=== PATIENT | female | born 1950 | race Hispanic/Latino ===

== ENCOUNTER 2016-11-06 12:02 | Inpatient (IN) | payer MEDICARE, MEDICAID ==
[2016-11-06 13:09] LABS: #Eosinphils 0.2 thou/uL (0.0-0.7); #Lymphocytes 0.9 thou/uL (1.20-3.40); #Monocytes 0.5 thou/uL (0.11-0.59); #Neutrophils 6.3 thou/uL (1.40-6.50); %Basophils 0.4 % (0.0-1.0); %Eosinophils 2.8 % (0.0-10.0); %Lymphocytes 11.5 % (21.0-51.0); %Monocytes 6.1 % (0.0-10.0); Hematocrit 21.3 % (36.0-47.0); Mean Platelet Volume 6.3 fL (7.4-10.4); Red Blood Cell (RBC) Count 2.36 mill/uL (4.20-5.40)
[2016-11-06 13:24] LABS: PTT 23.7 SEC (22.9-36.1); Prothrombin Time 13.3 SEC (12.0-14.7)
[2016-11-06 13:33] LABS: Troponin I Less than 0.010 ng/mL (< 0.028)
[2016-11-06 13:34] LABS: Lactic Acid - Sepsis 1.9 mmol/L (0.5-2.2)
[2016-11-06 13:37] LABS: ALT (SGPT) 9 U/L (8-55); AST (SGOT) 9 U/L (5-34); Alkaline Phosphatase 65 U/L (40-150); Anion Gap 14 mmol/L (10-20); BUN (Urea Nitrogen) 33 mg/dL (9.8-20.1); Bilirubin, Total Less than 0.2 mg/dL (0.2-1.2); CK (CPK) 58 U/L (29-168); Calc. Creatinine Clearance 0 mL/min (70-130); Calcium 8.7 mg/dL (7.8-10.44); Carbon Dioxide 22 mmol/L (23-31); Chloride 102 mmol/L (98-107); Estimated GFR-MDRD 45; Globulin 2.4 g/dL (2.4-3.5); Lipase 14 U/L (8-78); Protein, Total 5.1 g/dL (6.0-8.3)
[2016-11-06] MEDS ORDERED: Ondansetron HCl/PF 4 MG/2 ML Vial ONE (13:43)
--- NOTE | 2016-11-06 13:56 | RAD ---
PORTABLE CHEST 1 VIEW: DATE: 11/06/16. TIME: 1:31 p.m. HISTORY: Abdominal pain, nausea, vomiting, bilateral lower extremity swelling. FINDINGS: Comparison is made with the exam of 04/13/16. The heart size is mildly enlarged. The aorta is tortuous. The lungs are expanded without focal are as of consolidation, pneumothorax, laura pulmonary edema, or pleural effusions. There are degenerat artem changes in the acromioclavicular joints. IMPRESSION: No radiographic evidence of acute cardiopulmonary process. POS: [facility]
--- NOTE | 2016-11-06 14:01 | CT ---
ABDOMEN CT WITHOUT CONTRAST PELVIC CT WITHOUT CONTRAST: Date: 11/06/16 HISTORY: Abdominal pain, nausea and vomiting x3 weeks. Back surgery. Screw placement. TECHNIQUE: Abdomen and pelvic CT are performed without IV or oral contrast, utilizing renal stone protocol. Cor onal reformatted images are submitted for interpretation. COMPARISON: 10/18/16. FINDINGS: ABDOMEN CT: Dependent atelectatic changes in the lung bases. Heart size is within normal limits. No significant pericardial fluid. Visualized aorta has an overall normal caliber. There is some atherosclerosis. No periaortic fat stranding. Symmetric attenuation of the psoas muscles. No gastrohepatic, retrocrural, or periportal lymphadenopathy. Limited evaluation of the solid organs due to lack of IV contrast. No solid organ abnormality. Contracted gallbladder, likely due to nonfasting state. Surgically absent right kidney. With regard to the left kidney, there is compensatory hypertrophy. N o hydronephrosis, nephrolithiasis, or perinephric fat stranding. Left ureter has a normal caliber. N o hydroureter, periureteral fat stranding, or ureterolithiasis. Limited evaluation of the alimentary canal due to lack of oral contrast. Multiple normal caliber sm all bowel loops. Ileocecal junction is normal. There is some debris and fecal material in the append ix. No evidence of periappendiceal inflammation. The appendix appears to be unchanged when compared to the prior exam. There is scattered fecal material in the colon. Diverticulosis in the left hemico braxton. No diverticulitis. PELVIC CT: Surgically absent uterus. No mass, lymphadenopathy, free air, or free fluid. There are severe degenerative changes in the left and right hip. There is lumbar fusion hardware. IMPRESSION: 1. Status post right nephrectomy. 2. No evidence of nephrolithiasis or obstructive uropathy. POS: [facility]
[2016-11-06 14:02] LABS: Bilirubin Negative (Negative); Blood, Urine Negative (Negative); Glucose, Urine (Dipstick) Negative (Negative); Ketone, Urine Negative (Negative); Nitrite Negative (Negative); Protein, Urine (Dipstick) Negative (Neg-Trace); Urobilinogen 0.2 mg/dL (0.2-1.0)
[2016-11-06] MEDS ORDERED: Pantoprazole 40 MG VIAL ONE (14:16)
[2016-11-06] MEDS ORDERED: Sodium Chloride 0.9% 1,000 ML IV SCH (16:30)
[2016-11-06] MEDS ORDERED: Ondansetron ODT 4 MG TAB SL PRN (16:31)
[2016-11-06] MEDS ORDERED: Ondansetron HCl/PF 4 MG/2 ML Vial IVP PRN ×2 (16:31→16:53)
[2016-11-06 16:33] VITALS: BMI 37.2
[2016-11-06] MEDS ORDERED: Mag-Al 1200 mg/1200 mg/30 ML UDCUP PO PRN (16:53)
[2016-11-06] MEDS ORDERED: Loperamide HCl 2 MG CAP PO PRN (16:53)
[2016-11-06] MEDS ORDERED: Diabetic Tussin 200 MG/10 ML UDCUP PO PRN (16:53)
[2016-11-06] MEDS ORDERED: Loratadine 10 MG TAB PO PRN (16:53)
[2016-11-06] MEDS ORDERED: Artificial Tears 18 DROP/0.9 ML EA EYE PRN (16:53)
[2016-11-06] MEDS ORDERED: Dextrose 50% Abboject 50 ML SYRINGE SLOW IVP PRN (16:53)
[2016-11-06] MEDS ORDERED: Acetaminophen 325 MG TAB PO PRN (16:53)
[2016-11-06] MEDS ORDERED: Dextrose 5% in Water 1,000 ML IV PRN (16:53)
[2016-11-06] MEDS ORDERED: Milk Of Magnesia 30 ML UDCUP PO PRN (16:53)
[2016-11-06] MEDS ORDERED: Eucerin (Mineral Oil/Petrolatum,White) 30 gm Jar TOP PRN (16:53)
[2016-11-06] MEDS ORDERED: Ondansetron ODT 4 MG TAB PO PRN (16:53)
[2016-11-06] MEDS ORDERED: Sodium Chloride 0.65% Nasal 44 ML BOT EA NARE PRN (16:53)
[2016-11-06] MEDS ORDERED: Senokot 8.6 MG TAB PO PRN (16:53)
[2016-11-06] MEDS ORDERED: Zolpidem Tartrate 5 MG TAB PO PRN (16:53)
[2016-11-06] MEDS ORDERED: HumaLOG 300 UNITS/3 ML VIAL SC PRN ×2 (16:53)
[2016-11-06 17:29] LABS: Iron 80 ug/dL (50-170)
[2016-11-06] MEDS: HYDROcodone/Acetaminophen 5/325 mg Tablet PO PRN ×2 (17:42→23:13)
--- NOTE | 2016-11-06 18:09 | HP ---
PRIMARY CARE PHYSICIAN: Jenny Gongora, Family Nurse Practitioner. REASON FOR ADMISSION: Symptomatic anemia, abdominal pain. HISTORY OF PRESENT ILLNESS: A 66-year-old female with a history of hypertension, diabetes type 2, morbid obesity who came to the emergency room with complaint of abdominal pain. Her abdomin al pain is generalized, dull in nature, about 8/10 in intensity, associated with nausea and vomiting . She also gives a history of melanotic stool. She denies any hematemesis. She denies any hematoc hezia. She denies taking NSAID. The patient was feeling very weak, dizzy, and lightheaded at home and she was feeling shortness of breath on exertion for last couple of days. Today, she came to emergency room and her hemoglobin was found with 6.7. On 10/18/2016, her hemoglo bin was 8.5. This patient had severe anemia in 01/2015. At that time, patient had EGD and colonosc opy which was unremarkable and capsular endoscopy was advised at that time. Since then, she never h ad any further workup. She denies any ongoing hematochezia, melena. She denies any fever, chills, and UTI symptoms. She denies any syncope. She does report bilateral lower extremity pitting edema. She does report dyspnea on exertion. In the emergency room, 2 units of PRBC was typed and crossed and at this point the patient is being admitted to medical floor for further evaluation and treatment. REVIEW OF SYSTEMS: The following complete review of systems was negative, unless otherwise mentione d in the HPI or below: Constitutional: Weight loss or gain, ability to conduct usual activities. Skin: Rash, itching. Eyes: Double vision, pain. ENT/Mouth: Nose bleeding, neck stiffness, pain, tenderness. Cardiovascular: Palpitations, dyspnea on exertion, orthopnea. Respiratory: Shortness of breath, wheezing, cough, hemoptysis, fever or night sweats. Gastrointestinal: Poor appetite, abdominal pain, heartburn, nausea, vomiting, constipation, or diar thomas. Genitourinary: Urgency, frequency, dysuria, nocturia. Musculoskeletal: Pain, swelling. Neurologic/Psychiatric: Anxiety, depression. Allergy/Immunologic: Skin rash, bleeding tendency. Please see my HPI for pertinent positive and negative. All other review of systems reviewed and neg ative except as mentioned in the HPI. PAST MEDICAL HISTORY: Diabetes type 2, hypertension, dyslipidemia, morbid obesity, renal agenesis, history of iron deficiency anemia in past, chronic constipation, and chronic low back pain. PAST PSYCHIATRIC HISTORY: Anxiety, depression, and bipolar disorder/schizophrenia. Patient require d inpatient psychiatric hospitalization in 2004 in [place]. PAST SURGICAL HISTORY: Hysterectomy, back surgery on three disk with screw placement, colonoscopy, upper endoscopy, and kidney removal. SOCIAL HISTORY: Patient lives at home. She is . No history of tobacco, alcohol or illicit drug abuse. FAMILY HISTORY: No strong family history of premature coronary artery disease, stroke or cancer. ALLERGIES: No known drug allergies. CURRENT HOME MEDICATIONS: The patient does not have any medication with her at this point, but base d on our hospital record, the patient was on following medications. We need to verify her current h ome medications. Zanaflex 8 mg t.i.d. p.r.n., risperidone 1 mg p.o. at bedtime, metformin 500 mg p. o. b.i.d., glipizide 10 mg p.o. daily, MiraLax 17 grams p.o. daily, lovastatin 10 mg p.o. at bedtime , Prinzide one tablet p.o. daily, Lasix 20 mg p.o. daily, ferrous sulfate 325 mg p.o. t.i.d., Colace 100 mg p.o. b.i.d., and vitamin D3 1000 units p.o. daily. EMERGENCY ROOM COURSE: Patient is receiving Protonix drip, morphine 4 mg for abdominal pain and giv en 2 units of type and crossed, Zofran 8 mg given, and IV fluid given. PHYSICAL EXAMINATION: VITAL SIGNS: On arrival, blood pressure 91/56, pulse 70, respiratory rate 15, temperature 99.1, sat uration 97% on room air, weight 75.3 kilograms. GENERAL: Patient is currently chronically ill, pale, no obvious acute distress. HEAD: Normocephalic, atraumatic. EYES: Pupils round, reactive to light. Conjunctivae pale. ENT: Somewhat dry appearing mucous membranes. No oral lesions. No pharyngeal erythema, no exudate s. NECK: Supple. Range of motion is normal. No meningeal signs of irritation, short neck. LUNGS: Clear to auscultation without any rhonchi or rales. CARDIAC: S1 and S2 regular. Hemic murmur noted. No gallop, no rub. ABDOMEN: Obesity present. Diffuse tenderness. No peritoneal signs, no guarding, no rigidity, no r ebound, no Tobar's sign, no suprapubic discomfort. BACK: Examination unremarkable, no CVA tenderness. EXTREMITIES: Upper extremity passive movements of all joints are normal. Lower extremity bilateral pitting edema noted. Good peripheral pulsation. SKIN: No skin rash. HEMATOLOGICAL SYSTEM: No lymphadenopathy. PSYCHIATRIC: Normal affect. NEUROLOGIC: Nonfocal examination. IMAGING AND LABORATORY DATA: 1. EKG based on my review, premature atrial complexes, normal sinus rhythm. CT of the abdomen and pelvis, no acute abdominal process, status post right nephrectomy. 2. CBC: WBC 8.0, hemoglobin 6.7, platelet 526. INR 1.0. 3. BMP: Sodium 133, potassium 4.7, chloride 102, carbon dioxide 22, BUN 33, creatinine 1.20, gluco se 232, calcium 8.7, and lactic acid 1.9. 3. LFT: AST 9, ALT 9, alkaline phosphatase 65, albumin 2.7, CK 58, CK-MB 1.2, troponin I less than 0.010. BNP 121.9. Urinalysis normal. 4. Chest x-ray based on my review, no acute cardiopulmonary process. ASSESSMENT AND PLAN/IMPRESSION: 1. Symptomatic anemia. This patient's current hemoglobin is 6.7. A couple of weeks ago, her hemog lobin was 8.5. This patient does report melanotic stools. The patient does have diffuse abdominal pain. At this point, the patient will be admitted to medical floor. We will give her 1 unit of blo od transfusion for her symptomatic anemia and we will repeat CBC tomorrow. If needed, we will consi della transfusing more to keep hemoglobin around 7-8. We will also consult inside polisher for ane chago workup. 2. Melena, it is unclear whether this is related to gastrointestinal bleeding versus iron supplemen tation. We will check stool for guaiac. We will check anemia workup and we will consult gastroente rologist for endoscopic evaluation. At this point, the patient's blood pressure runs low and that i s why we will hold on blood pressure medication and we will closely monitor her hemoglobin and her h emodynamics. 3. Chronic kidney disease stage 3. We will monitor renal function. This patient has only one kidn ey and chronic kidney disease may be due to compensatory other kidney hypertrophy. 4. Diabetes type 2. We will continue with glipizide 10 mg p.o. daily, metformin 500 mg p.o. b.i.d. and insulin as per sliding scale protocol. If patient is n.p.o., then we will hold on oral hypogly cemic agents. 5. Hypertension, but currently low blood pressure and that is why we will hold on antihypertensive medication. 6. Schizophrenia. We will continue patient's psychiatric medication risperidone as per home dosage and Zoloft as per home dosage. 7. Dyslipidemia. We will continue patient's home medication lovastatin 10 mg p.o. daily. 8. Deep venous thrombosis prophylaxis. We will hold on Lovenox therapy because of melena history. 9. Gastrointestinal prophylaxis. Patient is already on Protonix therapy. At this point, the patie nt is on Protonix drip and subsequently we will change to p.o. Protonix. 10. Code status: The patient is FULL CODE. Patient's is the surrogate decision maker. DISPOSITION AND PLAN: Based on clinical course.
[2016-11-06] MEDS ORDERED: risperiDONE 1 MG TAB PO SCH (23:00)
[2016-11-07] MEDS: PANTOPRAZOLE IVP SCH ×3 (00:47→20:02)
[2016-11-07] MEDS: ADMIXTURE FEE IVP SCH ×3 (00:47→20:02)
[2016-11-07] MEDS: tiZANidine HCl 4 MG TAB PO PRN ×3 (00:47→16:00)
[2016-11-07] MEDS: SODIUM CHLORIDE IVP SCH ×3 (00:47→20:02)
[2016-11-07] MEDS: HYDROcodone/Acetaminophen 5/325 mg Tablet PO PRN ×5 (03:36→19:59)
[2016-11-07 05:59] LABS: #Basophils 0.1 thou/uL (0.0-0.2); #Eosinphils 0.2 thou/uL (0.0-0.7); #Lymphocytes 1.7 thou/uL (1.20-3.40); #Monocytes 0.8 thou/uL (0.11-0.59); %Basophils 0.8 % (0.0-1.0); %Eosinophils 3.6 % (0.0-10.0); %Monocytes 11.6 % (0.0-10.0); Hematocrit 30.4 % (36.0-47.0); Mean Platelet Volume 6.8 fL (7.4-10.4); Red Blood Cell (RBC) Count 3.32 mill/uL (4.20-5.40); White Blood Cell (WBC) Count 6.8 thou/uL (4.8-10.8)
[2016-11-07 07:02] LABS: Anion Gap 14 mmol/L (10-20); BUN (Urea Nitrogen) 24 mg/dL (9.8-20.1); Calc. Creatinine Clearance 69 mL/min (70-130); Calcium 7.9 mg/dL (7.8-10.44); Carbon Dioxide 19 mmol/L (23-31); Chloride 110 mmol/L (98-107); Estimated GFR-MDRD 58
[2016-11-07] MEDS ORDERED: tiZANidine HCl 4 MG TAB PO PRN (07:43)
[2016-11-07] MEDS: Lisinopril/Hydrochlorothiazide 20 mg/12.5 mg Tablet PO SCH (09:07)
[2016-11-07] MEDS: Pioglitazone HCl 15 MG TAB PO SCH (09:08)
[2016-11-07] MEDS: Ferrous Sulfate 325 MG TAB PO SCH ×2 (09:10→16:01)
[2016-11-07] MEDS: Lorazepam 1 MG TAB PO PRN (11:45)
--- NOTE | 2016-11-07 12:08 | PDOC.PN ---
- Subjective Encounter Start Date: 11/07/16 Encounter Start Time: 09:10 -: old records requested/rev spoke with spanish moss picker, pt has epigastric pain, she reports melena, no hematochezia Patient seen and examined. No overnight events - Objective Resuscitation Status: Resuscitation Status FULL:Full Resuscitation MAR Reviewed: Yes Vital Signs & Weight: Vital Signs (12 hours) Temp Pulse Pulse Resp BP BP BP 11/07/16 09:07 63 143/64 H 11/07/16 08:00 98.1 F 63 18 143/64 H 11/07/16 04:00 97.9 F 67 16 136/70 11/07/16 03:20 98.2 F 70 18 114/59 L Pulse Ox 11/07/16 09:07 11/07/16 08:00 100 11/07/16 04:00 99 11/07/16 03:20 Weight Weight 166 lb I&O: 11/06/16 11/07/16 11/08/16 06:59 06:59 06:59 Intake Total 940 Balance 940 Result Diagrams: 11/07/16 05:07 11/07/16 05:07 Additional Labs: Accuchecks 11/07/16 11/06/16 11/06/16 04:50 19:32 16:25 POC Glucose 165 H 154 H 149 H Phys Exam - Physical Examination Constitutional: NAD HEENT: PERRLA, moist MMs, sclera anicteric Neck: no JVD, supple Respiratory: no wheezing, no rales, no rhonchi Cardiovascular: RRR, no significant murmur, no rub Gastrointestinal: soft, no distention, positive bowel sounds obesity, epigasstric discomfort Musculoskeletal: pulses present, edema present Neurological: non-focal, normal sensation Psychiatric: normal affect, A&O x 3 Skin: no rash, normal turgor Dx/Plan (1) Epigastric abdominal pain Code(s): R10.13 - EPIGASTRIC PAIN Status: Acute (2) Melena Code(s): K92.1 - MELENA Status: Acute (3) Symptomatic anemia Code(s): D64.9 - ANEMIA, UNSPECIFIED Status: Acute (4) Chronic back pain Code(s): M54.9 - DORSALGIA, UNSPECIFIED; G89.29 - OTHER CHRONIC PAIN Status: Chronic (5) Diabetes type 2, controlled Code(s): E11.9 - TYPE 2 DIABETES MELLITUS WITHOUT COMPLICATIONS Status: Chronic (6) Dyslipidemia Code(s): E78.5 - HYPERLIPIDEMIA, UNSPECIFIED Status: Chronic (7) Hypertension Code(s): I10 - ESSENTIAL (PRIMARY) HYPERTENSION Status: Chronic (8) Iron deficiency anemia Code(s): D50.9 - IRON DEFICIENCY ANEMIA, UNSPECIFIED Status: Chronic (9) Obesity (BMI 30-39.9) Code(s): E66.9 - OBESITY, UNSPECIFIED Status: Chronic (10) Schizophrenia Code(s): F20.9 - SCHIZOPHRENIA, UNSPECIFIED Status: Chronic - Plan cont current plan of care, plan discussed w/ family * H & H improved after 2 unit * will repeat labs tomorrow * GI consulted * medication reviewed as below * symptomatic treatment. * discussed with pt and family with wool cleaner. Review of Systems - Review of Systems Eyes: negative: Pain, Vision Change, Conjunctivae Inflammation, Eyelid Inflammation, Redness, Other Respiratory: negative: Cough, Dry, Shortness of Breath, Hemoptysis, SOB with Excertion, Pleuritic Pain, Sputum, Wheezing Cardiovascular: negative: Chest Pain, Palpitations, Orthopnea, Paroxysmal Noc. Dyspnea, Edema, Light Headedness, Other Gastrointestinal: Abdominal Pain. negative: Nausea, Vomiting, Diarrhea, Constipation, Melena, Hematochezia, Other Genitourinary: negative: Dysuria, Frequency, Incontinence, Hematuria, Retention , Other Musculoskeletal: negative: Neck Pain, Shoulder Pain, Arm Pain, Back Pain, Hand Pain, Leg Pain, Foot Pain, Other - Medications/Allergies Allergies/Adverse Reactions: Allergies Allergy/AdvReac Type Severity Reaction Status Date / Time No Known Allergies Allergy Verified 10/27/13 23:58 Medications: Current Medications Acetaminophen (Tylenol) 650 mg PO Q4H PRN PRN Reason: Headache/Fever or Pain Last Admin: 11/06/16 21:14 Dose: 650 mg Hydrocodone Bitart/Acetaminophen ([place] 5/325) 1 tab PO Q4H PRN PRN Reason: Moderate Pain (4-6) Last Admin: 11/07/16 11:48 Dose: 1 tab Al Hydroxide/Mg Hydroxide (Maalox) 30 ml PO Q6H PRN PRN Reason: Heartburn or Indigestion Artificial Tears (Tears Naturale) 0 drop EA EYE PRN PRN PRN Reason: Dry Eyes Dextrose/Water (Dextrose 50%) 25 gm SLOW IVP PRN PRN PRN Reason: Hypoglycemia Ferrous Sulfate (Feosol) 325 mg PO BID-[facility] Last Admin: 11/07/16 09:10 Dose: 325 mg Glipizide (Glucotrol) 10 mg PO DAILY-[facility] Glucagon (Glucagon) 1 mg IM PRN PRN PRN Reason: Hypoglycemia Guaifenesin (Robitussin Sf) 200 mg PO Q4H PRN PRN Reason: Cough Lisinopril/HCTZ (Prinizide 20-12.5) 2 tab PO DAILY [facility] Last Admin: 11/07/16 09:07 Dose: 2 tab Hydralazine HCl (Apresoline) 10 mg SLOW IVP Q4H PRN PRN Reason: Systolic BP > 180 Pantoprazole Sodium 80 mg/Miscellaneous Medication 1 each/ Sodium Chloride 100 mls @ 10 mls/hr IVP INF [facility] Last Admin: 11/07/16 10:26 Dose: 100 mls Dextrose/Water (D5w) 1,000 mls @ 0 mls/hr IV .Q0M PRN; As Directed PRN Reason: Hypoglycemia Insulin Human Lispro (Humalog) 0 units SC .MODERATE SLIDING SC PRN PRN Reason: Moderate Correctional Scale Insulin Human Lispro (Humalog) 0 units SC .BEDTIME SLIDING SC PRN PRN Reason: Bedtime Correctional Scale Loperamide HCl (Imodium) 2 mg PO PRN PRN PRN Reason: Diarrhea/Loose Stools Loratadine (Claritin) 10 mg PO DAILYPRN PRN PRN Reason: Sinus Symptoms Lorazepam (Ativan) 1 mg PO Q4H PRN PRN Reason: Anxiety/Agitation Last Admin: 11/07/16 11:45 Dose: 1 mg Magnesium Hydroxide (Milk Of Magnesium) 30 ml PO DAILYPRN PRN PRN Reason: Constipation Metformin HCl (Glucophage) 500 mg PO BID-[facility] Last Admin: 11/07/16 09:10 Dose: 500 mg Mineral Oil/White Petrolatum (Eucerin Cream) 0 gm TOP BIDPRN PRN PRN Reason: Dry Skin Ondansetron HCl (Zofran Odt) 4 mg PO Q6H PRN PRN Reason: Nausea/Vomiting Ondansetron HCl (Zofran) 4 mg IVP Q6H PRN PRN Reason: Nausea/Vomiting Pioglitazone HCl (Actos) 15 mg PO DAILY [facility] Last Admin: 11/07/16 09:08 Dose: 15 mg Risperidone (Risperidone) 1 mg PO HS [facility] Risperidone (Risperidone) 1 mg PO HS DIMA Senna (Senokot) 2 tab PO HSPRN PRN PRN Reason: Constipation Simvastatin (Zocor) 10 mg PO HS [facility]IMA Sodium Chloride (Lorain Nasal [place] 0.65%) 0 ml EA NARE QIDPRN PRN PRN Reason: Nasal Congestion Tizanidine HCl (Zanaflex) 8 mg PO Q8H PRN PRN Reason: ARTHRITIS PAIN Last Admin: 11/07/16 09:06 Dose: 8 mg Tizanidine HCl (Zanaflex) 8 mg PO TID PRN PRN Reason: Muscle Spasm Zolpidem Tartrate (Ambien) 5 mg PO HSPRN PRN PRN Reason: Insomnia
[2016-11-07] MEDS ORDERED: Non-Formulary Item 1 EACH (Lovastatin [Lovastatin] 10 MG) PO SCH (17:00)
[2016-11-07] MEDS: Simvastatin 5 MG TAB PO SCH (19:59)
--- NOTE | 2016-11-07 20:00 | CON ---
DATE OF CONSULTATION: 11/07/2016 CHIEF COMPLAINT: Weakness and abdominal pain. HISTORY OF PRESENT ILLNESS: Ms. Bagley is a 66-year-old woman who has had progressive weakness ov er the last 3 weeks. She has had black stools once a day over the last couple of weeks. She report s aching abdominal pain at the upper epigastric region to the periumbilical region. This has been c ontinuous over the last few weeks as well. She had one episode of nausea with vomiting before she c judi in. She has tolerated a solid diet today. She has had no diarrhea or constipation. No red blo od in the stool. She presented with severe weakness to the point she has had trouble walking. She was found to have severe anemia with hemoglobin of 6.7 on presentation, she received 2 units of khan sfusion. She has had recurrent anemia over the last few years and has had transfusion in 2014 as we ll. She underwent previous endoscopies and colonoscopy to evaluate the anemia. No source has been found previously. Her last colonoscopy was in 2012 and was normal. She had EGDs in 2013 and 2014 w hich were negative. In 2012, she had an EGD that showed a 4 mm ulcer which is unlikely a significan t bleeding source. On review of the record, she has had multiple CT scans without contrast of her a bdomen and pelvis over the year. Since March of this year, she has had 5 CT scans of the abdomen and pelvis without contrast, all of which have been negative. Capsule endoscopy was previously adv ised; however, should not return to clinic to schedule this. PAST MEDICAL HISTORY: Recurrent iron deficiency anemia, chronic kidney disease, diabetes mellitus t ype 2 and hypertension. PAST SURGICAL HISTORY: Colonoscopy and upper endoscopy right nephrectomy, back surgery, hysterectom y. FAMILY HISTORY: Negative for GI malignancies. SOCIAL HISTORY: No alcohol, tobacco or drugs. ALLERGIES: No known drug allergies. MEDICATIONS: Currently include iron sulfate, glipizide, lisinopril with hydrochlorothiazide, metfor min, pantoprazole, pioglitazone, risperidone, and simvastatin. REVIEW OF SYSTEMS: Negative x10 systems reviewed except as stated in the history of present illness , please note that the history was obtained with the assistance of an cell biologist phone. OBJECTIVE: VITAL SIGNS: Temperature 98.1, pulse 62, blood pressure 125/59. GENERAL: She is in no acute distress. She is alert and oriented x3. HEENT: Eyes have no scleral icterus. Oropharynx is clear without lesions. NECK: No cervical or supraclavicular lymphadenopathy. LUNGS: Clear to auscultation bilaterally. HEART: Regular rate and rhythm without murmur. ABDOMEN: Soft. She reports tenderness in the epigastric region in the periumbilical region; howeve r, there is no guarding. Her bowel sounds are present. EXTREMITIES: No lower extremity edema. NEUROLOGIC: Cranial nerves are grossly intact. LABORATORY DATA: White blood cell count 6.8, hemoglobin 9.7, platelets 431,000. INR 1.0. Creatini ne 0.97, ferritin 5.38. Hemoglobin on presentation was 6.7 after 2 units transfusion is improved to 9.7. IMPRESSION: 1. Chronic iron deficiency anemia. She has had EGD in 2014 and 2013 that were normal. Biopsies fr om the duodenum were negative for celiac disease. EGD in 2012 showed a 4 mm ulcer. Colonoscopy in 2012 was normal. She does report now black stools and abdominal pain and early satiety. We will pl an on repeat endoscopy tomorrow to further evaluate the anemia and the abdominal pain. 2. Epigastric and periumbilical abdominal pain. She has had 5 CT scans of the abdomen and pelvis w ithout contrast since March. These have been all negative. RECOMMENDATIONS: EGD and colonoscopy tomorrow. I do have my concerns about her ability to prep wel l given her iron use and diabetes, poor mobility and having had some solid diets today. If these ex ams are negative for bleeding source, than she is advised to follow up as an outpatient for capsule endoscopy.
[2016-11-07] MEDS: risperiDONE 1 MG TAB PO SCH (20:01)
[2016-11-07] MEDS ORDERED: risperiDONE 1 MG TAB PO SCH (21:00)
[2016-11-08] MEDS: HYDROcodone/Acetaminophen 5/325 mg Tablet PO PRN ×5 (00:35→22:39)
[2016-11-08] MEDS: Lorazepam 1 MG TAB PO PRN (00:35)
[2016-11-08] MEDS: Ferrous Sulfate 325 MG TAB PO SCH ×2 (07:53→15:46)
[2016-11-08] MEDS: glipiZIDE 10 MG TAB PO SCH (07:53)
[2016-11-08] MEDS: Pioglitazone HCl 15 MG TAB PO SCH (07:54)
[2016-11-08] MEDS: tiZANidine HCl 4 MG TAB PO PRN ×2 (07:54→15:43)
[2016-11-08] MEDS: SODIUM CHLORIDE IVP SCH (08:15)
[2016-11-08] MEDS: ADMIXTURE FEE IVP SCH (08:15)
[2016-11-08] MEDS: PANTOPRAZOLE IVP SCH (08:15)
--- NOTE | 2016-11-08 10:41 | PDOC.PN ---
- Subjective Encounter Start Date: 11/08/16 Encounter Start Time: 09:30 Patient seen and examined. No new complaints. No overnight events - Objective Resuscitation Status: Resuscitation Status FULL:Full Resuscitation MAR Reviewed: Yes Vital Signs & Weight: Vital Signs (12 hours) Temp Pulse Resp BP BP Pulse Ox 11/08/16 08:45 98.7 F 77 20 152/71 H 99 11/08/16 08:00 99.8 F H 72 20 999 H 11/08/16 03:57 99.8 F H 72 20 149/74 H 99 11/08/16 00:15 98.1 F 68 20 151/76 H 99 Weight Admit Weight 166 lb Weight 166 lb I&O: 11/07/16 11/08/16 11/09/16 06:59 06:59 06:59 Intake Total 940 500 Balance 940 500 Result Diagrams: 11/07/16 05:07 11/07/16 05:07 Additional Labs: Accuchecks 11/08/16 11/07/16 11/07/16 03:56 19:21 15:29 POC Glucose 125 H 101 110 11/07/16 11:58 POC Glucose 267 H Phys Exam - Physical Examination Constitutional: NAD HEENT: PERRLA, moist MMs, sclera anicteric Neck: no JVD, supple Respiratory: no wheezing, no rales, no rhonchi Cardiovascular: RRR, no significant murmur, no rub Gastrointestinal: soft, non-tender, no distention, positive bowel sounds Musculoskeletal: no edema, pulses present Neurological: non-focal, normal sensation, moves all 4 limbs Psychiatric: normal affect, A&O x 3 Skin: no rash, normal turgor Dx/Plan (1) Epigastric abdominal pain Code(s): R10.13 - EPIGASTRIC PAIN Status: Acute (2) Melena Code(s): K92.1 - MELENA Status: Acute (3) Symptomatic anemia Code(s): D64.9 - ANEMIA, UNSPECIFIED Status: Acute (4) Chronic back pain Code(s): M54.9 - DORSALGIA, UNSPECIFIED; G89.29 - OTHER CHRONIC PAIN Status: Chronic (5) Diabetes type 2, controlled Code(s): E11.9 - TYPE 2 DIABETES MELLITUS WITHOUT COMPLICATIONS Status: Chronic (6) Dyslipidemia Code(s): E78.5 - HYPERLIPIDEMIA, UNSPECIFIED Status: Chronic (7) Hypertension Code(s): I10 - ESSENTIAL (PRIMARY) HYPERTENSION Status: Chronic (8) Iron deficiency anemia Code(s): D50.9 - IRON DEFICIENCY ANEMIA, UNSPECIFIED Status: Chronic (9) Obesity (BMI 30-39.9) Code(s): E66.9 - OBESITY, UNSPECIFIED Status: Chronic (10) Schizophrenia Code(s): F20.9 - SCHIZOPHRENIA, UNSPECIFIED Status: Chronic - Plan cont current plan of care, plan discussed w/ family * today clear liquid * later today start preparation for colonoscopy * tomorrow EGD and colonoscopy * if negative, will plan for discharge tomorrow * medication reviewed as below * symptomatic treatment.. Review of Systems - Review of Systems ENT: negative: Ear Pain, Ear Discharge, Nose Pain, Nose Discharge, Nose Congestion, Mouth Pain, Mouth Swelling, Throat Pain, Throat Swelling, Other Respiratory: negative: Cough, Dry, Shortness of Breath, Hemoptysis, SOB with Excertion, Pleuritic Pain, Sputum, Wheezing Cardiovascular: negative: Chest Pain, Palpitations, Orthopnea, Paroxysmal Noc. Dyspnea, Edema, Light Headedness, Other Gastrointestinal: negative: Nausea, Vomiting, Abdominal Pain, Diarrhea, Constipation, Melena, Hematochezia, Other Genitourinary: negative: Dysuria, Frequency, Incontinence, Hematuria, Retention , Other Musculoskeletal: negative: Neck Pain, Shoulder Pain, Arm Pain, Back Pain, Hand Pain, Leg Pain, Foot Pain, Other - Medications/Allergies Allergies/Adverse Reactions: Allergies Allergy/AdvReac Type Severity Reaction Status Date / Time No Known Allergies Allergy Verified 10/27/13 23:58 Medications: Current Medications Acetaminophen (Tylenol) 650 mg PO Q4H PRN PRN Reason: Headache/Fever or Pain Last Admin: 11/06/16 21:14 Dose: 650 mg Hydrocodone Bitart/Acetaminophen ([place] 5/325) 1 tab PO Q4H PRN PRN Reason: Moderate Pain (4-6) Last Admin: 11/08/16 09:24 Dose: 1 tab Al Hydroxide/Mg Hydroxide (Maalox) 30 ml PO Q6H PRN PRN Reason: Heartburn or Indigestion Artificial Tears (Tears Naturale) 0 drop EA EYE PRN PRN PRN Reason: Dry Eyes Dextrose/Water (Dextrose 50%) 25 gm SLOW IVP PRN PRN PRN Reason: Hypoglycemia Ferrous Sulfate (Feosol) 325 mg PO BID-[facility] Last Admin: 11/08/16 07:53 Dose: 325 mg Glipizide (Glucotrol) 10 mg PO DAILY-[facility] Last Admin: 11/08/16 07:53 Dose: 10 mg Glucagon (Glucagon) 1 mg IM PRN PRN PRN Reason: Hypoglycemia Guaifenesin (Robitussin Sf) 200 mg PO Q4H PRN PRN Reason: Cough Lisinopril/HCTZ (Prinizide 20-12.5) 2 tab PO DAILY [facility] Last Admin: 11/07/16 09:07 Dose: 2 tab Hydralazine HCl (Apresoline) 10 mg SLOW IVP Q4H PRN PRN Reason: Systolic BP > 180 Pantoprazole Sodium 80 mg/Miscellaneous Medication 1 each/ Sodium Chloride 100 mls @ 10 mls/hr IVP INF [facility] Last Admin: 11/08/16 08:15 Dose: 100 mls Dextrose/Water (D5w) 1,000 mls @ 0 mls/hr IV .Q0M PRN; As Directed PRN Reason: Hypoglycemia Insulin Human Lispro (Humalog) 0 units SC .MODERATE SLIDING SC PRN PRN Reason: Moderate Correctional Scale Last Admin: 11/07/16 12:44 Dose: 4 unit Insulin Human Lispro (Humalog) 0 units SC .BEDTIME SLIDING SC PRN PRN Reason: Bedtime Correctional Scale Loperamide HCl (Imodium) 2 mg PO PRN PRN PRN Reason: Diarrhea/Loose Stools Loratadine (Claritin) 10 mg PO DAILYPRN PRN PRN Reason: Sinus Symptoms Lorazepam (Ativan) 1 mg PO Q4H PRN PRN Reason: Anxiety/Agitation Last Admin: 11/08/16 00:35 Dose: 1 mg Magnesium Hydroxide (Milk Of Magnesium) 30 ml PO DAILYPRN PRN PRN Reason: Constipation Metformin HCl (Glucophage) 500 mg PO BID-[facility] Last Admin: 11/08/16 07:53 Dose: 500 mg Mineral Oil/White Petrolatum (Eucerin Cream) 0 gm TOP BIDPRN PRN PRN Reason: Dry Skin Ondansetron HCl (Zofran Odt) 4 mg PO Q6H PRN PRN Reason: Nausea/Vomiting Ondansetron HCl (Zofran) 4 mg IVP Q6H PRN PRN Reason: Nausea/Vomiting Pioglitazone HCl (Actos) 15 mg PO DAILY [facility] Last Admin: 11/08/16 07:54 Dose: 15 mg Polyethylene Glycol/Electrolytes (Golytely) 2,000 ml PO 1600,2200 [facility] Stop: 11/08/16 23:59 Risperidone (Risperidone) 1 mg PO HS [facility] Last Admin: 11/07/16 20:01 Dose: 1 mg Risperidone (Risperidone) 1 mg PO HS [facility] Last Admin: 11/07/16 20:01 Dose: 1 mg Senna (Senokot) 2 tab PO HSPRN PRN PRN Reason: Constipation Simvastatin (Zocor) 10 mg PO HS [facility] Last Admin: 11/07/16 19:59 Dose: 10 mg Sodium Chloride ([place] Nas[place] 0.65%) 0 ml EA NARE QIDPRN PRN PRN Reason: Nasal Congestion Tizanidine HCl (Zanaflex) 8 mg PO Q8H PRN PRN Reason: ARTHRITIS PAIN Last Admin: 11/08/16 07:54 Dose: 8 mg Tizanidine HCl (Zanaflex) 8 mg PO TID PRN PRN Reason: Muscle Spasm Zolpidem Tartrate (Ambien) 5 mg PO HSPRN PRN PRN Reason: Insomnia
[2016-11-08] MEDS: Lisinopril/Hydrochlorothiazide 20 mg/12.5 mg Tablet PO SCH (11:02)
--- NOTE | 2016-11-08 16:20 | PRG ---
DATE OF SERVICE: 11/08/2016 SUBJECTIVE: Ms. Bagley has been tolerating a solid diet, but she still complains of epigastric an d periumbilical abdominal pain. She had a formed stool last night. OBJECTIVE: VITAL SIGNS: Temperature 98.7, pulse 77, blood pressure 152/71. GENERAL: She is in no acute distress. She is awake and alert. LUNGS: Clear to auscultation bilaterally. HEART: Regular rate and rhythm without murmur. ABDOMEN: Soft. Mild tenderness in the abdomen without guarding. Bowel sounds are present. EXTREMITIES: Trace lower extremity edema. IMPRESSION: Chronic iron deficiency anemia. Negative endoscopy in the past, however, it has been s 2012 that she had a colonoscopy. She reported black stools prior to admission along with abdom inal pain and early satiety. RECOMMENDATIONS: EGD and colonoscopy tomorrow. She is receiving bowel prep today. If this is nega tive, then she will need to follow up as an outpatient for capsule endoscopy.
[2016-11-08] MEDS: GoLYTELY 4,000 ml Bottle PO SCH ×2 (16:32→20:27)
[2016-11-08] MEDS: risperiDONE 1 MG TAB PO SCH (20:27)
[2016-11-08] MEDS: Simvastatin 5 MG TAB PO SCH (20:27)
[2016-11-09] MEDS: tiZANidine HCl 4 MG TAB PO PRN (02:43)
[2016-11-09] MEDS: HYDROcodone/Acetaminophen 5/325 mg Tablet PO PRN ×2 (02:44→11:00)
[2016-11-09] MEDS ORDERED: Propofol 200 MG/20 ML VIAL ONE (09:44)
--- NOTE | 2016-11-09 10:42 | OP ---
DATE OF PROCEDURE: 11/09/2016 PROCEDURES: Esophagogastroduodenoscopy and colonoscopy. PREOPERATIVE DIAGNOSIS: Iron deficiency anemia. PROCEDURE IN DETAIL: Informed consent was obtained from the patient. She was sedated with total in travenous anesthesia. The bite block was placed and the endoscope was advanced easily to the second portion of the duodenum and retroflexion was performed in the stomach. The esophagus was normal. The GE junction was normal. The stomach was normal including retroflexed views. The pylorus and fi rst and second portions of the duodenum were normal. The patient was turned around. Rectal exam wa s performed and was normal. The colonoscope was advanced to the terminal ileum without difficulty. The mucosa of the terminal ileum was normal. The ileocecal valve and appendiceal orifice were gui rly identified. The colonic mucosa was normal throughout. Preparation quality was good. Retroflex views in the rectum were normal. IMPRESSION: 1. Normal esophagogastroduodenoscopy. 2. Normal colonoscopy to the terminal ileum. 3. Iron deficiency anemia with multiple negative upper and lower endoscopies. RECOMMENDATIONS: 1. Follow up in the office with Dr. Hicks to schedule capsule endoscopy of the small bowel. 2. Advanced diet. 3. I will sign off for now. Please call if GI can be of assistance.
[2016-11-09] MEDS: Ferrous Sulfate 325 MG TAB PO SCH (11:01)
[2016-11-09] MEDS: glipiZIDE 10 MG TAB PO SCH (11:01)
[2016-11-09] MEDS: Lisinopril/Hydrochlorothiazide 20 mg/12.5 mg Tablet PO SCH (11:02)
[2016-11-09] MEDS: Pioglitazone HCl 15 MG TAB PO SCH (11:02)
--- NOTE | 2016-11-09 11:13 | PDOC.PN ---
- Subjective Encounter Start Date: 11/09/16 Encounter Start Time: 08:45 Patient seen and examined. No new complaints. No overnight events - Objective Resuscitation Status: Resuscitation Status FULL:Full Resuscitation MAR Reviewed: Yes Vital Signs & Weight: Vital Signs (12 hours) Temp Pulse Resp BP Pulse Ox 11/09/16 11:02 65 11/09/16 10:50 97.6 F 68 16 139/80 99 11/09/16 07:42 97.9 F 65 16 11/09/16 07:41 97.9 F 65 16 141/83 H 99 11/09/16 04:00 97.8 F 60 20 136/62 100 11/09/16 00:04 97.9 F 63 20 142/63 H 97 Weight Admit Weight 166 lb Weight 166 lb I&O: 11/08/16 11/09/16 11/10/16 06:59 06:59 06:59 Intake Total 500 Balance 500 Result Diagrams: 11/07/16 05:07 11/07/16 05:07 Additional Labs: Accuchecks 11/09/16 11/09/16 11/08/16 10:59 04:07 19:17 POC Glucose 110 123 H 203 H 11/08/16 11/08/16 15:54 12:06 POC Glucose 183 H 194 H Phys Exam - Physical Examination Constitutional: NAD HEENT: PERRLA, moist MMs, sclera anicteric Neck: no JVD, supple Respiratory: no wheezing, no rales, no rhonchi Cardiovascular: RRR, no significant murmur, no rub Gastrointestinal: soft, non-tender, no distention, positive bowel sounds Musculoskeletal: no edema, pulses present Neurological: non-focal, normal sensation Psychiatric: normal affect, A&O x 3 Skin: normal turgor Dx/Plan (1) Epigastric abdominal pain Code(s): R10.13 - EPIGASTRIC PAIN Status: Acute (2) Melena Code(s): K92.1 - MELENA Status: Acute (3) Symptomatic anemia Code(s): D64.9 - ANEMIA, UNSPECIFIED Status: Acute (4) Chronic back pain Code(s): M54.9 - DORSALGIA, UNSPECIFIED; G89.29 - OTHER CHRONIC PAIN Status: Chronic (5) Diabetes type 2, controlled Code(s): E11.9 - TYPE 2 DIABETES MELLITUS WITHOUT COMPLICATIONS Status: Chronic (6) Dyslipidemia Code(s): E78.5 - HYPERLIPIDEMIA, UNSPECIFIED Status: Chronic (7) Hypertension Code(s): I10 - ESSENTIAL (PRIMARY) HYPERTENSION Status: Chronic (8) Iron deficiency anemia Code(s): D50.9 - IRON DEFICIENCY ANEMIA, UNSPECIFIED Status: Chronic (9) Obesity (BMI 30-39.9) Code(s): E66.9 - OBESITY, UNSPECIFIED Status: Chronic (10) Schizophrenia Code(s): F20.9 - SCHIZOPHRENIA, UNSPECIFIED Status: Chronic - Plan cont current plan of care * medication reviewed as below * symptomatic treatment. * see discharge summery * medically stable. * capsule endoscopy after discharge. Review of Systems - Review of Systems ENT: negative: Ear Pain, Ear Discharge, Nose Pain, Nose Discharge, Nose Congestion, Mouth Pain, Mouth Swelling, Throat Pain, Throat Swelling, Other Respiratory: negative: Cough, Dry, Shortness of Breath, Hemoptysis, SOB with Excertion, Pleuritic Pain, Sputum, Wheezing Cardiovascular: negative: Chest Pain, Palpitations, Orthopnea, Paroxysmal Noc. Dyspnea, Edema, Light Headedness, Other Gastrointestinal: negative: Nausea, Vomiting, Abdominal Pain, Diarrhea, Constipation, Melena, Hematochezia, Other Genitourinary: negative: Dysuria, Frequency, Incontinence, Hematuria, Retention , Other - Medications/Allergies Allergies/Adverse Reactions: Allergies Allergy/AdvReac Type Severity Reaction Status Date / Time No Known Allergies Allergy Verified 10/27/13 23:58 Medications: Current Medications Acetaminophen (Tylenol) 650 mg PO Q4H PRN PRN Reason: Headache/Fever or Pain Last Admin: 11/06/16 21:14 Dose: 650 mg Hydrocodone Bitart/Acetaminophen ([place] 5/325) 1 tab PO Q4H PRN PRN Reason: Moderate Pain (4-6) Last Admin: 11/09/16 11:00 Dose: 1 tab Al Hydroxide/Mg Hydroxide (Maalox) 30 ml PO Q6H PRN PRN Reason: Heartburn or Indigestion Artificial Tears (Tears Naturale) 0 drop EA EYE PRN PRN PRN Reason: Dry Eyes Dextrose/Water (Dextrose 50%) 25 gm SLOW IVP PRN PRN PRN Reason: Hypoglycemia Ferrous Sulfate (Feosol) 325 mg PO BID-[facility] Last Admin: 11/09/16 11:01 Dose: Not Given Glipizide (Glucotrol) 10 mg PO DAILY-[facility] Last Admin: 11/09/16 11:01 Dose: Not Given Glucagon (Glucagon) 1 mg IM PRN PRN PRN Reason: Hypoglycemia Guaifenesin (Robitussin Sf) 200 mg PO Q4H PRN PRN Reason: Cough Lisinopril/HCTZ (Prinizide 20-12.5) 2 tab PO DAILY [facility] Last Admin: 11/09/16 11:02 Dose: Not Given Hydralazine HCl (Apresoline) 10 mg SLOW IVP Q4H PRN PRN Reason: Systolic BP > 180 Dextrose/Water (D5w) 1,000 mls @ 0 mls/hr IV .Q0M PRN; As Directed PRN Reason: Hypoglycemia Insulin Human Lispro (Humalog) 0 units SC .MODERATE SLIDING SC PRN PRN Reason: Moderate Correctional Scale Last Admin: 11/07/16 12:44 Dose: 4 unit Insulin Human Lispro (Humalog) 0 units SC .BEDTIME SLIDING SC PRN PRN Reason: Bedtime Correctional Scale Loperamide HCl (Imodium) 2 mg PO PRN PRN PRN Reason: Diarrhea/Loose Stools Loratadine (Claritin) 10 mg PO DAILYPRN PRN PRN Reason: Sinus Symptoms Lorazepam (Ativan) 1 mg PO Q4H PRN PRN Reason: Anxiety/Agitation Last Admin: 11/08/16 00:35 Dose: 1 mg Magnesium Hydroxide (Milk Of Magnesium) 30 ml PO DAILYPRN PRN PRN Reason: Constipation Metformin HCl (Glucophage) 500 mg PO BID-[facility] Last Admin: 11/09/16 11:02 Dose: Not Given Mineral Oil/White Petrolatum (Eucerin Cream) 0 gm TOP BIDPRN PRN PRN Reason: Dry Skin Ondansetron HCl (Zofran Odt) 4 mg PO Q6H PRN PRN Reason: Nausea/Vomiting Ondansetron HCl (Zofran) 4 mg IVP Q6H PRN PRN Reason: Nausea/Vomiting Last Admin: 11/08/16 16:31 Dose: 4 mg Pantoprazole Sodium (Protonix) 40 mg PO DAILY [facility] Pioglitazone HCl (Actos) 15 mg PO DAILY [facility] Last Admin: 11/09/16 11:02 Dose: Not Given Risperidone (Risperidone) 1 mg PO HS [facility] Last Admin: 11/08/16 20:27 Dose: 1 mg Senna (Senokot) 2 tab PO HSPRN PRN PRN Reason: Constipation Simvastatin (Zocor) 10 mg PO HS [facility] Last Admin: 11/08/16 20:27 Dose: 10 mg Sodium Chloride ([place] Nasal [place] 0.65%) 0 ml EA NARE QIDPRN PRN PRN Reason: Nasal Congestion Tizanidine HCl (Zanaflex) 8 mg PO Q8H PRN PRN Reason: ARTHRITIS PAIN Last Admin: 11/09/16 02:43 Dose: 8 mg Tizanidine HCl (Zanaflex) 8 mg PO TID PRN PRN Reason: Muscle Spasm Zolpidem Tartrate (Ambien) 5 mg PO HSPRN PRN PRN Reason: Insomnia
[2016-11-09 11:37] VITALS: BP 130/61; TEMP 99.2
--- NOTE | 2016-11-09 13:20 | DIS ---
DATE OF ADMISSION: 11/06/2016 DATE OF DISCHARGE: 11/09/2016 PRIMARY CARE PHYSICIAN: Jenny Gongora N.P. DISCHARGE DISPOSITION: Home. PRIMARY DISCHARGE DIAGNOSES: 1. Symptomatic anemia, status post 2 units blood transfusion. 2. Negative esophagogastroduodenoscopy and colonoscopy. SECONDARY DISCHARGE DIAGNOSES: Chronic low back pain, diabetes type 2, dyslipidemia, hypertension, morbid obesity with body mass index 37, and schizophrenia. PRIMARY PROCEDURE/OPERATION: EGD and colonoscopy was normal. RADIOLOGICAL INVESTIGATION: Abdomen and pelvis CT scan was normal. Chest x-ray normal. SIGNIFICANT DATA: Hemoglobin 9.7, INR 1.0, creatinine 0.97. Urinalysis normal. Stool for guaiac n ot done. DISCHARGE MEDICATIONS: New medication only ferrous sulfate 325 mg p.o. b.i.d. Rest of medication, the patient will continue as per previous. CONTRAINDICATIONS: None. CODE STATUS: FULL CODE. INPATIENT CONSULTANTS: Dr. Jesús Wadsworth was consulted for anemia workup, who did EGD and colonosco py. TEST RESULTS PENDING ON DISCHARGE: None. ALLERGIES: No known drug allergy. DISCHARGE PLAN: Post hospital, the patient will follow with primary care physician and Dr. Espinosa as advised. HOSPITAL COURSE: A 66-year-old female who was admitted for symptomatic anemia. She was also having epigastric abdominal pain and she also reported to us melena and that is why we consulted gastroent erologist. They did EGD and colonoscopy that was normal. Her hemoglobin on admission was 6.7; afte r 2 units of blood transfusion, her hemoglobin was 9.7. The patient is seen and examined at bedside today. Please see my progress note from today for furth er details. The patient is medically stable for discharge. This patient is advised to get outpatie nt capsule endoscopy through GI Clinic.
== END 2016-11-09 13:20 | disposition home or self-care (01) | DRG 812 ==
LOC: ERS 12:02 → T4-A 14:00 → T4-B 16:12
PROVIDERS: ADMIT Internal Medicine; ATTEND Internal Medicine
PROC: 30233N1 Transfusion of Nonautologous Red Blood Cells into Peripheral Vein, Percutaneous Approach (ICD-10-PCS; principal; 2016-11-07)
PROC: 0DJ08ZZ Inspection of Upper Intestinal Tract, Via Natural or Artificial Opening Endoscopic (ICD-10-PCS; 2016-11-09)
PROC: 0DJD8ZZ Inspection of Lower Intestinal Tract, Via Natural or Artificial Opening Endoscopic (ICD-10-PCS; 2016-11-09)
DX: D64.9 Anemia, unspecified (principal); E11.22 Type 2 diabetes mellitus with diabetic chronic kidney disease; N18.3 Chronic kidney disease, stage 3 (moderate); D50.9 Iron deficiency anemia, unspecified; E66.01 Morbid (severe) obesity due to excess calories; E78.5 Hyperlipidemia, unspecified; M54.5 Low back pain; Z68.37 Body mass index [BMI] 37.0-37.9, adult; F20.9 Schizophrenia, unspecified; F41.9 Anxiety disorder, unspecified; I12.9 Hypertensive chronic kidney disease with stage 1 through stage 4 chronic kidney disease, or unspecified chronic kidney disease
CPT/HCPCS: 36415; 36416; 36430; 71010; 74176; 80048; 80053; 81003; 82550; 82553; 82728; 83540; 83550; 83605; 83690; 83880; 84484; 85025; 85610; 85730; 86850; 86900; 86901; 93005; 96361; 96365; 96375; 96376; C9113; G8978-GP-CK; G8979-GP-CI; J2270; J2405; J2704; J7050; P9016

== ENCOUNTER 2017-01-11 08:11 | Outpatient (CLI) | payer MEDICARE ==
--- NOTE | 2017-01-11 14:26 | ULT ---
GALLBLADDER ULTRASOUND: HISTORY: Right upper quadrant pain. FINDINGS: The liver appears unremarkable. The gallbladder has a normal sonographic appearance. No evidence of gallstones. The common duct is normal caliber measured at 3-4 mm. The pancreas is obscured. The right kidney is absent. IMPRESSION: Unremarkable gallbladder ultrasound. POS: [facility]
--- NOTE | 2017-01-11 18:51 | NM ---
NUCLEAR MEDICINE GASTRIC EMPTYING SCAN: History: Periumbilical pain. Comparison: None. Technique: Patient was administered 1.8 mCi Technetium 99M Sulfur-Colloid orally in an egg mixture. FINDINGS: 0% emptying immediately. 38% emptying at 30 minutes. 52% emptying at 60 minutes. 67% emptying at 2 hours. 88% emptying at 3 hours. 100% emptying at 4 hours. T time is 54 minutes. IMPRESSION: Normal T time. POS: [facility]
== END 2017-01-11 08:12 | disposition home or self-care (01) ==
LOC: ULT 08:11
PROVIDERS: ATTEND Internal Medicine Gastroenterology
DX: E11.9 Type 2 diabetes mellitus without complications (principal); D50.0 Iron deficiency anemia secondary to blood loss (chronic); R10.33 Periumbilical pain; R11.0 Nausea
CPT/HCPCS: 76705; 78264; A9541

== ENCOUNTER 2017-04-13 14:30 | Outpatient (CLI) | payer MEDICARE | END 2017-04-13 14:31 | disposition home or self-care (01) | LOC: BICMAMMO 14:30 | PROVIDERS: ATTEND Nurse Practitioner Family | DX: Z12.31 Encounter for screening mammogram for malignant neoplasm of breast (principal) | CPT/HCPCS: 77063; 77067 ==

== ENCOUNTER 2017-04-20 17:44 | Inpatient (IN) | payer MEDICARE ==
[2017-04-20 18:39] LABS: #Eosinphils 0.1 thou/uL (0.0-0.7); #Lymphocytes 1.5 thou/uL (1.20-3.40); #Monocytes 0.7 thou/uL (0.11-0.59); #Neutrophils 6.7 thou/uL (1.40-6.50); %Basophils 0.1 % (0.0-1.0); %Eosinophils 0.9 % (0.0-10.0); %Lymphocytes 17.1 % (21.0-51.0); %Monocytes 7.6 % (0.0-10.0); %Neutrophils 74.2 % (42.0-75.0); Mean Corpuscular HGB CONC 31.6 g/dL (32.0-36.0); Mean Corpuscular Hemoglobin 28.9 pg (27.0-31.0); Mean Corpuscular Volume 91.5 fl (81.0-99.0); Mean Platelet Volume 7.2 fL (7.4-10.4); Platelet Count 254 thou/uL (130-400); RBC Distribution Width 14.4 % (11.5-14.5); Red Blood Cell (RBC) Count 3.45 mill/uL (4.20-5.40)
[2017-04-20] MEDS ORDERED: diphenhydrAMINE 50 MG/ML VIAL ONE (18:58)
[2017-04-20] MEDS ORDERED: Promethazine HCl 25 MG/ML VIAL ONE (18:58)
[2017-04-20 18:59] LABS: ALT (SGPT) 10 U/L (8-55); AST (SGOT) 14 U/L (5-34); Albumin 3.7 g/dL (3.4-4.8); Alkaline Phosphatase 59 U/L (40-150); Anion Gap 14 mmol/L (10-20); BUN (Urea Nitrogen) 47 mg/dL (9.8-20.1); Bilirubin, Total 0.2 mg/dL (0.2-1.2); Calc. Creatinine Clearance 0 mL/min (70-130); Calcium 9.1 mg/dL (7.8-10.44); Carbon Dioxide 23 mmol/L (23-31); Chloride 94 mmol/L (98-107); Estimated GFR-MDRD 43; Globulin 2.9 g/dL (2.4-3.5); Glucose 162 mg/dL (80-115); Potassium 4.7 mmol/L (3.5-5.1); Protein, Total 6.6 g/dL (6.0-8.3); Sodium 126 mmol/L (136-145)
--- NOTE | 2017-04-20 21:54 | CT ---
CT BRAIN WITHOUT CONTRAST 04/20/17 HISTORY: Headache. COMPARISON: CT brain from 2015. FINDINGS: No acute territorial infarct or hemorrhage. No midline shift or mass effect. Ventricular size and ext ra-axial CSF spaces are normal. Orbits are unremarkable. The paranasal sinuses and mastoids are clear. IMPRESSION: No acute intracranial abnormality. No significant change. POS: [facility]
[2017-04-20] MEDS ORDERED: Ondansetron HCl/PF 4 MG/2 ML Vial IVP PRN (23:20)
[2017-04-20] MEDS ORDERED: Ondansetron ODT 4 MG TAB SL PRN (23:20)
[2017-04-20] MEDS ORDERED: Acetaminophen 325 MG TAB PO PRN (23:20)
[2017-04-20] MEDS ORDERED: Sodium Chloride 0.9% 1,000 ML IV SCH (23:30)
[2017-04-21 00:04] VITALS: BMI 40.7
[2017-04-21] MEDS ORDERED: Acetaminophen/Codeine 30-300mg Tablet PO PRN (00:38)
[2017-04-21] MEDS ORDERED: tiZANidine HCl 4 MG TAB PO PRN (05:40)
[2017-04-21] MEDS ORDERED: Sodium Chloride 0.9% 1,000 ML IV SCH (06:15)
[2017-04-21 06:54] LABS: Anion Gap 11 mmol/L (10-20); BUN (Urea Nitrogen) 34 mg/dL (9.8-20.1); Calc. Creatinine Clearance 72 mL/min (70-130); Calcium 8.8 mg/dL (7.8-10.44); Carbon Dioxide 25 mmol/L (23-31); Chloride 105 mmol/L (98-107); Estimated GFR-MDRD 54; Glucose 167 mg/dL (80-115); Potassium 4.8 mmol/L (3.5-5.1); Sodium 136 mmol/L (136-145)
[2017-04-21] MEDS ORDERED: glipiZIDE 10 MG TAB PO SCH (07:30)
--- NOTE | 2017-04-21 07:42 | HP ---
CHIEF COMPLAINT: Dizziness. HISTORY OF PRESENT ILLNESS: A 66-year-old female with a known history of schizophrenia, type 2 diabe jessica, hypertension, chronic anemia, who presents with a chief complaint of dizziness. It appears that on presentation to the emergency department, she has been having 1 week's duration of abdominal pain and decreased oral intake secondary to the abdominal discomfort. She subsequently developed dizzine ss and a headache. She denies any prior similar episodes. REVIEW OF SYSTEMS: As per HPI. Constitutional: No recent fevers or chills or significant weight ch anges. HEENT: Dizziness as noted above with a headache. No difficulty with swallowing. Gastrointe stinal: Nausea as noted above. Generalized abdominal discomfort. The patient currently denies havi ng these 2 symptoms, but endorses having occurred over the past week. Denies any diarrhea, no consti pation. Cardiovascular: No chest pain or chest pressure. No left-sided arm numbness or tingling. Respiratory: No new cough, no new congestion, no new upper respiratory-type symptoms. Musculoskelet al: No new arthralgias or myalgias. Remainder of review of systems was negative. HPI and review of systems obtained with the aid of a [place]-speaking bedside nurse. PAST MEDICAL HISTORY: As per above includes, 1. Hypertension. 2. Type 2 diabetes. 3. Schizophrenia. 4. Obesity. 5. Chronic anemia. 6. Chronic back pain. 7. Chronic constipation. 8. Status post hysterectomy. 9. Status post back surgery. HOME MEDICATIONS: Please see the EMR for full details. The patient denies any recent changes in the last month to her medication regimen. Denies any new [id number] vitamin supplements or herbal regimens. FAMILY HISTORY: The patient denies any family history of recurrent dizziness or strokes. SOCIAL HISTORY: The patient's significant other is with her at bedside. Denies any active tobacco, alcohol, or illicit drug use. Wishes to be FULL CODE at this point in time. ALLERGIES: No known drug allergies. PHYSICAL EXAMINATION: VITAL SIGNS: Temperature of 98.4, heart rate of 78, blood pressure 127/61, respirations 16, satting 100% on room air. GENERAL: The patient is awake, alert, appropriate, in no acute distress, lying in the hospital bed. HEENT: Normocephalic, atraumatic, obese, slightly dry mucous membranes. Extraocular motions are int act. CARDIOVASCULAR: S1 and S2. Soft heart tones, likely secondary to habitus. No murmurs, rubs, or gal lops. Pulses 2+ bilateral upper extremity. RESPIRATORY: Grossly clear to auscultation. No wheezes, rales, or rhonchi. Marginal air movement. ABDOMEN: Obese, positive bowel sounds, soft, nontender to palpation. LABORATORY DATA AND IMAGING: WBC 9.0, hemoglobin 10.0, hematocrit 31.5, platelets 254. Sodium 126, potassium 4.7, chloride 94, bicarbonate 14, BUN 47, creatinine 1.25, glucose 162, calcium 9.1, AST 14 , ALT 10, alkaline phosphatase 59. CRP 0.66, total protein 6.6, albumin 3.7. 04/20/2017, brain CT, impression, "no acute intracranial abnormality. No significant change." ASSESSMENT AND PLAN: A 66-year-old female, who presents with a chief complaint of dizziness. 1. Dizziness. Check orthostatic vital signs. I suspect that this may be a component of volume depl etion and dehydration secondary to decreased oral intake as above. 2. Decreased oral intake. The patient currently states that she no longer has abdominal pain and en dorses being hungry. We will trial a regular diet. If she is unable to tolerate this, would need fu rther evaluation for her abdominal pain. 3. Hyponatremia, likely secondary to the above in the setting of patient continued home thiazide use . Discontinue thiazide diuretic. Closely monitor hemodynamics, respiratory status, and intake and o utput. Recheck serial BMP to closely monitor for hyponatremia. This could also be related to the darrel theodore's presenting issues of headache and dizziness, which are currently improved. 4. Schizophrenia. Otherwise, continue the patient on her home regimen. 5. Hypertension. Closely monitor off thiazide diuretics. Addition of new agent as needed to [place] in adequate blood pressure control. 6. Type 2 diabetes. Continue home regimen. 7. Diet: Diabetic, cardiac. 8. Activity: Out of bed as tolerated. 9. Deep venous thrombosis prophylaxis. The patient will be admitted on inpatient basis with telemetry. The patient is FULL CODE as halima dawson above. Thank you for asking me to care for the patient. Questions or concerns, contact me at [facility].
[2017-04-21] MEDS ORDERED: metFORMIN 500 MG TAB PO SCH (08:00)
[2017-04-21] MEDS: traMADol HCl 50 MG TAB PO PRN (08:54)
[2017-04-21] MEDS: Docusate 100 MG CAP PO SCH (08:55)
[2017-04-21] MEDS: Ferrous Sulfate 325 MG TAB PO SCH ×2 (08:55→16:30)
[2017-04-21] MEDS: Pioglitazone HCl 15 MG TAB PO SCH (08:56)
[2017-04-21] MEDS: Enoxaparin Sodium 30 MG/0.3 ML SYRINGE SC SCH (08:57)
[2017-04-21] MEDS: Simvastatin 5 MG TAB PO SCH (08:57)
[2017-04-21] MEDS ORDERED: Furosemide 20 MG TAB PO SCH (09:00)
[2017-04-21 10:26] LABS: Anion Gap 8 mmol/L (10-20); BUN (Urea Nitrogen) 33 mg/dL (9.8-20.1); Calc. Creatinine Clearance 69 mL/min (70-130); Calcium 8.5 mg/dL (7.8-10.44); Carbon Dioxide 26 mmol/L (23-31); Chloride 105 mmol/L (98-107); Estimated GFR-MDRD 52; Glucose 290 mg/dL (80-115); Potassium 4.2 mmol/L (3.5-5.1); Sodium 135 mmol/L (136-145)
[2017-04-21] MEDS: Acetaminophen/Codeine 30-300mg Tablet PO PRN ×3 (12:31→21:05)
[2017-04-21] MEDS ORDERED: Dextrose 5% in Water 1,000 ML IV SCH (12:45)
--- NOTE | 2017-04-21 15:07 | PQF ---
DATE: 04-21-17 ATTN: DR. CE RODRIGUEZ Please exercise your independent, professional judgment in responding to the clarification form. Clinical indicators are provided on the bottom of this form for your review Please check appropriate box(s): [ ] Acute Renal Failure (ARF) / Acute Kidney Injury (NING) [ x ] Acute on Chronic Renal Failure please specify Stage of CKD _3_ (see below) [ ] Other diagnosis [ ] Unable to determine In addition, please specify: Present on Admission (POA): [ ] Yes [ ] No [ ] Unable to determine National Kidney Foundation Guidelines for CKD Staging Stage I Kidney damage with normal or increased GFR GFR > 90 Stage IIKidney damage with mildly decreased GFR GFR 60-89 Stage III Kidney damage with moderately decreased GFR GFR 30-59 Stage IVKidney damage with severely decreased GFR GFR 16-29 Stage VKidney failure GFR <15 ESRD End Stage Renal Disease On dialysis Acute Renal Failure/Acute Kidney Failure defined as: Increases in SCr by (>) 0.3 mg/dl within 48 hours OR- Increases in SCr by (>) 1.5 times baseline, known or presumed to have occurred within the prior 7 days OR- Urine volume < 0.5 ml/kg/hour for 6 hours (KDIGO supplement 2012 for RIFLE/AMADOU criteria) For continuity of documentation, please document condition throughout progress notes and discharge summary. Thank You. CLINICAL INDICATORS - SIGNS / SYMPTOMS / LABS ER DOCUMENTATION: HX OF DM 2, HTN, ANEMIA, 1 KIDNEY (LEFT, CONGENITAL) GFR: 18: 43 3-18: 54 3-18: 52 CREATININE: 18: 1.25 3-18: 1.02 3-18: 1.06 BUN: 3-18: 42 3--18: 34 3--18: 33 RISK FACTORS: ER DOCUMENTATION: HOME LASIX, LISINOPRIL H&P: I SUSPECT THAT THIS MAY BE A COMPONENT OF VOLUME DEPLETION AND DEHYDRATION SECONDARY TO DECREASED ORAL INTAKE ER DOCUMENTATION: HX OF DM 2, HTN, ANEMIA, 1 KIDNEY (LEFT, CONGENITAL) TREATMENTS: (MAR) IVF (This form is maintained as a part of the permanent medical record) 2014 [employer]. All Rights Reserved [email or web address] Office: [phone] SARA
[2017-04-21] MEDS ORDERED: Dextrose 50% Abboject 50 ML SYRINGE SLOW IVP PRN (16:08)
[2017-04-21] MEDS ORDERED: Insulin Regular 300 UNITS/3 ML VIAL SC PRN (16:08)
[2017-04-21] MEDS ORDERED: Dextrose 5% in Water 1,000 ML IV PRN (16:08)
[2017-04-21] MEDS: Insulin Regular 300 UNITS/3 ML VIAL SC PRN (16:29)
[2017-04-21 17:37] LABS: Anion Gap 10 mmol/L (10-20); BUN (Urea Nitrogen) 29 mg/dL (9.8-20.1); Calc. Creatinine Clearance 70 mL/min (70-130); Calcium 8.5 mg/dL (7.8-10.44); Carbon Dioxide 26 mmol/L (23-31); Chloride 100 mmol/L (98-107); Estimated GFR-MDRD 53; Glucose 140 mg/dL (80-115); Sodium 132 mmol/L (136-145)
[2017-04-21] MEDS ORDERED: Ondansetron ODT 4 MG TAB SL PRN (20:09)
[2017-04-21] MEDS ORDERED: Ondansetron HCl/PF 4 MG/2 ML Vial IVP PRN (20:09)
[2017-04-21] MEDS: risperiDONE 1 MG TAB PO SCH (21:06)
[2017-04-22] MEDS: Acetaminophen/Codeine 30-300mg Tablet PO PRN ×5 (00:58→22:03)
[2017-04-22 05:50] LABS: #Eosinphils 0.1 thou/uL (0.0-0.7); #Lymphocytes 1.6 thou/uL (1.20-3.40); #Monocytes 0.5 thou/uL (0.11-0.59); #Neutrophils 5.1 thou/uL (1.40-6.50); %Basophils 0.4 % (0.0-1.0); %Eosinophils 0.8 % (0.0-10.0); %Lymphocytes 22.3 % (21.0-51.0); %Monocytes 6.5 % (0.0-10.0); Mean Corpuscular HGB CONC 32.1 g/dL (32.0-36.0); Mean Corpuscular Hemoglobin 29.7 pg (27.0-31.0); Mean Corpuscular Volume 92.6 fl (81.0-99.0); Mean Platelet Volume 8.2 fL (7.4-10.4); Platelet Count 229 thou/uL (130-400); RBC Distribution Width 14.8 % (11.5-14.5); Red Blood Cell (RBC) Count 3.02 mill/uL (4.20-5.40); White Blood Cell (WBC) Count 7.3 thou/uL (4.8-10.8)
[2017-04-22 06:33] LABS: Magnesium 2.1 mg/dL (1.6-2.6); Phosphorus 2.8 mg/dL (2.3-4.7)
[2017-04-22] MEDS: Ferrous Sulfate 325 MG TAB PO SCH ×2 (08:39→17:15)
[2017-04-22] MEDS: Docusate 100 MG CAP PO SCH (08:39)
[2017-04-22] MEDS: glipiZIDE 5 MG TAB PO SCH (08:39)
[2017-04-22] MEDS: Enoxaparin Sodium 30 MG/0.3 ML SYRINGE SC SCH (08:40)
[2017-04-22] MEDS: Pioglitazone HCl 15 MG TAB PO SCH (08:41)
[2017-04-22 13:32] LABS: Anion Gap 11 mmol/L (10-20); BUN (Urea Nitrogen) 23 mg/dL (9.8-20.1); Calc. Creatinine Clearance 80 mL/min (70-130); Calcium 8.6 mg/dL (7.8-10.44); Carbon Dioxide 24 mmol/L (23-31); Chloride 103 mmol/L (98-107); Estimated GFR-MDRD 62; Glucose 155 mg/dL (80-115); Potassium 4.4 mmol/L (3.5-5.1); Sodium 134 mmol/L (136-145)
[2017-04-22] MEDS: Simvastatin 5 MG TAB PO SCH (17:16)
[2017-04-22] MEDS: Nystatin Powder 15 GM BOT TOP SCH (20:26)
[2017-04-22] MEDS: risperiDONE 1 MG TAB PO SCH (20:27)
--- NOTE | 2017-04-22 21:58 | PDOC.PN ---
- Subjective Encounter Start Date: 04/22/17 Encounter Start Time: 11:00 Patient seen and examined. No new complaints. No overnight events. Overall feels better. Waiting for PT to ambulate. - Objective Resuscitation Status: Resuscitation Status FULL:Full Resuscitation MAR Reviewed: Yes Vital Signs & Weight: Vital Signs (12 hours) Temp Pulse Resp BP Pulse Ox 04/22/17 19:58 99.0 F 84 16 144/65 H 97 04/22/17 16:00 99 F 106 H 16 138/76 100 04/22/17 12:00 99.3 F 97 14 166/70 H 98 Weight Weight 181 lb 9.6 oz I&O: 04/21/17 04/22/17 04/23/17 06:59 06:59 06:59 Intake Total 2150 800 Balance 2150 800 Result Diagrams: 04/22/17 05:03 04/23/17 05:00 Additional Labs: Accuchecks 04/22/17 04/22/17 04/22/17 19:59 15:51 11:24 POC Glucose 189 H 113 H 196 H 04/22/17 04/21/17 06:09 22:05 POC Glucose 118 H 113 H Radiology Reviewed by me: Yes (CT brain - negative) Phys Exam - Physical Examination Constitutional: NAD HEENT: PERRLA Respiratory: no wheezing, no rales, no rhonchi, clear to auscultation bilateral Cardiovascular: RRR, no rub no heaves/pulsations Gastrointestinal: soft, non-tender, no distention, positive bowel sounds Musculoskeletal: no edema Neurological: non-focal, normal sensation, moves all 4 limbs Psychiatric: A&O x 3 Dx/Plan - Plan DVT proph w/SCDs IMPRESSION: 1. NING on CKD 3 - prob due to diuretics/ACEI - Pt is on HCTZ/Lisinopril/Lasix 2. Dizziness - prob due to hypovolemia 3. Hyponatremia - prob due to diuretics - improving 4. DM2/Morbid obesity BMI 40.7 5. Other issues per H&P PLAN: * AM labs * ACEI/Diuretics on hold * PT Eval * Prob dc in AM if stable on low dose ACEI/Lisinopril * Advised patient to take Lasix only as needed * Cont sliding scale * Cont current meds as below * 2 lit/day fluid rest * BMP after 1 week * [facility] Eval Review of Systems - Review of Systems Respiratory: negative: Cough, Dry, Shortness of Breath, Hemoptysis, SOB with Excertion, Pleuritic Pain, Sputum, Wheezing Cardiovascular: negative: chest pain, palpitations, orthopnea, paroxysmal nocturnal dyspnea, edema, light headedness Gastrointestinal: negative: Nausea, Vomiting, Abdominal Pain, Diarrhea, Constipation, Melena, Hematochezia - Medications/Allergies Allergies/Adverse Reactions: Allergies Allergy/AdvReac Type Severity Reaction Status Date / Time No Known Allergies Allergy Verified 04/20/17 23:49 Medications: Current Medications Acetaminophen/Codeine Phosphate (Tylenol #3) 1 tab PO Q4H PRN PRN Reason: Pain 4-6 Last Admin: 04/22/17 17:15 Dose: 1 tab Dextrose/Water (Dextrose 50%) 25 gm SLOW IVP PRN PRN PRN Reason: Hypoglycemia Docusate Sodium (Colace) 100 mg PO DAILY [facility] Last Admin: 04/22/17 08:39 Dose: 100 mg Enoxaparin Sodium (Lovenox) 30 mg SC 0900 [facility] Last Admin: 04/22/17 08:40 Dose: 30 mg Ferrous Sulfate (Feosol) 325 mg PO BID-[facility] Last Admin: 04/22/17 17:15 Dose: 325 mg Glipizide (Glucotrol) 5 mg PO DAILY-AC [facility] Last Admin: 04/22/17 08:39 Dose: 5 mg Glucagon (Glucagon) 1 mg IM PRN PRN PRN Reason: Hypoglycemia Dextrose/Water (D5w) 1,000 mls @ 0 mls/hr IV .Q0M PRN; As Directed PRN Reason: Hypoglycemia Insulin Human Regular (Humulin R) 0 units SC .MILD SLIDING SCALE PRN PRN Reason: Mild Correctional Scale Last Admin: 04/21/17 16:29 Dose: 4 unit Insulin Human Regular (Humulin R) 0 units SC .BEDTIME SLIDING SC PRN PRN Reason: Bedtime Correctional Scale Nystatin (Mycostatin Powder) 0 gm TOP BID [facility] Last Admin: 04/22/17 20:26 Dose: 1 applic Ondansetron HCl (Zofran) 4 mg IVP Q6H PRN PRN Reason: Nausea/Vomiting Last Admin: 04/21/17 20:13 Dose: 4 mg Ondansetron HCl (Zofran Odt) 4 mg SL Q6H PRN PRN Reason: Nausea/Vomiting Pantoprazole Sodium (Protonix) 40 mg PO DAILY [facility] Last Admin: 04/22/17 08:41 Dose: 40 mg Pioglitazone HCl (Actos) 15 mg PO DAILY [facility] Last Admin: 04/22/17 08:41 Dose: 15 mg Risperidone (Risperidone) 0.5 mg PO HS [facility] Last Admin: 04/22/17 20:27 Dose: 0.5 mg Simvastatin (Zocor) 5 mg PO QPM-WM [facility] Last Admin: 04/22/17 17:16 Dose: 5 mg Sodium Chloride (Flush - Normal Saline) 10 ml IVF Q12HR [facility] Last Admin: 04/22/17 20:28 Dose: 10 ml Sodium Chloride (Flush - Normal Saline) 10 ml IVF PRN PRN PRN Reason: Saline Flush Tizanidine HCl (Zanaflex) 4 mg PO QID PRN PRN Reason: Muscle Spasm Last Admin: 04/21/17 21:06 Dose: 4 mg Tramadol HCl (Ultram) 50 mg PO QID PRN PRN Reason: Pain 4-6 Last Admin: 04/21/17 08:54 Dose: 50 mg
[2017-04-22] MEDS: traMADol HCl 50 MG TAB PO PRN (22:42)
[2017-04-23] MEDS: Acetaminophen/Codeine 30-300mg Tablet PO PRN ×3 (02:00→08:59)
[2017-04-23 05:35] LABS: Anion Gap 9 mmol/L (10-20); BUN (Urea Nitrogen) 17 mg/dL (9.8-20.1); Calc. Creatinine Clearance 80 mL/min (70-130); Calcium 8.5 mg/dL (7.8-10.44); Carbon Dioxide 28 mmol/L (23-31); Chloride 105 mmol/L (98-107); Estimated GFR-MDRD 62; Glucose 210 mg/dL (80-115); Potassium 4.8 mmol/L (3.5-5.1); Sodium 137 mmol/L (136-145)
[2017-04-23 06:04] LABS: Band 2 % (5-11); Eosinophils 2 % (0-10); Hemoglobin 9.3 g/dL (12.0-16.0); Lymphocytes 16 % (21-51); MDiff Complete? YES; Mean Corpuscular HGB CONC 32.6 g/dL (32.0-36.0); Mean Corpuscular Hemoglobin 29.3 pg (27.0-31.0); Mean Corpuscular Volume 89.8 fl (81.0-99.0); Mean Platelet Volume 7.4 fL (7.4-10.4); Metamyelocyte 2 % (0-0); Monocytes 10 % (0-10); Neutrophil 67 % (42-75); Nucleated RBC 1 % (0); PLT Morphology Comment Appears Adequate; Platelet Count 254 thou/uL (130-400); RBC Distribution Width 14.8 % (11.5-14.5); RBC Morphology Normal; Reactive Lymphocytes 1 % (0-10); Red Blood Cell (RBC) Count 3.17 mill/uL (4.20-5.40); White Blood Cell (WBC) Count 6.3 thou/uL (4.8-10.8)
[2017-04-23] MEDS: Insulin Regular 300 UNITS/3 ML VIAL SC PRN (06:12)
[2017-04-23 08:14] VITALS: BP 145/67; TEMP 98.9
[2017-04-23] MEDS: Enoxaparin Sodium 30 MG/0.3 ML SYRINGE SC SCH (08:59)
[2017-04-23] MEDS: Nystatin Powder 15 GM BOT TOP SCH (09:00)
[2017-04-23] MEDS: glipiZIDE 5 MG TAB PO SCH (09:00)
[2017-04-23] MEDS: Docusate 100 MG CAP PO SCH (09:00)
[2017-04-23] MEDS: Pioglitazone HCl 15 MG TAB PO SCH (09:00)
[2017-04-23] MEDS: Ferrous Sulfate 325 MG TAB PO SCH (09:00)
[2017-04-23] MEDS: traMADol HCl 50 MG TAB PO PRN (11:18)
--- NOTE | 2017-04-23 22:46 | DIS ---
DISCHARGE DIAGNOSES: 1. Acute kidney injury on chronic kidney disease stage 3, secondary to Lasix/lisinopril and hydrochl orothiazide. 2. Dizziness. 3. Hyponatremia secondary to diuretics. 4. Type 2 diabetes. 5. Morbid obesity. HOSPITAL COURSE: While patient was in hospital, the patient's medications were held while here. [place] bray's electrolytes were monitored, which had improved after holding his home medications. After parminder luating his medications, it was felt that the Lasix was not require daily. Therefore, we felt at thi s point that we can hold his medications and he can use as needed for swelling. He had been hemodyna mically stable. He has significantly improved overall without any further intervention is required. Because the patient was doing significantly better we will comfortable discharging the patient home. Physical therapy also saw patient, who recommended home health which order was placed with case man agement to help facilitate this process. I instructed the patient to follow up with his primary care physician in 1 week in order to continue to follow up with his medications as well as his electrolyt es. He states that he would. Lasix as stated was switched from daily 2 p.r.n. as needed for swellin g if patient does develop at any time. All questions were answered prior to discharge. DISPOSITION: Home. DISCHARGE CONDITION: Much improved when he first came in. DISCHARGE ACTIVITY: As tolerated. DISCHARGE DIET: A 2 gram sodium, heart healthy diet. DISCHARGE MEDICATIONS: Please see home medication list. FOLLOWUP APPOINTMENTS: The patient will follow with primary care physician in 1 week. DISCHARGE PLAN: Discharge today was greater than 30 minutes.
--- NOTE | 2017-04-24 19:03 | EKG ---
Test Reason : DIZZINESS Blood Pressure : / mmHG Vent. Rate : 067 BPM Atrial Rate : 067 BPM P-R Int : 140 ms QRS Dur : 076 ms QT Int : 392 ms P-R-T Axes : 049 005 012 degrees QTc Int : 414 ms Normal sinus rhythm Inferior infarct , age undetermined Abnormal ECG Confirmed by ARLINE CRUZ, LIZA ([id number]), photographic editor NEPTALI WALTON ([id number]) on 04/24/2017 7:02:27 PM Referred By: Confirmed By:LIZA NUNN MD
== END 2017-04-23 12:34 | disposition home health service (06) | DRG 683 ==
LOC: ERS 17:44 → ONC 22:25
PROVIDERS: ADMIT Internal Medicine; ATTEND Internal Medicine
DX: N17.9 Acute kidney failure, unspecified (principal); Z68.41 Body mass index [BMI] 40.0-44.9, adult; E87.1 Hypo-osmolality and hyponatremia; E11.22 Type 2 diabetes mellitus with diabetic chronic kidney disease; E86.0 Dehydration; E66.01 Morbid (severe) obesity due to excess calories; F20.9 Schizophrenia, unspecified; I12.9 Hypertensive chronic kidney disease with stage 1 through stage 4 chronic kidney disease, or unspecified chronic kidney disease; N18.3 Chronic kidney disease, stage 3 (moderate); T50.1X5A Adverse effect of loop [high-ceiling] diuretics, initial encounter; T46.4X5A Adverse effect of angiotensin-converting-enzyme inhibitors, initial encounter; T50.2X5A Adverse effect of carbonic-anhydrase inhibitors, benzothiadiazides and other diuretics, initial encounter; Z79.899 Other long term (current) drug therapy
CPT/HCPCS: 36415; 36416; 70450; 80048; 80053; 83735; 84100; 84443; 85025; 85652; 86140; 93005; 96365; 96366; 96375; A4216; G8978-GP-CK; G8979-GP-CI; J1200; J1650; J1815; J2405; J2550

== ENCOUNTER 2017-05-24 18:30 | Emergency (ER) | payer MEDICARE ==
--- NOTE | 2017-05-24 19:28 | RAD ---
FRONTAL VIEW CHEST: INDICATIONS: Dyspnea. COMPARISON: 11/06/2016 FINDINGS: The lungs are clear. The cardiac silhouette is prominent in size and stable appearing. There is vas cular calcification and osseous degenerative change. IMPRESSION: Stable chest. POS: HIRA
[2017-05-24 19:34] LABS: #Basophils 0.1 thou/uL (0.0-0.2); #Lymphocytes 0.8 thou/uL (1.20-3.40); #Monocytes 0.3 thou/uL (0.11-0.59); #Neutrophils 8.9 thou/uL (1.40-6.50); %Basophils 0.9 % (0.0-1.0); %Eosinophils 0.2 % (0.0-10.0); %Lymphocytes 7.5 % (21.0-51.0); %Monocytes 3.1 % (0.0-10.0); %Neutrophils 88.4 % (42.0-75.0); Hemoglobin 12.8 g/dL (12.0-16.0); Mean Corpuscular HGB CONC 31.2 g/dL (32.0-36.0); Mean Corpuscular Hemoglobin 29.6 pg (27.0-31.0); Mean Corpuscular Volume 94.8 fl (81.0-99.0); Mean Platelet Volume 7.1 fL (7.4-10.4); Platelet Count 282 thou/uL (130-400); RBC Distribution Width 14.3 % (11.5-14.5); Red Blood Cell (RBC) Count 4.33 mill/uL (4.20-5.40); White Blood Cell (WBC) Count 10.1 thou/uL (4.8-10.8)
[2017-05-24 19:53] LABS: ALT (SGPT) 13 U/L (8-55); AST (SGOT) 13 U/L (5-34); Albumin 4.8 g/dL (3.4-4.8); Alkaline Phosphatase 79 U/L (40-150); Anion Gap 14 mmol/L (10-20); BUN (Urea Nitrogen) 42 mg/dL (9.8-20.1); Bilirubin, Total 0.3 mg/dL (0.2-1.2); CK (CPK) 75 U/L (29-168); Calc. Creatinine Clearance 0 mL/min (70-130); Calcium 10.9 mg/dL (7.8-10.44); Carbon Dioxide 25 mmol/L (23-31); Chloride 94 mmol/L (98-107); Estimated GFR-MDRD 44; Globulin 3.6 g/dL (2.4-3.5); Glucose 167 mg/dL (80-115); Potassium 4.9 mmol/L (3.5-5.1); Protein, Total 8.4 g/dL (6.0-8.3); Sodium 128 mmol/L (136-145)
[2017-05-24 19:56] LABS: CKMB 2.1 ng/mL (0-6.6); Troponin I Less than 0.010 ng/mL (< 0.028)
[2017-05-24] MEDS ORDERED: diphenhydrAMINE 50 MG/ML VIAL ONE (20:35)
[2017-05-24] MEDS ORDERED: Ondansetron ODT 4 MG TAB ONE (20:35)
[2017-05-24] MEDS ORDERED: hydrALAZINE 20 MG/ML VIAL ONE (20:35)
[2017-05-24] MEDS ORDERED: Metoclopramide HCl 10 MG/2 ML VIAL ONE (20:43)
--- NOTE | 2017-07-06 12:46 | EKG ---
Test Reason : Blood Pressure : / mmHG Vent. Rate : 069 BPM Atrial Rate : 069 BPM P-R Int : 136 ms QRS Dur : 066 ms QT Int : 374 ms P-R-T Axes : 025 004 014 degrees QTc Int : 400 ms Normal sinus rhythm Normal ECG Confirmed by LIZA NUNN MD ([id number]), newspaper photo editor NEPTALI WALTON ([id number]) on 07/06/2017 12:45:43 PM Referred By: Confirmed By:LIZA NUNN MD
== END 2017-05-24 23:08 | disposition home or self-care (01) ==
LOC: ERS 18:30
DX: E87.1 Hypo-osmolality and hyponatremia (principal); I10 Essential (primary) hypertension; N28.9 Disorder of kidney and ureter, unspecified; E11.9 Type 2 diabetes mellitus without complications; E66.9 Obesity, unspecified; F41.9 Anxiety disorder, unspecified; F32.9 Major depressive disorder, single episode, unspecified; F20.9 Schizophrenia, unspecified
CPT/HCPCS: 36415; 71045; 80053; 82553; 83690; 83880; 84484; 85025; 93005; 96361; 96374; 96375; J0360; J1200; J2765; Q0162

== ENCOUNTER 2018-05-12 10:48 | Outpatient (CLI) | payer MEDICARE ==
--- NOTE | 2018-05-13 11:58 | MMO ---
Bilateral MAMMO Bilat Screen [facility]. CLINICAL HISTORY: Patient is 67 years old and is seen for screening. The patient has no family history of breast cancer. The patient has no personal history of cancer. VIEWS: The views performed were: bilateral craniocaudal with tomosynthesis and bilateral mediolateral oblique with tomosynthesis. FILMS COMPARED: The present examination has been compared to prior imaging studies performed at [facility] on 03/27/1997, 02/25/2000, 03/29/2001, 04/26/2002, 07/24/2003, 05/13/2006, 06/16/2007, 09/06/2008, 11/21/2009, 11/24/2010, 12/16/2011, 03/19/2016 and 04/13/2017. MAMMOGRAM FINDINGS: There are scattered fibroglandular densities. There are vascular calcifications seen in both breasts. There are no suspicious masses, suspicious calcifications, or new areas of architectural distortion. IMPRESSION: A ROUTINE FOLLOW-UP MAMMOGRAM IN 1 YEAR IS RECOMMENDED. THE RESULTS OF THIS EXAM WERE SENT TO THE PATIENT. ACR BI-RADS Category 2 - Benign finding MAMMOGRAPHY NOTE: 1. A negative mammogram report should not delay a biopsy if a dominant of clinically suspicious mass is present. 2. Approximately 10% to 15% of breast cancers are not detected by mammography. 3. Adenosis and dense breasts may obscure an underlying neoplasm.
== END 2018-05-12 10:49 | disposition home or self-care (01) ==
LOC: BICMAMMO 10:48
PROVIDERS: ATTEND Nurse Practitioner Family
DX: Z12.31 Encounter for screening mammogram for malignant neoplasm of breast (principal)
CPT/HCPCS: 77063; 77067

== ENCOUNTER 2018-07-02 22:05 | Emergency (ER) | payer MEDICARE ==
[2018-07-02 23:39] LABS: #Eosinphils 0.2 thou/uL (0.0-0.7); #Lymphocytes 1.5 thou/uL (1.20-3.40); #Monocytes 0.6 thou/uL (0.11-0.59); #Neutrophils 5.8 thou/uL (1.40-6.50); %Eosinophils 2.4 % (0.0-10.0); %Lymphocytes 18.8 % (21.0-51.0); %Neutrophils 71.8 % (42.0-75.0); Hemoglobin 10.1 g/dL (12.0-16.0); Mean Corpuscular HGB CONC 32.2 g/dL (32.0-36.0); Mean Corpuscular Hemoglobin 28.8 pg (27.0-31.0); Mean Corpuscular Volume 89.6 fL (78.0-98.0); Mean Platelet Volume 7.9 fL (7.4-10.4); Platelet Count 243 thou/uL (130-400); RBC Distribution Width 13.2 % (11.5-14.5); White Blood Cell (WBC) Count 8.1 thou/uL (4.8-10.8)
--- NOTE | 2018-07-02 23:57 | RAD ---
EXAM: CHEST ONE VIEW HISTORY: Dyspnea COMPARISON: 05/24/2017 FINDINGS: Cardiac silhouette remains difficult limits of normal in size but is magnified by projection. The pul monary vasculature is within normal limits. Vascular calcifications are again seen in the thoracic aorta. The lungs are clear. The osseous structures are intact. IMPRESSION: Stable chest without evidence of an acute cardiopulmonary process.
[2018-07-02 23:59] LABS: ALT (SGPT) 13 U/L (8-55); AST (SGOT) 14 U/L (5-34); Alkaline Phosphatase 69 U/L (40-150); Anion Gap 17 mmol/L (10-20); BUN (Urea Nitrogen) 28 mg/dL (9.8-20.1); Bilirubin, Total 0.2 mg/dL (0.2-1.2); Calc. Creatinine Clearance 0 mL/min (70-130); Carbon Dioxide 27 mmol/L (23-31); Chloride 94 mmol/L (98-107); Estimated GFR-MDRD 31; Globulin 2.7 g/dL (2.4-3.5); Glucose 127 mg/dL (80-115); Potassium 4.7 mmol/L (3.5-5.1); Protein, Total 6.7 g/dL (6.0-8.3); Sodium 133 mmol/L (136-145)
== END 2018-07-03 01:50 | disposition home or self-care (01) ==
LOC: ERS 22:05
DX: N17.9 Acute kidney failure, unspecified (principal); E11.22 Type 2 diabetes mellitus with diabetic chronic kidney disease; I12.9 Hypertensive chronic kidney disease with stage 1 through stage 4 chronic kidney disease, or unspecified chronic kidney disease; N18.9 Chronic kidney disease, unspecified; Z79.84 Long term (current) use of oral hypoglycemic drugs; Z79.899 Other long term (current) drug therapy
CPT/HCPCS: 36415; 71045; 80053; 83880; 84484; 85025; 85379; 93005

== ENCOUNTER 2019-04-01 15:32 | Inpatient (IN) | payer MEDICARE ==
[2019-04-01] MEDS ORDERED: Morphine 4 MG/ML VIAL ONE ×2 (16:59→20:52)
--- NOTE | 2019-04-01 17:35 | RAD ---
Exam:Right knee 4 views HISTORY: Fall. Pain. Bruising. COMPARISON: None FINDINGS: Mild narrowing of the lateral compartment. No fracture or malalignment. No significant join t effusion. IMPRESSION: No fracture.
--- NOTE | 2019-04-01 17:36 | RAD ---
Exam:Left knee 4 views HISTORY: Fall. Pain. COMPARISON: None FINDINGS: Preserved joint spaces. No fractures or malalignment. No obvious joint effusion. IMPRESSION: No fracture.
--- NOTE | 2019-04-01 17:36 | RAD ---
Exam: Chest one view HISTORY:Weakness. Fall. Pain. Comparison: 07/02/2018 FINDINGS: Cardiac silhouette:Cardiomegaly Aorta: Atherosclerosis Pulmonary vessels: Normal Costophrenic angles: Clear LUNGS: No masses or consolidation. Pneumothorax: None Osseous abnormalities: None IMPRESSION: No acute cardiopulmonary process. Atherosclerosis
--- NOTE | 2019-04-01 17:37 | RAD ---
Exam:Left hand 3 views HISTORY: Fell 3 times as week. Pain. COMPARISON: None FINDINGS: Preserved joint spaces. No fracture, cortical irregularity or periosteal reaction. IMPRESSION: No fracture.
--- NOTE | 2019-04-01 17:38 | RAD ---
Exam:3 views right hand HISTORY: Patient fell 3 times last week. Pain. COMPARISON: None FINDINGS: Preserved joint spaces. No fracture, cortical irregularity or periosteal reaction. IMPRESSION: No fracture.
[2019-04-01 17:42] LABS: Hemoglobin 8.9 g/dL (12.0-16.0); Mean Corpuscular HGB CONC 32.7 g/dL (32.0-36.0); Mean Corpuscular Hemoglobin 28.7 pg (27.0-31.0); Mean Corpuscular Volume 87.7 fL (78.0-98.0); Mean Platelet Volume 6.9 fL (7.4-10.4); Platelet Count 367 thou/uL (130-400); RBC Distribution Width 14.7 % (11.5-14.5); Red Blood Cell (RBC) Count 3.11 mill/uL (4.20-5.40); White Blood Cell (WBC) Count 11.7 thou/uL (4.8-10.8)
[2019-04-01 17:53] LABS: Anisocytosis SLIGHT = 6-15 cells (100X) (0-5/hpf); Band 9 % (5-11); Eosinophils 3 % (0-10); Lymphocytes 16 % (21-51); MDiff Complete? YES; Monocytes 3 % (0-10); Neutrophil 68 % (42-75); Platelet Morphology Comment Appears Adequate; Polychromasia SLIGHT = 2-3 cells (100X) (0-2/hpf); Reactive Lymphocytes 1 % (0-10)
--- NOTE | 2019-04-01 18:11 | CT ---
Exam: Head CT without contrast HISTORY: Weakness. Patient fell 3 times last week. Pain. COMPARISON: 04/20/2017 FINDINGS: Hemorrhage: No intraparenchymal hemorrhage or extra-axial hematoma. Brain parenchyma: Cortical ordonez-white matter differentiation is preserved. No mass effect or midline shift. Basilar cisterns are patent. Ventricular system: Ventricles and sulci are patent and symmetric. Calvarium: No fracture. There is hyperostosis frontalis interna. Sinuses and mastoid air cells: Minimal opacification the inferior portion of the left mastoid air maribeth ls. IMPRESSION: No intracranial post traumatic sequelae. Minimal opacification of the inferior portion of the left ma stoid air cells.
--- NOTE | 2019-04-01 18:17 | CT ---
Exam: Thoracic spine CT without contrast HISTORY: Patient fell 3 times last week. Unable to walk due to pain. Weakness. COMPARISON: None FINDINGS: Visualized mediastinum does not demonstrate mass, lymphadenopathy or hematoma. Visualized heart is no t demonstrate significant pericardial fluid. The visualized aorta has a normal caliber. Minimal atherosclerosis Visualized lung parenchyma demonstrates dependent atelectatic changes. Trachea and central bronchi ar e patent. Visualized upper solid abdominal viscera is grossly unremarkable Thoracic spine vertebral body height is maintained. There is no thoracic spine fractures. There is no malalignment on the sagittal or coronal reformatted images. Osteophyte formation is noted at multiple levels. Limited evaluation the contents of the central spinal canal and neural foramina due to technique. The re is no evidence of high-grade central canal stenosis or high-grade neural foraminal narrowing. IMPRESSION: No evidence of a thoracic spine fracture. Transcribed Date/Time: 04/01/2019 6:26 PM
[2019-04-01 18:18] LABS: CKMB 4.1 ng/mL (0-6.6)
--- NOTE | 2019-04-01 18:20 | CT ---
Exam: Lumbar spine CT without contrast COMPARISON: 09/10/2012 HISTORY: Multiple falls. Pain. Weakness. Difficulty walking FINDINGS: Visualized aorta, alimentary canal and solid organs are grossly unremarkable. Limited evaluation of t he retroperitoneum and paraspinal soft tissues due to beam attenuation artifact from fusion hardware from L4 through S1. Bilateral transpedicular screws at L4, L5 and S1. No perihardware lucency. Disc prosthesis at L4-L5 a nd L5-S1. Lumbar spine vertebral body height is maintained. No fracture. Visualized sacrum demonstrates vacuum disc phenomenon in both SI joints. Visualized iliac wings are unremarkable Presacral fat is unremarkable No evidence of high-grade central canal stenosis throughout the lumbar spine. No evidence of signific ant neural foraminal narrowing. Evaluation of the central spinal canal and neural foramina is limited at the level of lumbar fusion. IMPRESSION: 1. No fracture. 2. Lumbar fusion changes from L4 through S1. Limited evaluation due to beam attenuation artifact. Transcribed Date/Time: 04/01/2019 6:28 PM
--- NOTE | 2019-04-01 18:22 | CT ---
CERVICAL SPINE CT 04/01/19 COMPARISON: None. HISTORY: Fall last week. TECHNIQUE: Axial CT imaging at 2.5 mm intervals through the cervical spine with coronal and sagittal reformatted imaging. FINDINGS: Incompletely partially opacified mastoid air cells noted on the left. The C1 ring is intact. There is moderate degenerative change at the atlantoaxial interspace. Craniocervical junction and cervicothor acic junction appear intact. The common carotid arteries and proximal internal carotid arteries demonstrate a medialized retrophar yngeal course. The imaged lung apices are unremarkable. There is atherosclerotic calcification of the aortic arch. Cervical spine vertebral body height and alignment appears within normal limits. No anterolisthesis o r retrolisthesis. There is multilevel upper cervical spine facet hypertrophy, left greater than right . No worrisome lytic or blastic bone lesion. No acute cervical spine fracture or dislocation. IMPRESSION: No cervical spine acute fracture or dislocation. Multilevel cervical spine facet hypertrophy. POS: BRANDON
[2019-04-01 18:45] LABS: ALT (SGPT) 54 U/L (8-55); AST (SGOT) 76 U/L (5-34); Albumin 3.3 g/dL (3.4-4.8); Alkaline Phosphatase 79 U/L (40-110); Anion Gap 18 mmol/L (10-20); BUN (Urea Nitrogen) 23 mg/dL (9.8-20.1); Bilirubin, Total 0.2 mg/dL (0.2-1.2); CK (CPK) 2502 U/L (29-168); Calc. Creatinine Clearance 0 mL/min (70-130); Calcium 8.9 mg/dL (7.8-10.44); Carbon Dioxide 18 mmol/L (23-31); Chloride 98 mmol/L (98-107); Estimated GFR-MDRD 64; Globulin 3.1 g/dL (2.4-3.5); Glucose 62 mg/dL (80-115); Potassium 5.7 mmol/L (3.5-5.1); Protein, Total 6.4 g/dL (6.0-8.3); Sodium 128 mmol/L (136-145)
[2019-04-01] MEDS ORDERED: Adacel (T-DAP) 0.5 ML SYRINGE ONE (20:05)
[2019-04-01] MEDS ORDERED: Aspirin Chewable 81 MG TAB ONE (20:05)
[2019-04-01 21:31] LABS: Bacteria/HPF None Seen HPF (None Seen); Bilirubin Negative (Negative); Blood, Urine Trace (Negative); Clarity Clear (Clear); Glucose, Urine (Dipstick) Normal (Negative); Leukocyte Negative Leu/uL (Negative); Nitrite Negative (Negative); Protein, Urine (Dipstick) Negative (Neg-Trace); RBC/HPF None Seen HPF (0-3); Squamous Epithelial None Seen HPF (0-3); Urobilinogen Normal mg/dL (Less than 2); WBC/HPF 0-3 HPF (0-3)
[2019-04-01 21:46] LABS: Phosphorus 2.7 mg/dL (2.3-4.7)
[2019-04-01 21:57] LABS: Troponin I 0.035 ng/mL (< 0.028)
[2019-04-01] MEDS ORDERED: Insulin Regular 300 UNITS/3 ML VIAL SC PRN ×2 (22:02)
[2019-04-01] MEDS ORDERED: Dextrose 5% in Water 1,000 ML IV PRN (22:02)
[2019-04-01] MEDS ORDERED: Dextrose 50% Abboject 50 ML SYRINGE SLOW IVP PRN (22:02)
[2019-04-01] MEDS ORDERED: Senokot S 8.6-50 MG TAB PO PRN (22:05)
[2019-04-01] MEDS ORDERED: Nitroglycerin 0.4 MG TAB (25 Tab Bottle) PO PRN (22:09)
[2019-04-01] MEDS ORDERED: Dextrose 5 %-0.45 % NaCl 1,000 ML IV SCH (22:15)
[2019-04-01 22:17] LABS: Magnesium 1.5 mg/dL (1.6-2.6)
--- NOTE | 2019-04-01 22:57 | HP ---
PRIMARY CARE PHYSICIAN: [facility]. PRIMARY PAIN SPECIALIST: Dr. Mata. CHIEF COMPLAINT: Generalized weakness with recurrent falls. HISTORY OF PRESENT ILLNESS: The patient is a 68-year-old female with hypertension; diabetes mellitus, type 2; and morbid obesity, presented to the emergency room with above complaints. The patient is a poor historian. The daughter was present earlier. Most of the history was obtained from the daughter earlier. The patient currently lives at home with her family. She has a history of chronic pain and was followed by Dr. Mata. Dr. Mata is trying to wean off Tylenol No. 4 with the help of buprenorphine. Over the last 2 weeks, the patient has been progressively declining. Five days ago, the patient fell 4 times. Two episodes were in the morning and twice at night. The was able to help her get up after the first two episodes; however, was not help her much during the episodes of fall at night. She also complains of significant pain in the back. The pain is moderate to severe in intensity, worse with movement. She denies any relieving factor. She tried tizanidine without much help. No fever, chills, bladder or bowel incontinence or saddle anesthesia reported. She denies any chest pain, palpitations, double vision, blurring of vision, or facial asymmetry. The patient has also lost her appetite. PAST MEDICAL HISTORY: 1. Hypertension. 2. Diabetes mellitus, type 2. 3. Morbid obesity. 4. Chronic anemia. 5. Congenitally absent one kidney. 6. Anxiety. 7. Depression. 8. Schizophrenia. 9. The patient also has a history of inpatient psychiatry admission in 2004 at [facility]. PAST SURGICAL HISTORY: 1. Appendectomy. 2. Total hysterectomy. 3. Back surgery. ALLERGIES: NO KNOWN DRUG ALLERGIES. CURRENT HOME MEDICATIONS: The patient is unable to recall any of her medications. The ER nurse obtained a list from the daughter, which included: 1. Actos. 2. Metformin. 3. Tylenol No. 4. 4. Tizanidine. 5. Lovastatin. 6. Risperdal. SOCIAL HISTORY: The patient is a former smoker. Currently lives with her family. She is full code, makes her own decision with the help of her and daughter. The patient currently ambulates with the help of a wheelchair. FAMILY HISTORY: Negative for heart disease. REVIEW OF SYSTEMS: All other review of systems were reviewed and were found negative. PHYSICAL EXAMINATION: VITAL SIGNS: On ER arrival, temperature 97.7, respirations of 18, pulse rate of 67, blood pressure of 147/64, and O2 saturation 100% on room air. GENERAL: A 68-year-old female with generalized weakness. HEENT: Head, atraumatic and normocephalic. No oral lesion. Dry mucous membranes. NECK: No JVD. No carotid bruit. LUNGS: Showed diminished air entry at bilateral bases. No wheezing, rales, or rhonchi. HEART: S1, S2 present. Regular rate and rhythm. No rubs or gallops. ABDOMEN: Soft, nontender. Bowel sounds present. There was significant paraspinal muscle tenderness. No rebound or guarding. EXTREMITIES: There is trace to 1+ edema in bilateral lower extremities with questionable calf tenderness. PSYCHIATRIC: The patient is alert, awake, and oriented x3. SKIN: Warm and dry. There are superficial abrasions over bilateral knees, larger on the right with scab. NEUROLOGIC: Power was 4/5 to 5/5 in all extremities without any focal findings. Cranial nerves 2 through 12 are normal on examination. Sensation to touch was normal in bilateral upper and lower extremities. LYMPH NODES: No palpable lymph nodes in the neck. PERIPHERAL VASCULAR: Radial pulses palpable bilaterally. MUSCULOSKELETAL: No joint swelling tenderness. LABORATORY FINDINGS: CBC showed WBC 11.7 with hemoglobin 8.9, hematocrit 27.3, and platelets of 367. Chemistries showed sodium 128, potassium 5.7, chloride of 98, bicarb 18, BUN 23, and creatinine 0.8. CK was 2502, troponin of 0.049, albumin 3.3. Urinalysis is pending at this time. IMAGING STUDIES: EKG by my review showed sinus rhythm. CT scan of the brain by my review was negative for acute findings. X-ray of the hand and knee was negative. Chest x-ray by my review was negative for acute findings. Cervical spine CT, lumbar spine CT, and thoracic spine CT were negative. IMPRESSION: 1. Generalized weakness with recurrent falls. 2. Rhabdomyolysis, secondary to recurrent falls. 3. Dehydration with hyponatremia and hyperkalemia. 4. Type 2 myocardial infarction. 5. Chronic anemia. 6. Leukocytosis, rule out urinary tract infection. 7. Hypertension. 8. Hyperlipidemia. 9. Diabetes mellitus, type 2. 10. Morbid obesity. 11. Chronic pain syndrome. 12. Anxiety. 13. Schizophrenia. 14. Metabolic acidosis. 15. Hypoglycemia with blood sugar of 62. PLANS: The patient will be monitored on the telemetry unit. We will trend troponins. We will start her on IV hydration. Check cortisol level in a.m. Repeat CK. Consult Physical Therapy and Occupational Therapy. Pain control. Insulin sliding scale. Verify home medications and resume accordingly. Inpatient rehab versus [facility] evaluation. The patient and the family understand the above plan of care. Job ID: [id number]
[2019-04-01] MEDS: Ondansetron PF 4 MG/2 ML Vial IVP PRN (23:26)
[2019-04-02] MEDS ORDERED: Dextrose 5 %-0.45 % NaCl 1,000 ML IV SCH (00:42)
[2019-04-02] MEDS ORDERED: Magnesium 2 GM/50 ML 2 GM in Premix Bag 1 BAG IVPB SCH (00:45)
[2019-04-02] MEDS ORDERED: NIFEdipine XL 30 MG TAB PO SCH (00:45)
[2019-04-02] MEDS: Calcium Carbonate 500 MG ChewTAB PO PRN ×4 (00:55→17:12)
[2019-04-02] MEDS: Acetaminophen/Codeine 30-300mg Tablet PO PRN ×2 (00:56→05:56)
[2019-04-02] MEDS: Acetaminophen 325 MG TAB PO PRN ×2 (00:57→20:39)
[2019-04-02] MEDS: hydrALAZINE 20 MG/ML VIAL SLOW IVP PRN ×4 (01:55→23:47)
[2019-04-02] MEDS: Cyclobenzaprine 10 MG TAB PO PRN ×2 (01:56→20:40)
[2019-04-02] MEDS: traMADol HCl 50 MG TAB PO PRN ×4 (01:56→23:47)
[2019-04-02 03:13] LABS: Troponin I 0.106 ng/mL (< 0.028)
[2019-04-02 03:17] LABS: Chloride 97 mmol/L (98-107); Potassium 5.1 mmol/L (3.5-5.1); Sodium 132 mmol/L (136-145)
[2019-04-02 03:20] LABS: Calcium 8.9 mg/dL (7.8-10.44); Glucose 158 mg/dL (80-115)
[2019-04-02 03:21] LABS: Carbon Dioxide 18 mmol/L (23-31)
[2019-04-02 03:23] LABS: Calc. Creatinine Clearance 71 mL/min (70-130); Estimated GFR-MDRD 61
[2019-04-02 03:24] LABS: BUN (Urea Nitrogen) 16 mg/dL (9.8-20.1)
[2019-04-02 03:44] LABS: Anion Gap 22 mmol/L (10-20)
[2019-04-02] MEDS: Ondansetron PF 4 MG/2 ML Vial IVP PRN ×3 (05:55→23:48)
[2019-04-02] MEDS: NIFEdipine XL 30 MG TAB PO SCH (08:34)
[2019-04-02] MEDS: Folic Acid 1 MG TAB PO SCH (08:35)
[2019-04-02] MEDS ORDERED: Nitroglycerin 0.4 MG TAB (25 Tab Bottle) SL PRN (08:40)
[2019-04-02] MEDS ORDERED: Morphine 2 MG/ML SYRINGE SLOW IVP PRN (08:40)
[2019-04-02 08:43] LABS: Anion Gap 22 mmol/L (10-20); BUN (Urea Nitrogen) 15 mg/dL (9.8-20.1); Calc. Creatinine Clearance 65 mL/min (70-130); Calcium 9.7 mg/dL (7.8-10.44); Carbon Dioxide 18 mmol/L (23-31); Chloride 95 mmol/L (98-107); Estimated GFR-MDRD 55; Glucose 274 mg/dL (80-115); Potassium 4.5 mmol/L (3.5-5.1); Sodium 130 mmol/L (136-145)
[2019-04-02] MEDS ORDERED: Insulin Regular 300 UNITS/3 ML VIAL SC PRN (08:53)
[2019-04-02] MEDS ORDERED: Metoprolol Tartrate 25 MG TAB PO SCH (09:00)
[2019-04-02] MEDS ORDERED: FLU VACC TS2019-20(65YR UP)/PF 180 MCG/0.5 ML SYRINGE IM ONE (09:00)
[2019-04-02] MEDS ORDERED: Famotidine 20 MG TAB PO SCH (09:00)
[2019-04-02] MEDS ORDERED: Prevnar 13-Val Conj/PF 0.5 ML SYRINGE IM ONE (09:00)
[2019-04-02] MEDS ORDERED: Aspirin 325 MG TAB PO SCH (09:00)
[2019-04-02] MEDS ORDERED: Enoxaparin Sodium 40 MG/0.4 ML SYRINGE SC SCH (09:00)
[2019-04-02 09:02] LABS: Troponin I 0.104 ng/mL (< 0.028)
[2019-04-02] MEDS: Sodium Chloride 0.9% 1,000 ML IV SCH ×3 (09:22→23:46)
[2019-04-02] MEDS ORDERED: Bacitracin 1 PK TOP SCH (09:30)
[2019-04-02 10:53] LABS: Band 4 % (5-11); Eosinophils 1 % (0-10); Hemoglobin 9.5 g/dL (12.0-16.0); Lymphocytes 12 % (21-51); MDiff Complete? YES; Mean Corpuscular HGB CONC 33.6 g/dL (32.0-36.0); Mean Corpuscular Hemoglobin 28.9 pg (27.0-31.0); Mean Corpuscular Volume 86.2 fL (78.0-98.0); Mean Platelet Volume 6.5 fL (7.4-10.4); Monocytes 4 % (0-10); Neutrophil 79 % (42-75); Platelet Count 493 thou/uL (130-400); RBC Distribution Width 14.8 % (11.5-14.5); Red Blood Cell (RBC) Count 3.29 mill/uL (4.20-5.40); White Blood Cell (WBC) Count 16.6 thou/uL (4.8-10.8)
--- NOTE | 2019-04-02 12:44 | ULT ---
EXAM: Bilateral lower extremity venous ultrasound HISTORY: Bilateral lower extremity pain and edema COMPARISON: None TECHNIQUE: Multiplanar grayscale and color Doppler images were obtained in a bilateral lower extremit y venous ultrasound. Spectral analysis of the Doppler waveforms were performed. FINDINGS: There appears to be nonocclusive thrombus in the right distal superficial femoral vein. The rest of the right leg is unremarkable. The left common femoral vein, profunda femoral vein, superficial femoral vein, and popliteal vein are normal in appearance without visible thrombus. The bilateral posterior tibial veins and greater saphenous veins are patent without evidence of throm bus. IMPRESSION: Nonocclusive thrombus in the right distal superficial femoral vein
[2019-04-02] MEDS ORDERED: Heparin 10,000 UNITS/ 10 ML VIAL SLOW IVP SCH (15:15)
[2019-04-02 15:37] LABS: Hemoglobin 9.5 g/dL (12.0-16.0); Platelet Count 572 thou/uL (130-400)
[2019-04-02] MEDS ORDERED: Heparin 25,000 units/D5W 500 ML IVPB SCH (15:45)
--- NOTE | 2019-04-02 16:03 | PDOC.HOSPP ---
- Subjective Encounter Date: 04/02/19 Encounter Time: 09:00 Subjective: No overnight events. This morning, feels about the same and complains of substernal burning sensation and occasional low volume vomiting. Has no other complaints. Denies substernal pressure associated with activity, pleuritic pain , should or jaw pain. - Objective Vital Signs & Weight: Vital Signs (12 hours) Temp Pulse Pulse Resp BP BP BP 04/02/19 13:29 122 H 151/68 H 04/02/19 11:13 99 F 120 H 16 151/63 H 04/02/19 07:33 99.2 F 130 H 18 146/61 H 04/02/19 05:55 99.8 F H 119 H 16 180/78 H 180/79 H 04/02/19 04:15 99.2 F 16 L 16 178/75 H Pulse Ox 04/02/19 13:29 04/02/19 11:13 97 04/02/19 07:33 99 04/02/19 05:55 99 04/02/19 04:15 97 Weight Weight 167 lb 3.2 oz I&O: 04/01/19 04/02/19 04/03/19 06:59 06:59 06:59 Intake Total 1080 Output Total 1000 Balance 80 Result Diagrams: 04/02/19 15:27 04/02/19 08:17 Additional Labs: Accuchecks 04/02/19 04/02/19 04/02/19 11:18 04:22 00:07 POC Glucose 249 H 250 H 107 Hospitalist ROS - Review of Systems Constitutional: denies: fever, chills, sweats, weakness, malaise, other Respiratory: denies: cough, dry, shortness of breath, hemoptysis, SOB with excertion, pleuritic pain, sputum, wheezing, other Cardiovascular: denies: chest pain, palpitations, orthopnea, paroxysmal noc. dyspnea, edema, light headedness, other Gastrointestinal: reports: nausea, vomiting. denies: abdominal pain, diarrhea, constipation, melena, hematochezia Genitourinary: denies: dysuria, frequency, incontinence, hematuria, retention, other Neurological: reports: weakness. denies: numbness, incoordination, change in speech - Medication Medications: Active Medications Generic Name Dose Route Start Last Admin Trade Name Freq PRN Reason Stop Dose Admin Acetaminophen 650 mg 04/01/19 22:05 04/02/19 00:57 Tylenol PO 650 mg Q4H PRN Administration Headache/Fever/Mild Pain (1-3) Aspirin 325 mg 04/02/19 09:00 04/02/19 09:23 Aspirin PO 325 mg DAILY DIMA Administration Calcium Carbonate 1,000 mg 04/01/19 22:05 04/02/19 14:12 Tums PO 1,000 mg Q4H PRN Administration Heartburn or Indigestion Cyclobenzaprine HCl 5 mg 04/01/19 22:08 04/02/19 01:56 Flexeril PO 04/02/19 22:09 5 mg TID PRN Administration Muscle Spasm Folic Acid 1 mg 04/02/19 09:00 04/02/19 08:35 Folvite PO 1 mg DAILY DIMA Administration Hydralazine HCl 10 mg 04/02/19 00:41 04/02/19 05:55 Apresoline SLOW IVP 10 mg Q4H PRN Administration SBP Greater Than 180 Sodium Chloride 1,000 mls @ 100 mls/hr 04/02/19 09:00 04/02/19 09:22 Normal Saline 0.9% IV 1,000 mls .Q10H DIMA Administration Insulin Human Regular 0 units 04/02/19 08:53 04/02/19 11:19 Humulin R SC 3 unit .MILD SLIDING SCALE PRN Administration Mild Correctional Scale Metoprolol Tartrate 12.5 mg 04/02/19 09:00 04/02/19 09:23 Lopressor PO 12.5 mg BID DIMA Administration Nifedipine 30 mg 04/02/19 09:00 04/02/19 08:34 Procardia Xl PO 30 mg DAILY DIMA Administration Ondansetron HCl 4 mg 04/01/19 22:05 04/02/19 11:20 Zofran IVP 4 mg Q6H PRN Administration Nausea/Vomiting Pantoprazole Sodium 40 mg 04/02/19 09:00 04/02/19 08:35 Protonix PO 40 mg DAILY DIMA Administration Sodium Chloride 10 ml 04/01/19 22:05 04/02/19 08:35 Flush - Normal Saline IVF 10 ml PRN PRN Administration Saline Flush Tramadol HCl 50 mg 04/02/19 00:45 04/02/19 08:32 Ultram PO 50 mg QID PRN Administration Pain - Exam General Appearance: awake alert General - other findings: in mild distress due to substernal burning Eye: anicteric sclera ENT: normocephalic atraumatic Neck: no JVD Heart: no murmur, no gallops, no rubs Heart - other findings: regular rhythm, tachycardic Respiratory: no wheezes, no rales, no ronchi Respiratory - other findings: diffusely reduced breath sounds likely due to body habitus Gastrointestinal: soft, non-tender, non-distended, normal bowel sounds Extremities: no edema Neurological: cranial nerve grossly intact Psychiatric: normal affect, normal behavior, A&O x 3 Hosp A/P - Plan #weakness -infectious workup pending -no focal neurologic symtpoms -may be due to hypoglycemia and reduced oral intake, orthostatic hypotension #Type 2 NSTEMI -trop 0.1, initially uptrending but now stable -HR in low 100s -HD stable -EKG showing no signs of ischemia -echo showing grade 1/3 diastolic dysfuntion; no regional wall motion abnormality #Right LE DVT -on exam, there was questionable tenderness; duplex showed nonocclusive DVT R femoral vein -discussed options with patient and mutually decided to anticoagulate; no contraindications -no signs of right heart strain on EKG though finding sinus tachycardia present -well score 6; however treatment for PE and DVT same; no indication for CTPE; will continue to monitor in case decompensates and requires intervention #T2DM -restarted home metformin #HTN -poorly controlled; will start remaining home antiHTN medications gradually Plan: -started heparin drip; could not obtain peripheral access; will obtain midline otherwise will have to treat subcutaneously -continue NS IVF 100cc/hr -restarted home lisinopril/hctz; started metoprolol tartrate 25mg bid; continue remaining antihtn -orthostats in AM code: full code GI : pantoprazole DVT: treatmetn with heparin drip
[2019-04-02] MEDS: Heparin 25,000 units/D5W 500 ML IVPB STA ×2 (16:34→16:35)
[2019-04-02] MEDS: Ondansetron ODT 4 MG TAB PO PRN (17:13)
[2019-04-02] MEDS ORDERED: (Acetaminophen With Codeine [Tylenol With Codeine #4] 1 TABLET) PO PRN (17:50)
[2019-04-02] MEDS ORDERED: Furosemide 20 MG TAB PO PRN (17:50)
[2019-04-02] MEDS ORDERED: hydrALAZINE 25 MG TAB PO SCH (18:00)
[2019-04-02] MEDS ORDERED: Lisinopril/Hydrochlorothiazide 20 mg/12.5 mg Tablet PO SCH (18:00)
[2019-04-02] MEDS: Metoprolol Tartrate 25 MG TAB PO SCH (20:39)
[2019-04-02] MEDS: tiZANidine HCl 4 MG TAB PO PRN (20:40)
[2019-04-02] MEDS: risperiDONE 1 MG TAB PO SCH (21:52)
[2019-04-02] MEDS ORDERED: risperiDONE 1 MG TAB PO SCH (22:00)
[2019-04-03] MEDS: tiZANidine HCl 4 MG TAB PO PRN ×2 (03:47→20:47)
[2019-04-03] MEDS: Acetaminophen 325 MG TAB PO PRN ×3 (03:48→20:47)
[2019-04-03 05:11] LABS: Anion Gap 14 mmol/L (10-20); BUN (Urea Nitrogen) 11 mg/dL (9.8-20.1); CK (CPK) 916 U/L (29-168); Calc. Creatinine Clearance 76 mL/min (70-130); Calcium 9.8 mg/dL (7.8-10.44); Carbon Dioxide 24 mmol/L (23-31); Cardiac Risk 2.3 (Less than 4.5); Chloride 98 mmol/L (98-107); Cholesterol 139 mg/dl (< 200 Desired); Estimated GFR-MDRD 67; Glucose 171 mg/dL (80-115); HDL Cholesterol 61 mg/dL (>60 Neg Risk); LDL Cholesterol, Calculated 62 mg/dL; Magnesium 1.6 mg/dL (1.6-2.6); Sodium 132 mmol/L (136-145); Triglycerides 80 mg/dL (Less than 150)
[2019-04-03 05:38] LABS: Hemoglobin 7.9 g/dL (12.0-16.0); Mean Corpuscular HGB CONC 32.5 g/dL (32.0-36.0); Mean Corpuscular Hemoglobin 28.3 pg (27.0-31.0); Mean Platelet Volume 6.4 fL (7.4-10.4); Platelet Count 518 thou/uL (130-400); White Blood Cell (WBC) Count 15.2 thou/uL (4.8-10.8)
[2019-04-03 06:07] LABS: Band 9 % (5-11); Lymphocytes 6 % (21-51); MDiff Complete? YES; Metamyelocyte 1 % (0-0); Monocytes 11 % (0-10); Neutrophil 73 % (42-75); Nucleated RBC 2 % (0); Platelet Morphology Comment Appears Increased
[2019-04-03] MEDS: traMADol HCl 50 MG TAB PO PRN ×3 (08:47→23:06)
[2019-04-03] MEDS: Bacitracin 1 PK TOP SCH (08:48)
[2019-04-03] MEDS: metFORMIN 500 MG TAB PO SCH ×2 (08:48→16:24)
[2019-04-03] MEDS: Ferrous Sulfate 325 MG TAB PO SCH ×2 (08:48→16:23)
[2019-04-03] MEDS: Metoprolol Tartrate 25 MG TAB PO SCH (08:49)
[2019-04-03] MEDS: NIFEdipine XL 30 MG TAB PO SCH (08:49)
[2019-04-03] MEDS: Folic Acid 1 MG TAB PO SCH (08:49)
[2019-04-03] MEDS: Aspirin 81 mg Enteric Coated Tablet PO SCH (08:49)
[2019-04-03] MEDS: Sodium Chloride 0.9% 1,000 ML IV SCH (08:53)
[2019-04-03] MEDS ORDERED: Lisinopril/Hydrochlorothiazide 20 mg/12.5 mg Tablet PO SCH ×2 (09:00)
[2019-04-03 10:48] LABS: PTT Greater than 250.0 SEC (22.9-36.1)
--- NOTE | 2019-04-03 15:36 | PDOC.HOSPP ---
- Subjective Encounter Date: 04/03/19 Encounter Time: 07:50 Subjective: no overnight events. This morning, feels better overall however per patient and daughter at bedside, worried about generalized weakness even though chronic. Per PT, will benefit from skilled PT. Pending placement - Objective Vital Signs & Weight: Vital Signs (12 hours) Temp Pulse Pulse Pulse Resp BP BP 04/03/19 13:24 96 95 193/80 H 199/86 H 04/03/19 10:57 97.8 F 76 18 04/03/19 06:53 98.2 F 82 18 04/03/19 03:35 98.8 F 92 14 BP Pulse Ox 04/03/19 13:24 04/03/19 10:57 138/63 96 04/03/19 06:53 188/82 H 98 04/03/19 03:35 142/65 H Weight Admit Weight 167 lb 3.2 oz Weight 165 lb 14.4 oz I&O: 04/02/19 04/03/19 04/04/19 06:59 06:59 06:59 Intake Total 1080 2910 Output Total 1000 1350 Balance 80 1560 Result Diagrams: 04/03/19 04:11 04/03/19 04:11 Additional Labs: Accuchecks 04/03/19 04/03/19 04/02/19 12:13 06:17 23:34 POC Glucose 211 H 202 H 203 H 04/02/19 04/02/19 17:25 15:51 POC Glucose 170 H 184 H Hospitalist ROS - Review of Systems Constitutional: denies: fever, chills, sweats, weakness, malaise, other Respiratory: denies: cough, dry, shortness of breath, hemoptysis, SOB with excertion, pleuritic pain, sputum, wheezing, other Cardiovascular: denies: chest pain, palpitations, orthopnea, paroxysmal noc. dyspnea, edema, light headedness, other Gastrointestinal: denies: nausea, vomiting, abdominal pain, diarrhea, constipation, melena, hematochezia, other Genitourinary: denies: dysuria, frequency, incontinence, hematuria, retention, other Neurological: reports: weakness. denies: numbness, incoordination, change in speech, confusion, seizures - Medication Medications: Active Medications Generic Name Dose Route Start Last Admin Trade Name Freq PRN Reason Stop Dose Admin Acetaminophen 650 mg 04/01/19 22:05 04/03/19 14:17 Tylenol PO 650 mg Q4H PRN Administration Headache/Fever/Mild Pain (1-3) Aspirin 81 mg 04/03/19 09:00 04/03/19 08:49 Ecotrin PO 81 mg DAILY DIMA Administration Bacitracin 1 pk 04/03/19 09:00 04/03/19 08:48 Bacitracin TOP 1 pk DAILY DIMA Administration Ferrous Sulfate 325 mg 04/03/19 08:00 04/03/19 08:48 Feosol PO 325 mg BID-WM DIMA Administration Folic Acid 1 mg 04/02/19 09:00 04/03/19 08:49 Folvite PO 1 mg DAILY DIMA Administration Lisinopril/HCTZ 1 tab 04/03/19 09:00 04/03/19 08:48 Prinizide 20-12.5 PO 1 tab DAILY DIMA Administration Heparin Sodium (Porcine) 0 units 04/02/19 15:15 04/02/19 16:10 Heparin 1,000 Units/Ml (10 Ml) SLOW IVP 6,064 unit ASDIR DIMA Administration Protocol Hydralazine HCl 10 mg 04/02/19 00:41 04/02/19 23:47 Apresoline SLOW IVP 10 mg Q4H PRN Administration SBP Greater Than 180 Sodium Chloride 1,000 mls @ 100 mls/hr 04/02/19 09:00 04/03/19 08:53 Normal Saline 0.9% IV 1,000 mls .Q10H DIMA Administration Metformin HCl 500 mg 04/03/19 08:00 04/03/19 08:48 Glucophage PO 500 mg BID-WM DIMA Administration Metoprolol Tartrate 25 mg 04/02/19 21:00 04/03/19 08:49 Lopressor PO 25 mg BID DIMA Administration Nifedipine 30 mg 04/02/19 09:00 04/03/19 08:49 Procardia Xl PO 30 mg DAILY DIMA Administration Ondansetron HCl 4 mg 04/01/19 22:05 04/02/19 17:13 Zofran Odt PO 4 mg Q6H PRN Administration Nausea/Vomiting Ondansetron HCl 4 mg 04/02/19 21:14 04/02/19 23:48 Zofran IVP 4 mg Q6H PRN Administration Nausea/Vomiting Pantoprazole Sodium 40 mg 04/03/19 09:00 04/03/19 08:48 Protonix PO 40 mg QAM DIMA Administration Sodium Chloride 10 ml 04/01/19 22:05 04/03/19 08:49 Flush - Normal Saline IVF 10 ml PRN PRN Administration Saline Flush Tizanidine HCl 4 mg 04/02/19 17:50 04/03/19 03:47 Zanaflex PO 4 mg QID PRN Administration Muscle Spasm Tramadol HCl 50 mg 04/02/19 00:45 04/03/19 08:47 Ultram PO 50 mg QID PRN Administration Pain - Exam General Appearance: NAD, awake alert General - other findings: morbidly obese Eye: PERRL Neck: no JVD Heart: no murmur, no gallops, no rubs Heart - other findings: regular rhythm, tachycardic Respiratory: no wheezes, no rales, no ronchi Respiratory - other findings: diffusely reduced breath sounds Gastrointestinal: soft, non-tender, non-distended, normal bowel sounds Extremities: no edema Neurological: cranial nerve grossly intact, no focal deficits Musculoskeletal: normal tone, normal strength, generalized weakness Psychiatric: normal behavior, A&O x 3, flat affect Hosp A/P - Plan #weakness #deconditioning -per patient and daughter, has been mostly lying in bed for weeks/months -per PT, will benefit from skilled PT; CM made aware and on the case #Type 2 NSTEMI -trop 0.1, initially uptrending but now stable -HR in low 100s -HD stable -EKG showing no signs of ischemia -echo showing grade 1/3 diastolic dysfuntion; no regional wall motion abnormality #Right LE DVT -transitioned from heparin to eliquis #T2DM -restarted home metformin #HTN -poorly controlled; will start remaining home antiHTN medications Plan: -changed from heparin to eliquis -changed from metoprolol to coreg; increased nifedipine to 60mg; changed hydralazine to 25mg PO tid with holding parameters. -continue NS IVF 100cc/hr code: full code GI : pantoprazole DVT: treatmetn with heparin drip
[2019-04-03] MEDS ORDERED: Sodium Chloride 0.9% 1,000 ML IV SCH (15:43)
[2019-04-03] MEDS: Carvedilol 25 MG TAB PO SCH (16:58)
[2019-04-03] MEDS ORDERED: hydrALAZINE 25 MG TAB PO SCH (17:00)
[2019-04-03] MEDS ORDERED: NIFEdipine XL 30 MG TAB PO SCH (17:00)
[2019-04-03] MEDS: Ondansetron PF 4 MG/2 ML Vial IVP PRN ×2 (17:37→23:06)
[2019-04-03] MEDS ORDERED: Chlorthalidone 25 MG TAB PO SCH (18:30)
[2019-04-03] MEDS ORDERED: Labetalol HCl 100 MG/20 ML VIAL SLOW IVP SCH (18:50)
[2019-04-03] MEDS: risperiDONE 1 MG TAB PO SCH (20:46)
[2019-04-03] MEDS: Apixaban 5 MG TAB PO SCH (20:46)
[2019-04-03] MEDS: hydrALAZINE 25 MG TAB PO SCH (20:46)
[2019-04-04] MEDS ORDERED: Promethazine HCl 25 MG in Sodium Chloride 0.9% 50 ML IVPB PRN (00:10)
[2019-04-04] MEDS ORDERED: Labetalol HCl 100 MG/20 ML VIAL SLOW IVP PRN (00:11)
[2019-04-04] MEDS: Acetaminophen 325 MG TAB PO PRN ×2 (01:50→21:20)
[2019-04-04] MEDS: tiZANidine HCl 4 MG TAB PO PRN ×2 (01:50→21:17)
[2019-04-04 04:50] LABS: Anion Gap 10 mmol/L (10-20); BUN (Urea Nitrogen) 11 mg/dL (9.8-20.1); Calc. Creatinine Clearance 78 mL/min (70-130); Calcium 9.2 mg/dL (7.8-10.44); Carbon Dioxide 26 mmol/L (23-31); Chloride 97 mmol/L (98-107); Estimated GFR-MDRD 69; Glucose 154 mg/dL (80-115); Magnesium 1.3 mg/dL (1.6-2.6); Sodium 129 mmol/L (136-145)
[2019-04-04] MEDS ORDERED: Magnesium 2 GM/50 ML 2 GM in Premix Bag 1 BAG IVPB SCH (07:30)
[2019-04-04] MEDS ORDERED: Furosemide 40 MG/4 ML VIAL SLOW IVP SCH (08:00)
[2019-04-04] MEDS: Ferrous Sulfate 325 MG TAB PO SCH ×2 (08:01→17:07)
[2019-04-04] MEDS: Chlorthalidone 25 MG TAB PO SCH (08:01)
[2019-04-04] MEDS: Aspirin 81 mg Enteric Coated Tablet PO SCH (08:01)
[2019-04-04] MEDS: Folic Acid 1 MG TAB PO SCH (08:02)
[2019-04-04] MEDS: Bacitracin 1 PK TOP SCH (08:02)
[2019-04-04] MEDS: Carvedilol 25 MG TAB PO SCH ×2 (08:02→17:07)
[2019-04-04] MEDS: Apixaban 5 MG TAB PO SCH ×2 (08:02→21:18)
[2019-04-04] MEDS: metFORMIN 500 MG TAB PO SCH ×2 (08:02→17:07)
[2019-04-04] MEDS: traMADol HCl 50 MG TAB PO PRN ×2 (08:06→21:17)
[2019-04-04] MEDS ORDERED: Lisinopril 20 MG TAB PO SCH ×2 (09:00→15:30)
[2019-04-04] MEDS ORDERED: NIFEdipine XL 60 MG TAB PO SCH (09:00)
[2019-04-04] MEDS ORDERED: NIFEdipine XL 90 MG TAB PO SCH (09:00)
[2019-04-04] MEDS: NIFEdipine XL 60 MG TAB PO SCH (09:14)
[2019-04-04] MEDS: Labetalol HCl 100 MG/20 ML VIAL SLOW IVP SCH ×4 (09:17→22:00)
[2019-04-04] MEDS: hydrALAZINE 25 MG TAB PO SCH ×3 (10:17→21:18)
[2019-04-04] MEDS: Morphine 2 MG/ML SYRINGE SLOW IVP PRN ×3 (11:33→19:53)
[2019-04-04] MEDS ORDERED: Lisinopril 10 MG TAB PO SCH (13:30)
[2019-04-04] MEDS: Ondansetron PF 4 MG/2 ML Vial IVP PRN (19:53)
[2019-04-04] MEDS: cloNIDine 0.1 MG TAB PO SCH (21:19)
[2019-04-04] MEDS: Lisinopril 20 MG TAB PO SCH (21:19)
[2019-04-04] MEDS: risperiDONE 1 MG TAB PO SCH (21:19)
[2019-04-04] MEDS: Promethazine 25 MG TAB PO PRN (21:20)
--- NOTE | 2019-04-04 21:24 | PDOC.HOSPP ---
- Subjective Encounter Date: 04/04/19 Encounter Time: 09:00 Subjective: no overnight events. This morning, feeling well and has no complaints. Grossly high bp with no symptoms of organ failure has been difficult to control. Will continue to manage hypertension and newly diagnosed DVT in anticipation of discharge to a skilled facility. - Objective Vital Signs & Weight: Vital Signs (12 hours) Temp Pulse Resp BP BP Pulse Ox 04/04/19 21:16 98.9 F 99 19 142/65 H 98 04/04/19 17:06 96 174/84 H 04/04/19 16:08 94 18 165/74 H 97 04/04/19 15:47 166/68 H 04/04/19 13:05 172/68 H 04/04/19 11:31 98.4 F 91 16 208/82 H 208/82 H 98 04/04/19 10:17 87 210/88 H Weight Admit Weight 167 lb 3.2 oz Weight 165 lb 14.4 oz I&O: 04/03/19 04/04/19 04/05/19 06:59 06:59 06:59 Intake Total 2910 2350 1010 Output Total 1350 2650 1850 Balance 1560 -300 -840 Result Diagrams: 04/03/19 04:11 04/04/19 04:20 Additional Labs: Accuchecks 04/04/19 04/04/19 04/04/19 17:10 11:03 05:52 POC Glucose 121 H 135 H 145 H 04/04/19 00:20 POC Glucose 158 H Hospitalist ROS - Review of Systems Constitutional: reports: weakness (chronic; per daughter at bedside has been mostly bedbound for a few months; has wheelchair and walker at home). denies: fever, chills, sweats, malaise, other Eyes: denies: vision change Respiratory: denies: cough, dry, shortness of breath, hemoptysis, SOB with excertion, pleuritic pain, sputum, wheezing, other Cardiovascular: denies: chest pain, palpitations, orthopnea, paroxysmal noc. dyspnea, edema, light headedness, other Gastrointestinal: denies: nausea, vomiting, abdominal pain, diarrhea, constipation, melena, hematochezia, other Genitourinary: denies: dysuria, frequency, incontinence, hematuria, retention, other Skin: denies: rash, lesions, jeremias, bruising, other Neurological: denies: weakness, numbness, incoordination, change in speech, confusion, seizures, other - Medication Medications: Active Medications Generic Name Dose Route Start Last Admin Trade Name Freq PRN Reason Stop Dose Admin Acetaminophen 650 mg 04/01/19 22:05 04/04/19 01:50 Tylenol PO 650 mg Q4H PRN Administration Headache/Fever/Mild Pain (1-3) Apixaban 10 mg 04/03/19 21:00 04/04/19 08:02 Eliquis PO 10 mg BID DIMA Administration Aspirin 81 mg 04/03/19 09:00 04/04/19 08:01 Ecotrin PO 81 mg DAILY DIMA Administration Bacitracin 1 pk 04/03/19 09:00 04/04/19 08:02 Bacitracin TOP 1 pk DAILY DIMA Administration Carvedilol 25 mg 04/03/19 17:00 04/04/19 17:07 Coreg PO 25 mg BID-WM DIMA Administration Chlorthalidone 25 mg 04/04/19 09:00 04/04/19 08:01 Hygroton PO 25 mg DAILY DIMA Administration Ferrous Sulfate 325 mg 04/03/19 08:00 04/04/19 17:07 Feosol PO 325 mg BID-WM DIMA Administration Folic Acid 1 mg 04/02/19 09:00 04/04/19 08:02 Folvite PO 1 mg DAILY DIMA Administration Hydralazine HCl 50 mg 04/04/19 15:00 04/04/19 15:47 Apresoline PO 50 mg TID DIMA Administration Promethazine HCl 25 mg/ Sodium 51 mls @ 204 mls/hr 04/04/19 00:10 04/04/19 01 :00 Chloride IVPB 51 mls Q8H PRN Administration Nausea Labetalol HCl 10 mg 04/04/19 08:00 04/04/19 17:06 Normodyne SLOW IVP 10 mg Q4H DIMA Administration Metformin HCl 500 mg 04/03/19 08:00 04/04/19 17:07 Glucophage PO 500 mg BID-WM DIMA Administration Morphine Sulfate 2 mg 04/04/19 08:40 04/04/19 19:53 Morphine SLOW IVP 2 mg Q4H PRN Administration BREAKTHRU PAIN Nifedipine 60 mg 04/04/19 09:00 04/04/19 09:14 Procardia Xl PO 60 mg DAILY DIMA Administration Ondansetron HCl 4 mg 04/01/19 22:05 04/02/19 17:13 Zofran Odt PO 4 mg Q6H PRN Administration Nausea/Vomiting Ondansetron HCl 4 mg 04/02/19 21:14 04/04/19 19:53 Zofran IVP 4 mg Q6H PRN Administration Nausea/Vomiting Pantoprazole Sodium 40 mg 04/03/19 09:00 04/04/19 08:02 Protonix PO 40 mg QAM DIMA Administration Risperidone 2 mg 04/03/19 21:00 04/03/19 20:46 Risperidone PO 2 mg HS DIMA Administration Sodium Chloride 10 ml 04/01/19 22:05 04/03/19 08:49 Flush - Normal Saline IVF 10 ml PRN PRN Administration Saline Flush Tizanidine HCl 4 mg 04/02/19 17:50 04/04/19 01:50 Zanaflex PO 4 mg QID PRN Administration Muscle Spasm Tramadol HCl 50 mg 04/02/19 00:45 04/04/19 08:06 Ultram PO 50 mg QID PRN Administration Pain - Exam General Appearance: NAD, awake alert Eye: PERRL Neck: negative: no JVD Heart: no murmur, no gallops, no rubs Heart - other findings: regular rhythm, tachycardic Respiratory: CTAB, no wheezes, no rales, no ronchi, normal chest expansion, no tachypnea, normal percussion Respiratory - other findings: diffusely reduced breath sounds Gastrointestinal: soft, non-tender, non-distended, normal bowel sounds, no palpable masses, no hepatomegaly, no splenomegaly, no bruit Extremities: no edema Neurological: cranial nerve grossly intact, no focal deficits. negative: speech deficit, vision deficit Psychiatric: normal affect, normal behavior, A&O x 3 Hosp A/P - Plan #HTN urgency -poorly controlled; will start remaining home antiHTN medications -further adjusted medications since patient persistently in hypertensive urgency despite previous measures #weakness #deconditioning -per patient and daughter, has been mostly lying in bed for weeks/months -per PT, will benefit from skilled PT; CM made aware and on the case #Type 2 NSTEMI -trop 0.1, initially uptrending but now stable -HR in low 100s -HD stable -EKG showing no signs of ischemia -echo showing grade 1/3 diastolic dysfuntion; no regional wall motion abnormality #Right LE DVT -on eliquis #T2DM -restarted home metformin Plan: -continue eliquis -will escalate management of hypertension -stop IVF since patient's vomiting resolved and PO tolerant code: full code GI : pantoprazole DVT: therapeutic eliquis
[2019-04-05] MEDS: Labetalol HCl 100 MG/20 ML VIAL SLOW IVP SCH ×7 (00:49→23:21)
[2019-04-05] MEDS: Ondansetron PF 4 MG/2 ML Vial IVP PRN (03:59)
[2019-04-05] MEDS: Morphine 2 MG/ML SYRINGE SLOW IVP PRN (04:00)
[2019-04-05 05:16] LABS: #Eosinphils 0.2 thou/uL (0.0-0.7); #Lymphocytes 1.9 thou/uL (1.20-3.40); #Monocytes 0.9 thou/uL (0.11-0.59); #Neutrophils 10.7 thou/uL (1.40-6.50); %Basophils 0.2 % (0.0-1.0); %Eosinophils 1.8 % (0.0-10.0); %Lymphocytes 13.8 % (21.0-51.0); %Monocytes 6.4 % (0.0-10.0); %Neutrophils 77.8 % (42.0-75.0); Hemoglobin 8.5 g/dL (12.0-16.0); Mean Corpuscular HGB CONC 33.3 g/dL (32.0-36.0); Mean Platelet Volume 6.3 fL (7.4-10.4); Platelet Count 551 thou/uL (130-400); RBC Distribution Width 14.8 % (11.5-14.5); Red Blood Cell (RBC) Count 2.93 mill/uL (4.20-5.40); White Blood Cell (WBC) Count 13.7 thou/uL (4.8-10.8)
[2019-04-05 05:31] LABS: Anion Gap 13 mmol/L (10-20); BUN (Urea Nitrogen) 18 mg/dL (9.8-20.1); Calc. Creatinine Clearance 55 mL/min (70-130); Calcium 9.3 mg/dL (7.8-10.44); Carbon Dioxide 27 mmol/L (23-31); Chloride 93 mmol/L (98-107); Estimated GFR-MDRD 46; Glucose 85 mg/dL (80-115); Magnesium 1.6 mg/dL (1.6-2.6); Potassium 3.8 mmol/L (3.5-5.1); Sodium 129 mmol/L (136-145)
[2019-04-05] MEDS: tiZANidine HCl 4 MG TAB PO PRN (09:59)
[2019-04-05] MEDS: traMADol HCl 50 MG TAB PO PRN ×3 (09:59→23:08)
[2019-04-05] MEDS: hydrALAZINE 25 MG TAB PO SCH ×3 (10:01→20:50)
[2019-04-05] MEDS: Ferrous Sulfate 325 MG TAB PO SCH ×2 (10:01→17:58)
[2019-04-05] MEDS: metFORMIN 500 MG TAB PO SCH ×2 (10:02→17:58)
[2019-04-05] MEDS: Aspirin 81 mg Enteric Coated Tablet PO SCH (10:02)
[2019-04-05] MEDS: NIFEdipine XL 60 MG TAB PO SCH (10:02)
[2019-04-05] MEDS: Carvedilol 25 MG TAB PO SCH ×2 (10:03→17:58)
[2019-04-05] MEDS: Chlorthalidone 25 MG TAB PO SCH (10:03)
[2019-04-05] MEDS: Apixaban 5 MG TAB PO SCH ×2 (10:03→20:42)
[2019-04-05] MEDS: Bacitracin 1 PK TOP SCH (10:04)
[2019-04-05] MEDS: Folic Acid 1 MG TAB PO SCH (10:04)
[2019-04-05] MEDS: cloNIDine 0.1 MG TAB PO SCH (17:26)
[2019-04-05] MEDS: Sodium Chloride 0.9% 1,000 ML IV SCH (20:41)
[2019-04-05] MEDS: risperiDONE 1 MG TAB PO SCH (20:42)
[2019-04-05] MEDS: Lisinopril 20 MG TAB PO SCH (20:42)
[2019-04-05] MEDS: Ondansetron ODT 4 MG TAB PO PRN (20:42)
--- NOTE | 2019-04-05 23:13 | PDOC.HOSPP ---
- Subjective Encounter Date: 04/05/19 Encounter Time: 08:00 Subjective: no overnight events. Blood pressure well controlled and has no complaints. Pending placement - Objective Vital Signs & Weight: Vital Signs (12 hours) Temp Pulse Resp BP BP Pulse Ox 04/05/19 20:50 115/52 L 04/05/19 20:49 84 115/52 L 04/05/19 20:42 115/52 L 04/05/19 17:31 98 131/61 04/05/19 17:26 153/70 H 04/05/19 16:00 97.6 F 75 16 138/77 04/05/19 15:00 98.4 F 86 135/62 04/05/19 13:12 95 04/05/19 12:00 97.2 F L 78 16 107/55 L 107/52 L Weight Admit Weight 167 lb 3.2 oz Weight 164 lb 14.4 oz I&O: 04/04/19 04/05/19 04/06/19 06:59 06:59 06:59 Intake Total 2350 1130 730 Output Total 2650 2650 300 Balance -300 -1520 430 Result Diagrams: 04/05/19 04:35 04/05/19 04:35 Additional Labs: Accuchecks 04/05/19 04/05/19 04/05/19 20:03 10:51 06:03 POC Glucose 210 H 164 H 101 04/04/19 23:44 POC Glucose 122 H Hospitalist ROS - Review of Systems Constitutional: denies: fever, chills, sweats, weakness, malaise, other Respiratory: denies: cough, dry, shortness of breath, hemoptysis, SOB with excertion, pleuritic pain, sputum, wheezing, other Cardiovascular: denies: chest pain, palpitations, orthopnea, paroxysmal noc. dyspnea, edema, light headedness, other Gastrointestinal: denies: nausea, vomiting, abdominal pain, diarrhea, constipation, melena, hematochezia, other Genitourinary: denies: dysuria, frequency, incontinence, hematuria, retention, other Neurological: reports: weakness. denies: numbness, incoordination, change in speech, confusion - Medication Medications: Active Medications Generic Name Dose Route Start Last Admin Trade Name Freq PRN Reason Stop Dose Admin Acetaminophen 650 mg 04/01/19 22:05 04/04/19 21:20 Tylenol PO 650 mg Q4H PRN Administration Headache/Fever/Mild Pain (1-3) Apixaban 10 mg 04/03/19 21:00 04/05/19 20:42 Eliquis PO 10 mg BID DIMA Administration Aspirin 81 mg 04/03/19 09:00 04/05/19 10:02 Ecotrin PO 81 mg DAILY DIMA Administration Bacitracin 1 pk 04/03/19 09:00 04/05/19 10:04 Bacitracin TOP 1 pk DAILY DIMA Administration Carvedilol 25 mg 04/03/19 17:00 04/05/19 17:58 Coreg PO 25 mg BID-WM DIMA Administration Chlorthalidone 25 mg 04/04/19 09:00 04/05/19 10:03 Hygroton PO 25 mg DAILY DIMA Administration Ferrous Sulfate 325 mg 04/03/19 08:00 04/05/19 17:58 Feosol PO 325 mg BID-WM DIMA Administration Folic Acid 1 mg 04/02/19 09:00 04/05/19 10:04 Folvite PO 1 mg DAILY DIMA Administration Hydralazine HCl 50 mg 04/05/19 21:00 04/05/19 20:50 Apresoline PO Not Given TID DIMA Promethazine HCl 25 mg/ Sodium 51 mls @ 204 mls/hr 04/04/19 00:10 04/04/19 01 :00 Chloride IVPB 51 mls Q8H PRN Administration Nausea Sodium Chloride 1,000 mls @ 70 mls/hr 04/05/19 17:15 04/05/19 20:41 Normal Saline 0.9% IV 1,000 mls .[id number] DIMA Administration Labetalol HCl 10 mg 04/04/19 08:00 04/05/19 20:49 Normodyne SLOW IVP Not Given Q4H DIMA Lisinopril 20 mg 04/04/19 21:00 04/05/19 20:42 Zestril PO 20 mg HS DIMA Administration Metformin HCl 500 mg 04/03/19 08:00 04/05/19 17:58 Glucophage PO 500 mg BID-WM DIMA Administration Morphine Sulfate 2 mg 04/04/19 08:40 04/05/19 04:00 Morphine SLOW IVP 2 mg Q4H PRN Administration BREAKTHRU PAIN Nifedipine 60 mg 04/04/19 09:00 04/05/19 10:02 Procardia Xl PO 60 mg DAILY DIMA Administration Ondansetron HCl 4 mg 04/01/19 22:05 04/05/19 20:42 Zofran Odt PO 4 mg Q6H PRN Administration Nausea/Vomiting Ondansetron HCl 4 mg 04/02/19 21:14 04/05/19 03:59 Zofran IVP 4 mg Q6H PRN Administration Nausea/Vomiting Pantoprazole Sodium 40 mg 04/03/19 09:00 04/05/19 10:02 Protonix PO 40 mg QAM DIMA Administration Promethazine HCl 25 mg 04/04/19 00:11 04/04/19 21:20 Phenergan PO 25 mg Q8H PRN Administration Nausea Risperidone 2 mg 04/03/19 21:00 04/05/19 20:42 Risperidone PO 2 mg HS DIMA Administration Sodium Chloride 10 ml 04/01/19 22:05 04/05/19 10:05 Flush - Normal Saline IVF 10 ml PRN PRN Administration Saline Flush Tizanidine HCl 4 mg 04/02/19 17:50 04/05/19 09:59 Zanaflex PO 4 mg QID PRN Administration Muscle Spasm Tramadol HCl 50 mg 04/02/19 00:45 04/05/19 17:24 Ultram PO 50 mg QID PRN Administration Pain - Exam General Appearance: NAD, awake alert Eye: PERRL ENT: normocephalic atraumatic Neck: no JVD Heart: RRR, no murmur, no gallops, no rubs, normal peripheral pulses Respiratory: CTAB, no wheezes, no rales, no ronchi, normal chest expansion Gastrointestinal: soft, non-tender, non-distended, normal bowel sounds, no palpable masses Extremities: no edema Psychiatric: normal affect, normal behavior, A&O x 3 Hosp A/P - Plan #HTN -well controlled #Right LE DVT -on eliquis #weakness #deconditioning -per patient and daughter, has been mostly lying in bed for weeks/months -per PT, will benefit from skilled PT; CM onboard #Type 2 NSTEMI (resolved) -trop 0.1, initially uptrending but now stable -HR in low 100s -HD stable -EKG showing no signs of ischemia -echo showing grade 1/3 diastolic dysfuntion; no regional wall motion abnormality #T2DM -restarted home metformin Plan: -continue eliquis -stopped clonidine; continue hydralazine with holding parameters; will stop as well if BP continues to be well controlled -increased creatinine likely due to initiation of lisinopril; however, started gentle fluids code: full code GI : pantoprazole DVT: therapeutic eliquis
[2019-04-05] MEDS: Promethazine 25 MG TAB PO PRN (23:21)
[2019-04-06] MEDS: traMADol HCl 50 MG TAB PO PRN ×2 (04:02→11:17)
[2019-04-06] MEDS: Ondansetron ODT 4 MG TAB PO PRN (04:03)
[2019-04-06] MEDS: Labetalol HCl 100 MG/20 ML VIAL SLOW IVP SCH ×4 (04:13→16:32)
[2019-04-06 04:40] LABS: #Eosinphils 0.2 thou/uL (0.0-0.7); #Lymphocytes 1.3 thou/uL (1.20-3.40); #Monocytes 0.7 thou/uL (0.11-0.59); %Basophils 0.4 % (0.0-1.0); %Eosinophils 1.6 % (0.0-10.0); %Lymphocytes 11.8 % (21.0-51.0); %Monocytes 6.5 % (0.0-10.0); %Neutrophils 79.7 % (42.0-75.0); Hemoglobin 8.9 g/dL (12.0-16.0); Mean Corpuscular HGB CONC 31.7 g/dL (32.0-36.0); Mean Corpuscular Hemoglobin 27.8 pg (27.0-31.0); Mean Corpuscular Volume 87.9 fL (78.0-98.0); Mean Platelet Volume 5.9 fL (7.4-10.4); Platelet Count 600 thou/uL (130-400); RBC Distribution Width 15.2 % (11.5-14.5); Red Blood Cell (RBC) Count 3.18 mill/uL (4.20-5.40); White Blood Cell (WBC) Count 11.3 thou/uL (4.8-10.8)
[2019-04-06 05:07] LABS: Anion Gap 13 mmol/L (10-20); BUN (Urea Nitrogen) 18 mg/dL (9.8-20.1); Calc. Creatinine Clearance 70 mL/min (70-130); Carbon Dioxide 25 mmol/L (23-31); Chloride 94 mmol/L (98-107); Estimated GFR-MDRD 61; Glucose 119 mg/dL (80-115); Magnesium 1.4 mg/dL (1.6-2.6); Potassium 3.9 mmol/L (3.5-5.1); Sodium 128 mmol/L (136-145)
[2019-04-06] MEDS ORDERED: Magnesium Oxide 400 MG TAB PO SCH (09:00)
[2019-04-06] MEDS: NIFEdipine XL 60 MG TAB PO SCH (09:10)
[2019-04-06] MEDS: Aspirin 81 mg Enteric Coated Tablet PO SCH (09:10)
[2019-04-06] MEDS: Chlorthalidone 25 MG TAB PO SCH (09:10)
[2019-04-06] MEDS: metFORMIN 500 MG TAB PO SCH ×2 (09:11→18:44)
[2019-04-06] MEDS: Bacitracin 1 PK TOP SCH (09:11)
[2019-04-06] MEDS: Carvedilol 25 MG TAB PO SCH ×2 (09:11→16:30)
[2019-04-06] MEDS: Folic Acid 1 MG TAB PO SCH (09:11)
[2019-04-06] MEDS: Ferrous Sulfate 325 MG TAB PO SCH ×2 (09:11→16:30)
[2019-04-06] MEDS: hydrALAZINE 25 MG TAB PO SCH ×2 (09:12→16:31)
[2019-04-06] MEDS: Sodium Chloride 0.9% 1,000 ML IV SCH ×2 (09:13→09:21)
[2019-04-06] MEDS: Apixaban 5 MG TAB PO SCH (09:16)
[2019-04-06] MEDS: Promethazine 25 MG TAB PO PRN (11:24)
[2019-04-06 12:57] VITALS: TEMP 98.2
[2019-04-06 15:01] VITALS: BMI 38.0
[2019-04-06] MEDS: tiZANidine HCl 4 MG TAB PO PRN (16:29)
[2019-04-06 16:31] VITALS: BP 139/67
--- NOTE | 2019-04-07 01:38 | PQF ---
[facility] Loss Claim Clerk Crystal Reports Winform Viewer TRINIDAD ROMERO KHOA [id number] [facility] [id number] CLINICAL DOCUMENTATION CLARIFICATION FORM: POST DISCHARGE Addendum to original discharge summary date: ____ Late entry note date: __ DATE: 04/07/19 ATTN: Khoa Givens Please exercise your independent, professional judgment in responding to the clarification form. Clinical indicators are provided on the bottom of this form for your review Can you please further clarify the etiology of patient Generalized Weakness? Please check appropriate box(s): [ ] Generalized Weakness due to Traumatic Rhabdomyolysis [ ] Generalized Weakness due to Non-traumatic Rhabdomyolysis [ ] Generalized Weakness due to DVT of Right Lower extremity [ ] Other diagnosis please specify [ ] Unable to determine In addition, please specify: Present on Admission (POA): [ ] Yes [ ] No [ ] Unable to determine For continuity of documentation, please document condition throughout progress notes and discharge summary. Thank You. CLINICAL INDICATORS - SIGNS / SYMPTOMS / LABS ED Provider pg.1- Presents for evaluation of fall H and P pg.1- Generalized weakness with recurrent falls H and P pg.3- Rhabdomyolysis secondary to recurrent falls Hospitalist PN pg.2-[id number] work up pending Hospitalist PN pg.8- Right LE DVT RISK FACTORS 68 years old- H and P pg.1 Hypertension- H and P pg.1 DM type 2- H and P pg.1 Morbid obesity- H and P pg.1 Type 2 TN-Hospitalist PN pg.8 TREATMENTS: CT Brain 04/01 Chest X ray 04/01 Hand X ray 04/[address] 04/01 Knee X ray 04/01 Venogram 04/02 IV fluids- MAR (This form is maintained as a part of the permanent medical record) 2014 [employer]. All Rights Reserved [email or web address]
--- NOTE | 2019-04-07 14:11 | DIS ---
DATE OF ADMISSION: 04/01/2019 DATE OF DISCHARGE: 04/06/2019 HOSPITAL COURSE: Ms. Bagley is a 68-year-old female with medical history of hypertension, type 2 diabetes, morbid obesity, and significant immobility for the past several months, presented for generalized weakness for a week and difficulty with ambulation. She was diagnosed with hypertensive emergency as well as new onset lower extremity DVT and was started on anticoagulation treatment after the patient was explained regarding the benefits and risks of anticoagulation. At this point, it is thought that the right lower extremity DVT is provoked by the patient's immobility. In addition to that, during her hospital stay, the patient's blood pressure was significantly hard to control. The patient was started on several medications in order to better control her blood pressure. During her stay an echo showed a grade 1/3 diastolic dysfunction, but no systolic dysfunction. The patient's family requested aid with placement and rehabilitation. However, the patient's insurance could not cover the rehabilitation, so the patient was discharged home with home health and physical therapy. On the day of discharge, the patient was feeling well, had no complaints, and was hemodynamically stable. PHYSICAL EXAMINATION: VITAL SIGNS: Unremarkable. GENERAL: She was in no apparent distress. Awake and alert. EYES: PERRL. ENT: Normocephalic, atraumatic. NECK: No JVD. HEART: Regular rate and rhythm. No murmur. No gallops. No rubs. Normal peripheral pulses. RESPIRATORY: Clear to auscultation bilaterally. No wheezes. No rales. No rhonchi. Normal chest expansion. GI: Soft, nontender, nondistended. Normal bowel sounds. No palpable masses. Extremities: No edema. PSYCHIATRIC: Flat affect. Normal behavior. Alert and oriented x3. ASSESSMENT AND PLAN: Ms. Bagley is a 68-year-old female with a medical history of type 2 diabetes, hypertension, morbid obesity and chronic immobility, who presented with hypertensive emergency and a right lower extremity DVT. The patient was started on Eliquis for her left lower extremity DVT. For the blood pressure she was started on several medications as reported in the discharge papers. The patient required multiple antihypertensives which better controlled the blood pressure. The patient was discharged with followup appointment to her primary care physician for better control of her blood pressure as well as addressing the patient's psychosocial issues. She was discharged with home health and physical therapy in order to address her deconditioning and aid in rehabilitation. Job ID: [id number]
== END 2019-04-06 19:25 | disposition home health service (06) | DRG 281 ==
LOC: ERS 15:32 → 2NO 20:58
PROVIDERS: ADMIT Internal Medicine; ATTEND Internal Medicine
DX: I82.411 Acute embolism and thrombosis of right femoral vein (principal); I21.A1 Myocardial infarction type 2; Q60.0 Renal agenesis, unilateral; E87.1 Hypo-osmolality and hyponatremia; E87.2 Acidosis; I16.1 Hypertensive emergency; M62.82 Rhabdomyolysis; E78.5 Hyperlipidemia, unspecified; E78.00 Pure hypercholesterolemia, unspecified; I10 Essential (primary) hypertension; F41.9 Anxiety disorder, unspecified; F31.9 Bipolar disorder, unspecified; F20.9 Schizophrenia, unspecified; E66.01 Morbid (severe) obesity due to excess calories; D64.9 Anemia, unspecified; E86.0 Dehydration; E87.5 Hyperkalemia; W19.XXXA Unspecified fall, initial encounter; R29.6 Repeated falls; G89.4 Chronic pain syndrome; E11.649 Type 2 diabetes mellitus with hypoglycemia without coma; I16.0 Hypertensive urgency; Z90.49 Acquired absence of other specified parts of digestive tract; Z90.710 Acquired absence of both cervix and uterus; Z99.3 Dependence on wheelchair; Z87.891 Personal history of nicotine dependence; Z79.84 Long term (current) use of oral hypoglycemic drugs; Z79.899 Other long term (current) drug therapy; Z68.38 Body mass index [BMI] 38.0-38.9, adult
CPT/HCPCS: 36415; 36416; 51701; 70450; 71045; 72125; 72128; 72131; 80048; 80053; 80061; 81003; 81015; 82533; 82550; 82553; 82607; 82746; 83735; 84100; 84484; 85025; 85730; 90471; 90715; 93005; 93010; 93306; 93970; 94760; 96374; 96376; A4353; J0360; J1644; J1650; J1815; J1940; J2270; J2405; J2550; J3475; Q0162; Q0169

== ENCOUNTER 2019-04-18 12:26 | Inpatient (IN) | payer MEDICARE ==
[2019-04-18 13:44] LABS: INR-International Normal Ratio 1.3; PTT 27.5 SEC (22.9-36.1); Prothrombin Time 16.6 SEC (12.0-14.7)
[2019-04-18 13:45] LABS: #Eosinphils 0.1 thou/uL (0.0-0.7); #Lymphocytes 1.3 thou/uL (1.20-3.40); #Monocytes 0.6 thou/uL (0.11-0.59); #Neutrophils 7.3 thou/uL (1.40-6.50); %Eosinophils 0.6 % (0.0-10.0); %Lymphocytes 14.4 % (21.0-51.0); %Monocytes 6.5 % (0.0-10.0); %Neutrophils 78.6 % (42.0-75.0); Mean Corpuscular HGB CONC 33.1 g/dL (32.0-36.0); Mean Corpuscular Volume 90.7 fL (78.0-98.0); Mean Platelet Volume 6.5 fL (7.4-10.4); Platelet Count 558 thou/uL (130-400); Red Blood Cell (RBC) Count 1.99 mill/uL (4.20-5.40); White Blood Cell (WBC) Count 9.3 thou/uL (4.8-10.8)
[2019-04-18 13:57] LABS: ALT (SGPT) 15 U/L (8-55); AST (SGOT) 13 U/L (5-34); Albumin 3.4 g/dL (3.4-4.8); Alkaline Phosphatase 91 U/L (40-110); Anion Gap 15 mmol/L (10-20); BUN (Urea Nitrogen) 34 mg/dL (9.8-20.1); Bilirubin, Total 0.2 mg/dL (0.2-1.2); Calc. Creatinine Clearance 0 mL/min (70-130); Calcium 9.7 mg/dL (7.8-10.44); Carbon Dioxide 20 mmol/L (23-31); Chloride 98 mmol/L (98-107); Estimated GFR-MDRD 40; Globulin 2.8 g/dL (2.4-3.5); Glucose 120 mg/dL (80-115); Potassium 4.8 mmol/L (3.5-5.1); Protein, Total 6.2 g/dL (6.0-8.3); Sodium 128 mmol/L (136-145)
[2019-04-18] MEDS ORDERED: Pantoprazole 40 MG VIAL ONE (14:29)
[2019-04-18] MEDS ORDERED: Acetaminophen 650 MG Suppository PR PRN (17:37)
[2019-04-18] MEDS ORDERED: Ondansetron PF 4 MG/2 ML Vial IVP PRN (17:37)
[2019-04-18] MEDS ORDERED: Dextrose 5% in Water 1,000 ML IV PRN (17:37)
[2019-04-18] MEDS ORDERED: HumaLOG 300 UNITS/3 ML VIAL SC PRN ×2 (17:37)
[2019-04-18] MEDS ORDERED: Dextrose 50% Abboject 50 ML SYRINGE SLOW IVP PRN (17:37)
[2019-04-18 19:51] VITALS: BMI 36.6
[2019-04-18] MEDS: hydrALAZINE 25 MG TAB PO SCH (20:20)
[2019-04-18] MEDS: Pantoprazole 40 MG VIAL IVP SCH (20:20)
[2019-04-18] MEDS: risperiDONE 1 MG TAB PO SCH ×2 (20:30→21:22)
[2019-04-18] MEDS: Acetaminophen 325 MG TAB PO PRN (20:41)
[2019-04-19] MEDS: Acetaminophen 325 MG TAB PO PRN ×3 (00:50→18:41)
[2019-04-19 06:29] LABS: Hemoglobin 10.5 g/dL (12.0-16.0)
[2019-04-19 06:38] LABS: ALT (SGPT) 14 U/L (8-55); AST (SGOT) 15 U/L (5-34); Albumin 3.3 g/dL (3.4-4.8); Alkaline Phosphatase 95 U/L (40-110); Anion Gap 11 mmol/L (10-20); BUN (Urea Nitrogen) 24 mg/dL (9.8-20.1); Bilirubin, Total 0.4 mg/dL (0.2-1.2); Calc. Creatinine Clearance 64 mL/min (70-130); Calcium 9.1 mg/dL (7.8-10.44); Carbon Dioxide 21 mmol/L (23-31); Chloride 103 mmol/L (98-107); Estimated GFR-MDRD 53; Globulin 2.7 g/dL (2.4-3.5); Glucose 104 mg/dL (80-115); Potassium 4.4 mmol/L (3.5-5.1); Sodium 131 mmol/L (136-145)
--- NOTE | 2019-04-19 06:38 | HP ---
REASON FOR ADMISSION: Acute blood loss anemia, hyponatremia. HISTORY OF PRESENTING ILLNESS: The patient gives history of having had a regular followup to see her primary care physician, Dr. Jenny Gongora. She was found to have had hemoglobin of 4.5 g in the clinic and was asked to go to the ER. She in fact was discharged a week back after being diagnosed with left lower extremity DVT and was placed on Eliquis. No laura bleeding per rectum or melena per patient. She had a normal bowel movement yesterday evening. She normally ambulates with a walker minimally at home. No complaints of hematemesis. She has mild epigastric discomfort, which is not exactly a pain. No nausea or vomiting. No back pain or abdominal pain. PAST MEDICAL AND SURGICAL HISTORY: History of DVT, diagnosed on the in the right distal superficial vein, which was a nonocclusive thrombus; hypertension; dyslipidemia; diabetes mellitus, type 2; poor functional status; morbid obesity; chronic anemia; congenitally absent one kidney; anxiety disorder; depression; schizophrenia; appendectomy; hysterectomy; and back surgery. The patient has had prior endoscopies including upper and lower endoscopies with no significant findings per patient. CURRENT MEDICATIONS: The patient is on; 1. Eliquis 5 mg twice daily. 2. Coreg 25 mg twice daily. 3. Chlorthalidone 25 mg daily. 4. Ferrous sulfate 325 mg twice daily. 5. Lasix 20 mg daily. 6. Hydralazine 50 mg three times daily. 7. Lisinopril 20 mg p.o. at bedtime. 8. Magnesium oxide 400 mg p.o. daily. 9. Risperdal 2 mg p.o. at bedtime. 10. Zanaflex 4 mg p.o. 4 times daily p.r.n. 11. Ultram 50 mg 4 times daily p.r.n. 12. Tylenol No. 4 q.4 hourly p.r.n. 13. Colace 100 mg daily. 14. Glipizide 10 mg daily. 15. Metformin 500 mg twice daily. 16. Omeprazole 40 mg daily. 17. Actos 15 mg p.o. daily. ALLERGIES: NO KNOWN DRUG ALLERGIES. PERSONAL HISTORY: Does not abuse alcohol or drugs. No history of smoking. FAMILY HISTORY: Mother at the age of 79. She has had history of diabetes and hypertension. Father at the age of 76 years. He had history of hypertension and CVA. CODE STATUS: Full. Power of associate attorney is her . REVIEW OF SYSTEMS: CONSTITUTIONAL: Negative for weight loss or gain, ability to conduct usual activities. SKIN: Negative for rash, itching. EYES: Negative for double vision, pain. ENT/MOUTH: Negative for nose bleeding, neck stiffness, pain, tenderness. CARDIOVASCULAR: Negative for palpitations, dyspnea on exertion, orthopnea. RESPIRATORY: Negative for shortness of breath, wheezing, cough, hemoptysis, fever or night sweats. GASTROINTESTINAL: Negative for poor appetite, abdominal pain, heartburn, nausea, vomiting, constipation, or diarrhea. GENITOURINARY: Negative for urgency, frequency, dysuria, nocturia. MUSCULOSKELETAL: Negative for pain, swelling. NEUROLOGIC/PSYCHIATRIC: Negative for anxiety, depression. ALLERGY/IMMUNOLOGIC: Negative for skin rash, bleeding tendency. PHYSICAL EXAMINATION: GENERAL: The patient is a 68-year-old female who is currently not in any acute distress. VITAL SIGNS: Blood pressure 113/38, pulse 76 per minute, respiratory rate 16 per minute, saturating 100% on room air, and temperature 98.2 degrees Fahrenheit. NECK: Supple. No elevated JVD. HEENT: Eyes; extraocular muscles intact. Pupils reacting to light. Oral cavity, mucous membranes are dry. No exudates or congestion. CARDIOVASCULAR SYSTEM: S1 and S2 heard. Regular rhythm. RESPIRATORY SYSTEM: Air entry 1+ bilateral. No rales or rhonchi. ABDOMEN: Soft. Bowel sounds heard. No tenderness, rigidity, or guarding. EXTREMITIES: There is mild peripheral edema. No calf tenderness. VASCULAR SYSTEM: Peripheral pulses 1+ bilateral. No ischemic ulcerations or gangrene. CENTRAL NERVOUS SYSTEM: No gross focal deficits noted. The patient is alert, awake, and oriented well. PSYCHIATRIC SYSTEM: The patient's mood is euthymic. No hallucinations or delusions. LABORATORY DATA: White count of 9, H and H 6 and 18, platelet count 558 with 78% neutrophils, MCV is 90. PT/INR 16 and 1.3 and PTT of 27. Sodium 128, serum bicarb 20, BUN 34, creatinine 1.3, serum glucose 120. Liver enzymes within normal limits. Albumin is 3.4. Stool occult blood has been positive. CLINICAL IMPRESSION AND PLAN: The patient will be admitted to medical floor for likely acute blood loss anemia with elevated BUN and creatinine and hemoglobin of 6. She is also on Eliquis for recently diagnosed deep venous thrombosis in the right superficial femoral vein. We will keep her on clear liquid diet. The patient has had a recent upper and lower endoscopy in 2017, which has not revealed any acute pathology for low hemoglobin in the past. Her hemoglobin runs around 8 g. She will be on Protonix 40 mg IV q.12 hourly, Coreg 3.125 mg twice daily, hydralazine 50 mg 3 times daily, and risperidone 2 mg p.o. at bedtime. We will obtain GI consultation with Dr. Shabazz, who is on-call. She will be kept n.p.o. after midnight. The patient will be given 2 units of packed cells in view of her being on Eliquis till now. We will obtain H and H q.6 hourly to see the trend of her hemoglobin as well. Job ID: [id number]
[2019-04-19] MEDS: Carvedilol 3.125 MG TAB PO SCH ×2 (08:17→16:11)
[2019-04-19] MEDS: hydrALAZINE 25 MG TAB PO SCH ×4 (08:17→20:13)
[2019-04-19] MEDS: Pantoprazole 40 MG VIAL IVP SCH ×2 (08:24→20:13)
[2019-04-19] MEDS ORDERED: Morphine 2 MG/ML SYRINGE SLOW IVP SCH (09:00)
[2019-04-19 09:16] LABS: Hemoglobin 10.5 g/dL (12.0-16.0)
[2019-04-19] MEDS ORDERED: Lidocaine 1% PF 5 ML VIAL ONE (10:07)
[2019-04-19] MEDS ORDERED: PROPOFOL 200 MG/20 ML VIAL ONE (10:07)
--- NOTE | 2019-04-19 12:47 | PDOC.HOSPP ---
- Subjective Encounter Date: 04/19/19 Encounter Time: 07:00 Subjective: mild epigastric dyscomfort, no diarrhea/bleeding per rectum or hemoptysis no sob - Objective Vital Signs & Weight: Vital Signs (12 hours) Temp Pulse Resp BP Pulse Ox 04/19/19 12:25 98.9 F 81 14 183/72 H 98 04/19/19 08:30 97 04/19/19 07:30 99.3 F 88 16 158/81 H 97 04/19/19 03:54 98.9 F 98 20 163/82 H 98 Weight Weight 169 lb Most Recent Monitor Data Heart Rate from ECG 94 I&O: 04/18/19 04/19/19 04/20/19 06:59 06:59 06:59 Intake Total 1150 Output Total 900 Balance 250 Result Diagrams: 04/19/19 09:05 04/19/19 05:41 Additional Labs: Accuchecks 04/18/19 20:20 POC Glucose 135 H Hospitalist ROS - Medication Medications: Active Medications Generic Name Dose Route Start Last Admin Trade Name Freq PRN Reason Stop Dose Admin Acetaminophen 650 mg 04/18/19 17:37 04/19/19 04:36 Tylenol PO 650 mg Q4H PRN Administration Headache/Fever/Mild Pain (1-3) Carvedilol 3.125 mg 04/19/19 08:00 04/19/19 08:17 Coreg PO Not Given BID-WM DIMA Hydralazine HCl 50 mg 04/18/19 21:00 04/19/19 08:17 Apresoline PO Not Given TID DIMA Ondansetron HCl 4 mg 04/18/19 17:37 04/19/19 08:23 Zofran IVP 4 mg Q6H PRN Administration Nausea/Vomiting Pantoprazole Sodium 40 mg 04/18/19 21:00 04/19/19 08:24 Protonix IVP 40 mg Q12HR DIMA Administration Risperidone 2 mg 04/18/19 21:00 04/18/19 21:22 Risperidone PO 2 mg HS DIMA Administration Sodium Chloride 10 ml 04/18/19 17:37 04/19/19 08:24 Flush - Normal Saline IVF 10 ml PRN PRN Administration Saline Flush - Exam General Appearance: awake alert Eye: PERRL, anicteric sclera ENT: no oropharyngeal lesions, dry oral mucosa Neck: supple, no JVD Heart: RRR, no murmur Respiratory: no wheezes, no rales Gastrointestinal: soft, non-tender, non-distended, normal bowel sounds Extremities: no cyanosis, no clubbing Extremities - other findings: severe osteoarthritis of knees Neurological: cranial nerve grossly intact, no focal deficits Psychiatric: normal affect, A&O x 3 Hosp A/P (1) Symptomatic anemia Code(s): D64.9 - ANEMIA, UNSPECIFIED Status: Acute (2) Epigastric abdominal pain Code(s): R10.13 - EPIGASTRIC PAIN Status: Acute (3) H/O deep venous thrombosis Code(s): Z86.718 - PERSONAL HISTORY OF OTHER VENOUS THROMBOSIS AND EMBOLISM Status: Acute (4) Diabetes type 2, controlled Code(s): E11.9 - TYPE 2 DIABETES MELLITUS WITHOUT COMPLICATIONS Status: Chronic Qualifiers: Diabetes mellitus shelter insulin use: with shelter use Diabetes mellitus complication status: with unspecified complications Qualified Code(s) : E11.8 - Type 2 diabetes mellitus with unspecified complications; Z79.4 - ocean transportation intermediary (current) use of insulin (5) Dyslipidemia Code(s): E78.5 - HYPERLIPIDEMIA, UNSPECIFIED Status: Chronic (6) Hypertension Code(s): I10 - ESSENTIAL (PRIMARY) HYPERTENSION Status: Chronic Qualifiers: Hypertension type: essential hypertension Qualified Code(s): I10 - Essential (primary) hypertension (7) Obesity (BMI 30-39.9) Code(s): E66.9 - OBESITY, UNSPECIFIED Status: Chronic (8) Schizophrenia Code(s): F20.9 - SCHIZOPHRENIA, UNSPECIFIED Status: Chronic Qualifiers: Schizophrenia type: unspecified Qualified Code(s): F20.9 - Schizophrenia, unspecified (9) NING (acute kidney injury) Code(s): N17.9 - ACUTE KIDNEY FAILURE, UNSPECIFIED Status: Resolved - Plan recieved 2 u prbc overnight, Hb around 10g now is npo for egd today continue coreg, hydralazine, risperidone after egd morphine prn, protonix q12h at baseline she has limited mobility due to severe osteoarthritis in knees and hips hemostable
[2019-04-19] MEDS ORDERED: Nitroglycerin 2% Ointment 1 INCH/1 GM Packet TOP SCH (13:15)
--- NOTE | 2019-04-19 16:33 | CON ---
DATE OF CONSULTATION: 04/19/2019 REASON FOR CONSULTATION: Severe anemia and heme-positive stool. HISTORY OF PRESENT ILLNESS: Ms. Bagley is a 68-year-old female, who was admitted to the hospital after being found to have severe anemia with hemoglobin of 4.5 in her outpatient clinic. She was admitted to the hospital with hemoglobin of 6. After transfusion, her hemoglobin has remained stable at approximately 10 g/dL. The patient was admitted to the hospital 2 weeks ago with diagnosis of DVT and was started on Eliquis. She reports having dark, but not black stool for the last month even before starting the Eliquis. She denies any hematochezia, rectal bleeding, nausea, or vomiting. She has no abdominal pain or discomfort. The patient has had recurrent severe anemia in the past, thought to be from chronic iron deficiency anemia. She was admitted to the hospital in 2012, 2013, 2014, and 2016 with severe anemia with hemoglobin as low as 4.9. She has had 4 upper endoscopies that were normal. She had 2 colonoscopies in 2012 and 2016, that were both normal. Outpatient video capsule study of her small bowel in 11/2016, was negative. PAST MEDICAL HISTORY: 1. Adult onset diabetes. 2. Hypertension. 3. Hyperlipidemia. 4. Obesity. 5. Recent diagnosis of DVT. 6. Status post appendectomy, hysterectomy, and back surgery. 7. Status post multiple GI evaluation that was negative for enteric bleeding. Four EGDs, two colonoscopies, and one small-bowel capsule study between 2012 and 2016. ALLERGIES: NONE. MEDICATIONS: Include: 1. Insulin. 2. Pantoprazole 20 mg IV q.12. Home medications include: 1. Eliquis. 2. Coreg. 3. Chlorthalidone. 4. Lisinopril. 5. Hydralazine. 6. Risperdal. 7. Zanaflex. 8. Actos. 9. Omeprazole. 10. Metformin. SOCIAL HISTORY: The patient is . She has no tobacco or alcohol usage. FAMILY HISTORY: Negative for any known GI problem, liver disease, or GI malignancy. REVIEW OF SYSTEMS: Ten-point review of systems did not show any other pertinent positives or negatives. No other reported symptoms other than stated above. PHYSICAL EXAMINATION: VITAL SIGNS: Temperature is 99.3, blood pressure 158/81, pulse of 88. GENERAL: She is alert, in no distress. HEENT: Exam shows anicteric sclerae. Oropharynx is clear. CV: Shows normal S1 and S2. Regular rate and rhythm. CHEST: Shows breath sounds clear to auscultation. ABDOMEN: Soft and nontender. Good bowel sounds. EXTREMITIES: Exam shows no edema. LABORATORY DATA: Hemoglobin 6.0, now at 10.0 to 10.5 after 2 units. WBC is 9.3. Platelet count of 558. Electrolytes within normal range. Creatinine 1.04 with BUN of 24. LFTs are normal. Stool occult blood is positive. ASSESSMENT: 1. The patient was admitted with severe symptomatic anemia, now stabilized after transfusion. She has a questionable "dark stool" at home for the last month even preceding initiation of Eliquis. She has had recurrent severe anemia over the last 7 years with multiple admissions. Her gastrointestinal evaluation including four esophagogastroduodenoscopies, two colonoscopies, and small-bowel capsule study over this time span had been negative. 2. Diabetes/hypertension/hyperlipidemia. RECOMMENDATIONS: 1. Since the patient does have heme-positive stool this time, we will proceed with upper endoscopy. 2. If negative, may consider repeating outpatient small-bowel capsule endoscopy as the patient will likely need long-term anticoagulant therapy for DVT. 3. Further recommendation to follow pending above findings. Job ID: [id number]
--- NOTE | 2019-04-19 18:03 | OP ---
DATE OF PROCEDURE: 04/19/2019 PROCEDURE PERFORMED: Esophagogastroduodenoscopy with biopsy. PREMEDICATION: Given by Anesthesiology Department. PREPROCEDURE DIAGNOSES: 1. Severe acute anemia. 2. History of dark, almost black stool. POSTPROCEDURE DIAGNOSES: 1. 1.5 cm ulcer in the prepyloric area without any clots or visible vessel. 2. Otherwise, normal upper endoscopy. DESCRIPTION OF PROCEDURE: Written consents were obtained prior to procedure. After adequate sedation, the forward-viewing endoscope was advanced down the stomach under direct vision to the third portion of the duodenum. The duodenum including the bulb appeared normal. Pylorus was patent. Next to the pylorus, a 1.5 cm clean crater ulcer was seen. There were no stigmata of recent bleed as there was no visible vessel, adherent clot, or red mike sign. The incisura, body, fundus, and cardia appeared normal. Retroflexion did not show any abnormality. Biopsies were obtained from the gastric lining for H. pylori testing. The GE junction with regular Z- line was located at 36 cm. The esophagus appeared normal. ASSESSMENT: 1. Gastric ulcer in the prepyloric area. 2. Otherwise, normal upper endoscopy. 3. Suspect acute anemia slightly from acute gastrointestinal blood loss from the ulcer that has stopped. RECOMMENDATIONS: 1. We would advanced diet. 2. If the patient can tolerate well, can discharge to home on pantoprazole 40 mg p.o. BID. 3. Avoid NSAID (pt has been taking Advil at home). 4. Resume Eliquis in 3-4 days. Job ID: [id number] [facility]
[2019-04-19] MEDS: risperiDONE 1 MG TAB PO SCH (20:23)
[2019-04-19] MEDS ORDERED: Lidocaine 2% Viscous Solution 10 ML, Aluminum & Magnesium Hydroxide 30 ML SSW SCH (21:45)
[2019-04-19] MEDS: traMADol HCl 50 MG TAB PO PRN (22:02)
[2019-04-20] MEDS: Acetaminophen 325 MG TAB PO PRN ×2 (01:17→16:58)
[2019-04-20] MEDS: traMADol HCl 50 MG TAB PO PRN ×3 (04:05→16:58)
[2019-04-20 06:07] LABS: #Eosinphils 0.1 thou/uL (0.0-0.7); #Lymphocytes 1.1 thou/uL (1.20-3.40); #Monocytes 0.7 thou/uL (0.11-0.59); %Basophils 0.5 % (0.0-1.0); %Eosinophils 0.8 % (0.0-10.0); %Lymphocytes 16.1 % (21.0-51.0); %Monocytes 10.4 % (0.0-10.0); %Neutrophils 72.2 % (42.0-75.0); Hemoglobin 10.2 g/dL (12.0-16.0); Mean Corpuscular HGB CONC 31.8 g/dL (32.0-36.0); Mean Corpuscular Volume 91.3 fL (78.0-98.0); Mean Platelet Volume 6.4 fL (7.4-10.4); Platelet Count 495 thou/uL (130-400); RBC Distribution Width 16.7 % (11.5-14.5); Red Blood Cell (RBC) Count 3.53 mill/uL (4.20-5.40)
[2019-04-20] MEDS: hydrALAZINE 25 MG TAB PO SCH ×2 (09:10→16:57)
[2019-04-20] MEDS: Carvedilol 3.125 MG TAB PO SCH ×2 (09:10→16:57)
[2019-04-20] MEDS: Pantoprazole 40 MG VIAL IVP SCH (09:11)
--- NOTE | 2019-04-20 11:13 | PDOC.HOSPP ---
- Subjective Encounter Date: 04/20/19 Encounter Time: 07:30 Subjective: no abd pain or sob feels better at bedside - Objective Vital Signs & Weight: Vital Signs (12 hours) Temp Pulse Resp BP BP Pulse Ox 04/20/19 09:10 85 161/80 H 04/20/19 08:00 97 04/20/19 07:34 98.6 F 88 14 173/89 H 97 04/20/19 03:41 98.5 F 89 20 168/84 H 96 Weight Weight 169 lb Most Recent Monitor Data Heart Rate from ECG 94 I&O: 04/19/19 04/20/19 04/21/19 06:59 06:59 06:59 Intake Total 1150 930 Output Total 900 1900 Balance 250 -970 Result Diagrams: 04/20/19 05:25 04/19/19 05:41 Additional Labs: Accuchecks 04/20/19 04/19/19 04/19/19 03:49 19:16 16:40 POC Glucose 166 H 144 H 176 H 04/19/19 04/19/19 12:51 03:54 POC Glucose 162 H 95 Hospitalist ROS - Medication Medications: Active Medications Generic Name Dose Route Start Last Admin Trade Name Freq PRN Reason Stop Dose Admin Acetaminophen 650 mg 04/18/19 17:37 04/20/19 01:17 Tylenol PO 650 mg Q4H PRN Administration Headache/Fever/Mild Pain (1-3) Carvedilol 3.125 mg 04/19/19 08:00 04/20/19 09:10 Coreg PO 3.125 mg BID-WM DIMA Administration Hydralazine HCl 50 mg 04/18/19 21:00 04/20/19 09:10 Apresoline PO 50 mg TID DIMA Administration Insulin Human Lispro 0 units 04/18/19 17:37 04/20/19 05:06 Humalog SC 2 unit .MODERATE SLIDING SC PRN Administration Moderate Correctional Scale Ondansetron HCl 4 mg 04/18/19 17:37 04/19/19 08:23 Zofran IVP 4 mg Q6H PRN Administration Nausea/Vomiting Pantoprazole Sodium 40 mg 04/18/19 21:00 04/20/19 09:11 Protonix IVP 40 mg Q12HR DIMA Administration Risperidone 2 mg 04/18/19 21:00 04/19/19 20:23 Risperidone PO 2 mg HS DIMA Administration Sodium Chloride 10 ml 04/18/19 17:37 04/19/19 08:24 Flush - Normal Saline IVF 10 ml PRN PRN Administration Saline Flush Tramadol HCl 50 mg 04/19/19 21:43 04/20/19 09:15 Ultram PO 50 mg Q4H PRN Administration Moderate Pain (4-6) - Exam General Appearance: awake alert Eye: PERRL, anicteric sclera ENT: no oropharyngeal lesions, moist mucosa Neck: supple, no JVD Heart: RRR, no murmur Respiratory: no wheezes, no rales Gastrointestinal: soft, non-tender, non-distended, normal bowel sounds Extremities: no cyanosis, no edema Neurological: cranial nerve grossly intact, no focal deficits Hosp A/P (1) Acute blood loss anemia Code(s): D62 - ACUTE POSTHEMORRHAGIC ANEMIA Status: Acute (2) PUD (peptic ulcer disease) Code(s): K27.9 - PEPTIC ULC, SITE UNSP, UNSP AC OR CHR, W/O HEMOR OR PERF Status: Acute (3) Epigastric abdominal pain Code(s): R10.13 - EPIGASTRIC PAIN Status: Resolved (4) H/O deep venous thrombosis Code(s): Z86.718 - PERSONAL HISTORY OF OTHER VENOUS THROMBOSIS AND EMBOLISM Status: Acute (5) Diabetes type 2, controlled Code(s): E11.9 - TYPE 2 DIABETES MELLITUS WITHOUT COMPLICATIONS Status: Chronic Qualifiers: Diabetes mellitus long term acute care registered nurse insulin use: with senior living use Diabetes mellitus complication status: with unspecified complications Qualified Code(s) : E11.8 - Type 2 diabetes mellitus with unspecified complications; Z79.4 - long-term (current) use of insulin (6) Dyslipidemia Code(s): E78.5 - HYPERLIPIDEMIA, UNSPECIFIED Status: Chronic (7) Hypertension Code(s): I10 - ESSENTIAL (PRIMARY) HYPERTENSION Status: Chronic Qualifiers: Hypertension type: essential hypertension Qualified Code(s): I10 - Essential (primary) hypertension (8) Obesity (BMI 30-39.9) Code(s): E66.9 - OBESITY, UNSPECIFIED Status: Chronic (9) Schizophrenia Code(s): F20.9 - SCHIZOPHRENIA, UNSPECIFIED Status: Chronic Qualifiers: Schizophrenia type: unspecified Qualified Code(s): F20.9 - Schizophrenia, unspecified (10) NING (acute kidney injury) Code(s): N17.9 - ACUTE KIDNEY FAILURE, UNSPECIFIED Status: Resolved - Plan recieved 2 u prbc on 04/18/2019, serial Hb stable around 10g has nonocclusive dvt in the superficial femoral vein, will d/w if she is a candidate for temp ivc filter for 1 week after which she can resume eliquis. continue coreg, hydralazine, risperidone morphine prn, protonix q12h at baseline she has limited mobility due to severe osteoarthritis in knees and hips hemostable
[2019-04-20 16:59] VITALS: BP 158/83
[2019-04-20 17:03] VITALS: TEMP 98.6
[2019-04-20] MEDS ORDERED: Enoxaparin Sodium 40 MG/0.4 ML SYRINGE SC SCH (18:00)
--- NOTE | 2019-04-20 18:07 | DIS ---
DATE OF ADMISSION: 04/18/2019 DATE OF DISCHARGE: 04/20/2019 DISCHARGE DISPOSITION: Home. PRIMARY DISCHARGE DIAGNOSIS: Peptic ulcer disease with acute blood loss anemia. SECONDARY DISCHARGE DIAGNOSES: 1. History of deep vein thrombosis. 2. Diabetes mellitus type 2. 3. Chronic deconditioning. 4. Acute kidney injury. 5. Schizophrenia. 6. Obesity. 7. Hypertension. 8. Dyslipidemia. PROCEDURES DONE DURING HOSPITALIZATION: The patient has had upper endoscopy done by Dr. Silva on 04/19/2019, which showed gastric ulcer in the prepyloric area. There was no active bleeding seen. Histopathology of gastric biopsy done, showed no H pylori organism. Mild reactive gastropathy with focal intestinal metaplasia was seen. Initial H and H of 6 and 18, discharge H and H of 10 and 32, platelet count 495. PT/INR 16 and 1.3, PTT 27. Discharge BUN and creatinine are 24 and 1.0, admitting BUN and creatinine were 34 and 1.3. INPATIENT SEC ACCOUNTANT: Dr. Silva for Gastroenterology. DISCHARGE PLAN: The patient is to follow up with Ms. Jenny Gongora, her primary care physician, in 1 week. DISCHARGE MEDICATIONS: 1. Eliquis 5 mg twice daily to restart on of this month until then Lovenox 40 mg subcu daily. 2. Metformin 500 mg p.o. twice daily. 3. Colace 100 mg p.o. daily. 4. Omeprazole 40 mg p.o. daily. 5. Actos 15 mg daily. 6. Risperdal 2 mg p.o. at bedtime. 7. Tizanidine 4 mg p.o. 4 times daily p.r.n. 8. Ultram 50 mg p.o. 4 times daily p.r.n. 9. Coreg 25 mg twice daily. 10. Ferrous sulfate 325 mg twice daily. 11. Furosemide 20 mg daily p.r.n. for edema in lower extremities. 12. Hydralazine 50 mg three times daily. 13. Lisinopril 20 mg p.o. at bedtime. 14. Magnesium oxide 400 mg p.o. daily. BRIEF COURSE DURING HOSPITALIZATION: The patient initially got admitted on the 3rd after she was found to have had hemoglobin of 4.5 on a regular followup to see her primary care physician, Dr. Jenny Gongora, nurse practitioner. The patient was on Eliquis for recently diagnosed nonocclusive left lower extremity DVT and was on Eliquis. In view of this history and initial hemoglobin of 6, the patient was given 2 units of packed cell transfusion and was admitted to medical floor. She has had acute kidney injury as well on admission. Dr. Silva for Gastroenterology consultation was requested. The patient has had upper endoscopy done, which showed peptic ulcer disease in the pre-pyloric area with gastric ulcer. After 2 units of packed cell, the patient's H and H has remained stable. Prior to discharge, she is ambulating in the room and tolerating oral solid diet. She needs to hold her Eliquis till the 5th and take Lovenox 40 mg subcu daily until then to prevent further worsening of her clot. She is hemodynamically stable and will be shortly discharged home. Please see a [id number] documentation for the day of discharge on [id number]. Job ID: [id number]
--- NOTE | 2019-04-20 19:20 | PRG ---
DATE OF SERVICE: 04/20/2019 SUBJECTIVE: Ms. Bagley is doing well. She is without complaints. She has had no further bleeding. OBJECTIVE: VITAL SIGNS: Blood pressure is 158/83, pulse 77, temperature 96, respirations 18. ABDOMEN: Soft, nontender. LABORATORY DATA: Hemoglobin is 10.2, white count 7, BUN and creatinine 24 and 1.0. ASSESSMENT: Recurrent gastrointestinal bleeding secondary to duodenal ulcer. Biopsy showed no H pylori. RECOMMENDATIONS: 1. Avoid NSAIDs. 2. PPI therapy for 8 weeks. 3. Resume antiplatelet therapy in 5 days for history of DVT. The 24 of April would be adequate, would be fine. Job ID: [id number]
--- NOTE | 2019-04-21 09:33 | CON ---
DATE OF CONSULTATION: HISTORY OF PRESENT ILLNESS: This is a 68-year-old female hospitalized last month for frequent falls. The patient states that she has essentially been nonambulatory for about 12 years due to pain in her legs and the etiology of this pain is unknown. While in the hospital, she underwent venous ultrasonography of her legs, where she was found to have a partially non-occluding thrombus in her right distal superficial femoral vein. She was begun on Eliquis at that time, followed up with her family physician and was found to have a hemoglobin reported at 4.5, and then was 6 here. She does have chronic anemia in the 9-10 range. She denied any blood per rectum or vomiting blood. She has been transfused here and her Eliquis was held and the question has been raised as to whether a temporary IVC filter should be placed. Otherwise, she has diabetes mellitus, dyslipidemia, congenitally absent right kidney, anxiety and depression, schizophrenia. PAST SURGICAL HISTORY: Includes appendectomy, hysterectomy and back surgery. She has had previous endoscopies for her chronic anemia. MEDICATIONS: On admission are listed in the chart. Her upper GI endoscopy showed a non-bleeding duodenal ulcer and she was placed on Protonix 40 b.i.d. with the recommendation to hold Eliquis for about 1 week. PHYSICAL EXAMINATION: VITAL SIGNS: On examination, she is pleasant, Turkmen-speaking lady in no distress, height 4 feet 9 inches, weight 169, BMI 37. NECK: No carotid bruits. CARDIAC: Regular rate and rhythm. No murmurs. LUNGS: Clear to auscultation. ABDOMEN: Obese, nontender. EXTREMITIES: She has palpable femoral, posterior tibial pulses bilaterally as well as a left dorsalis pedis pulse. She has no peripheral edema. PLAN: At this time, I think a low-dose Lovenox 40 mg a day would be the most appropriate treatment. I think that placement of a temporary IVC filter for partially non-occluding thrombus that was treated for the past 10 days with Eliquis has a very low likelihood of causing a pulmonary embolus and low-dose Lovenox can be used to prevent any further thrombus formation until the Eliquis can be resumed. Given the fact that she is on IV Protonix with non-bleeding ulcer, I think that her risk of rebleeding even with anticoagulation should be small and I agree with resumption of Eliquis when okay with GI, which has now been deemed 3-4 days. Overall, I think the need for IVC filter is low and would continue with Lovenox until Eliquis can be resumed. Job ID: [id number]
== END 2019-04-20 19:58 | disposition home or self-care (01) | DRG 811 ==
LOC: ERS 12:26 → ERHOLD 15:48 → T4-A 19:38
PROVIDERS: ADMIT Emergency Medicine; ATTEND Internal Medicine
PROC: 30233N1 Transfusion of Nonautologous Red Blood Cells into Peripheral Vein, Percutaneous Approach (ICD-10-PCS; principal; 2019-04-18)
PROC: 0DB68ZX Excision of Stomach, Via Natural or Artificial Opening Endoscopic, Diagnostic (ICD-10-PCS; 2019-04-19)
DX: D62 Acute posthemorrhagic anemia (principal); K25.4 Chronic or unspecified gastric ulcer with hemorrhage; N17.9 Acute kidney failure, unspecified; E87.1 Hypo-osmolality and hyponatremia; E11.9 Type 2 diabetes mellitus without complications; E78.5 Hyperlipidemia, unspecified; F20.9 Schizophrenia, unspecified; E66.01 Morbid (severe) obesity due to excess calories; D32.9 Benign neoplasm of meninges, unspecified; Z86.718 Personal history of other venous thrombosis and embolism; Z68.36 Body mass index [BMI] 36.0-36.9, adult; Z79.899 Other long term (current) drug therapy; Z79.1 Long term (current) use of non-steroidal anti-inflammatories (NSAID); Z90.49 Acquired absence of other specified parts of digestive tract; Z79.84 Long term (current) use of oral hypoglycemic drugs
CPT/HCPCS: 36415; 36416; 36430; 80053; 82274; 85025; 85610; 85730; 86850; 86900; 86901; 88305; 88312; 96374; C9113; J1650; J2001; J2270; J2405; J2704; P9016

== ENCOUNTER 2019-04-28 17:12 | Inpatient (IN) | payer MEDICARE ==
[2019-04-28 17:49] LABS: #Lymphocytes 0.7 thou/uL (1.20-3.40); #Monocytes 0.4 thou/uL (0.11-0.59); #Neutrophils 12.7 thou/uL (1.40-6.50); %Eosinophils 0.1 % (0.0-10.0); %Lymphocytes 4.9 % (21.0-51.0); %Monocytes 2.6 % (0.0-10.0); %Neutrophils 92.4 % (42.0-75.0); Hemoglobin 8.1 g/dL (12.0-16.0); Mean Corpuscular HGB CONC 33.1 g/dL (32.0-36.0); Mean Corpuscular Hemoglobin 30.4 pg (27.0-31.0); Mean Corpuscular Volume 91.8 fL (78.0-98.0); Mean Platelet Volume 6.8 fL (7.4-10.4); Platelet Count 396 thou/uL (130-400); RBC Distribution Width 15.8 % (11.5-14.5); Red Blood Cell (RBC) Count 2.65 mill/uL (4.20-5.40); White Blood Cell (WBC) Count 13.7 thou/uL (4.8-10.8)
[2019-04-28 18:14] LABS: ALT (SGPT) 18 U/L (8-55); AST (SGOT) 15 U/L (5-34); Alkaline Phosphatase 72 U/L (40-110); Anion Gap 12 mmol/L (10-20); BUN (Urea Nitrogen) 67 mg/dL (9.8-20.1); Bilirubin, Total 0.2 mg/dL (0.2-1.2); Calc. Creatinine Clearance 0 mL/min (70-130); Calcium 8.5 mg/dL (7.8-10.44); Carbon Dioxide 16 mmol/L (23-31); Chloride 92 mmol/L (98-107); Estimated GFR-MDRD 33; Globulin 2.3 g/dL (2.4-3.5); Glucose 236 mg/dL (80-115); Lipase 30 U/L (8-78); Potassium 6.4 mmol/L (3.5-5.1); Protein, Total 5.3 g/dL (6.0-8.3)
[2019-04-28 18:17] LABS: Sodium 114 mmol/L (136-145)
[2019-04-28] MEDS ORDERED: Acetaminophen 325 MG TAB ONE (18:24)
[2019-04-28 18:39] LABS: INR-International Normal Ratio 1.5; PTT 27.7 SEC (22.9-36.1); Prothrombin Time 18.4 SEC (12.0-14.7)
--- NOTE | 2019-04-28 18:46 | CT ---
Head CT without contrast 04/28/2019: COMPARISON: 04/01/2019 HISTORY: Headaches, worsening weakness TECHNIQUE: Axial CT imaging at 5 mm intervals from vertex through skull base without contrast FINDINGS: Imaged paranasal sinuses and mastoid air cells are well aerated. No displaced calvarial fra cture. No intracranial hemorrhage, midline shift, mass effect, or ventricular enlargement. IMPRESSION: No acute findings-stable head CT.
[2019-04-28] MEDS ORDERED: Hydrocortisone Sod Succ/PF 100 mg/2 ml Vial ONE (18:52)
--- NOTE | 2019-04-28 19:05 | CT ---
CT cervical spine without contrast: 04/28/2019 COMPARISON: 04/01/2019 HISTORY: 3 day history of headache and weakness, recent fall TECHNIQUE: Axial CT imaging at 2.5 mm intervals through the cervical spine without contrast. Coronal and sagittal reformatted imaging obtained. FINDINGS: The C1 ring is intact. The visualized lung apices are grossly unremarkable. There is a medialized retropharyngeal course of the distal common carotid artery bilaterally. The occipital condyles, the dens, the C1-2 articulation, the atlantoaxial interspace, the craniocervi lazaro junction, and the cervicothoracic junction demonstrate no acute findings. There is multilevel bilateral mid cervical spine facet hypertrophy, left greater than right. No displaced fracture or evidence of dislocation is seen. IMPRESSION: No acute findings.
[2019-04-28] MEDS ORDERED: Calcium Gluc 4.6 MEQ/10 ML (100 MG/ML) ONE (19:39)
[2019-04-28 20:36] LABS: #Lymphocytes 0.7 thou/uL (1.20-3.40); #Monocytes 0.3 thou/uL (0.11-0.59); %Basophils 0.1 % (0.0-1.0); %Eosinophils 0.2 % (0.0-10.0); %Lymphocytes 4.8 % (21.0-51.0); %Monocytes 2.3 % (0.0-10.0); %Neutrophils 92.7 % (42.0-75.0); Mean Corpuscular HGB CONC 32.8 g/dL (32.0-36.0); Mean Corpuscular Hemoglobin 30.6 pg (27.0-31.0); Mean Corpuscular Volume 93.4 fL (78.0-98.0); Mean Platelet Volume 6.8 fL (7.4-10.4); Platelet Count 349 thou/uL (130-400); Red Blood Cell (RBC) Count 2.61 mill/uL (4.20-5.40); White Blood Cell (WBC) Count 15.1 thou/uL (4.8-10.8)
[2019-04-28 21:06] LABS: ALT (SGPT) 16 U/L (8-55); AST (SGOT) 14 U/L (5-34); Albumin 2.8 g/dL (3.4-4.8); Alkaline Phosphatase 69 U/L (40-110); Anion Gap 11 mmol/L (10-20); BUN (Urea Nitrogen) 62 mg/dL (9.8-20.1); Bilirubin, Total 0.2 mg/dL (0.2-1.2); Calc. Creatinine Clearance 0 mL/min (70-130); Calcium 8.3 mg/dL (7.8-10.44); Carbon Dioxide 13 mmol/L (23-31); Chloride 99 mmol/L (98-107); Estimated GFR-MDRD 42; Globulin 2.2 g/dL (2.4-3.5); Glucose 199 mg/dL (80-115); Potassium 5.4 mmol/L (3.5-5.1)
[2019-04-28 21:12] LABS: Sodium 118 mmol/L (136-145)
[2019-04-28] MEDS ORDERED: HYDROcodone/Acetaminophen 5/325 mg Tablet ONE (21:24)
[2019-04-28 22:12] LABS: Hemoglobin 8.3 g/dL (12.0-16.0)
[2019-04-28] MEDS ORDERED: Heparin 25,000 units/D5W 500 ML IVPB SCH (22:45)
[2019-04-28 23:00] LABS: Magnesium 2.6 mg/dL (1.6-2.6); Phosphorus 3.8 mg/dL (2.3-4.7)
[2019-04-28 23:32] VITALS: BMI 29.2
[2019-04-28 23:33] LABS: Hemoglobin 8.4 g/dL (12.0-16.0); Platelet Count 390 thou/uL (130-400)
--- NOTE | 2019-04-28 23:37 | CT ---
CT of abdomen and pelvis: 04/28/2019 COMPARISON: 11/06/2016 HISTORY: Generalized abdominal pain TECHNIQUE: Axial CT imaging at 5 mm intervals from lung bases through pubic symphysis without contras t. Coronal reformatted imaging obtained. FINDINGS: Lack of contrast media limits assessment of the viscera, bowel, vascular structures, and fo r lymphadenopathy. The imaged lung bases demonstrate no acute findings. Tiny nodules are noted within both lung bases, s table. No free intraperitoneal air or fluid. Limited assessment of the liver, gallbladder, spleen, pancreas, and adrenal glands appears unremarkab le. The right kidney is absent. The left kidney appears unremarkable. Limited assessment of the bowel without oral contrast media demonstrates diverticulosis of the descen ding colon. No evidence for diverticulitis. The appendix appears unremarkable. There is severe degenerative change involving bilateral hips with prominent flattening of the femoral heads. There is multilevel lumbar spine posterior fusion hardware. No acute osseous abnormality. IMPRESSION: No acute findings. Chronic findings as described above..
[2019-04-28] MEDS ORDERED: Fioricet 325/50/40 mg Tablet PO PRN (23:57)
[2019-04-28] MEDS: Pantoprazole 40 MG VIAL IVP SCH (23:57)
[2019-04-28] MEDS: Acetaminophen 325 MG TAB PO PRN (23:58)
[2019-04-28] MEDS: Ondansetron PF 4 MG/2 ML Vial IVP PRN (23:58)
[2019-04-29] MEDS: Hydrocortisone Sod Succ/PF 100 mg/2 ml Vial IVP SCH ×3 (00:26→12:56)
[2019-04-29] MEDS: Morphine 4 MG/ML VIAL SLOW IVP PRN ×4 (00:26→21:16)
[2019-04-29] MEDS ORDERED: Sodium Bicarb 50 MEQ/50 ML VIAL IVP SCH ×2 (00:30→01:00)
[2019-04-29 00:34] LABS: Anion Gap 12 mmol/L (10-20); BUN (Urea Nitrogen) 63 mg/dL (9.8-20.1); Calc. Creatinine Clearance 51 mL/min (70-130); Calcium 8.2 mg/dL (7.8-10.44); Carbon Dioxide 11 mmol/L (23-31); Chloride 102 mmol/L (98-107); Estimated GFR-MDRD 44; Glucose 218 mg/dL (80-115); Potassium 5.8 mmol/L (3.5-5.1)
[2019-04-29 00:39] LABS: Sodium 119 mmol/L (136-145)
[2019-04-29 00:46] LABS: Actual Bicarbonate (HCO3a) 14.7 mEq/L (22-28); Base Excess (BEa) -11.4 mEq/L (-2.0 to +3.0); CO2 Tension 33.9 mmHg (35.0-45.0); Calcium, Ionized 1.26 mmol/L (1.12-1.30); Carboxyhemoglobin (COHb) 1.9 gm% (0.0-3.0); Hemoglobin (Hb) 8.2 g/dL (12.0-16.0); O2 Tension (PaO2) 89.5 mmHg (> 80.0); Potassium - ABG Lab 5.46 mmol/L (3.70-5.30); pH, Arterial 7.26 (7.35-7.45)
[2019-04-29 00:53] LABS: ALV-art Gradient 17.855 (0-20); Puncture Site LRA
--- NOTE | 2019-04-29 00:58 | CON ---
DATE OF CONSULTATION: REASON FOR CONSULTATION: Hyponatremia. HISTORY OF PRESENT ILLNESS: This is a 68-year-old female diagnosed with hypertension, hyperkalemia and hyponatremia, was found to have adrenal insufficiency and a sodium of 114, which had corrected to 118 and I was consulted after that. The patient denies headache, numbness, tingling, or weakness. Denies any nausea, vomiting, or chest pain. The patient has had abdominal pain on and off. The patient also has suffered from adrenal insufficiency. PAST MEDICAL HISTORY: Significant for hypertension, anemia, diabetes mellitus, multiple hospitalizations, obesity, radiculopathy, deep vein thrombosis, appendectomy, hysterectomy, orthopedic surgery. SOCIAL HISTORY: No alcohol or drug use. FAMILY HISTORY: Negative for ESRD. ALLERGIES: REVIEWED. HOME MEDICATIONS: Home medications list reviewed. Hospital medications list reviewed. REVIEW OF SYSTEMS: Fifteen-point review of system was performed and negative except for positives noted above. HEENT: Eyes intact, no diplopia. Ears: No hearing loss or earache. Nose: No discharge or bleeding. CHEST: No cough or phlegm. ABDOMEN: No nausea or vomiting. GENITOURINARY: No hematuria. No Long catheter. MUSCULOSKELETAL: No low back pain. No joint swelling or pain. NEUROLOGICAL: No syncope. No seizures. SKIN: No complaints of rash or itching. PSYCHIATRIC: No depression. CONSTITUTIONAL: No weight loss or loss of appetite. PHYSICAL EXAMINATION: GENERAL: The patient is awake and alert. VITAL SIGNS: Afebrile, pulse 75, breathing at 16, blood pressure was 115/70. HEENT: Head normocephalic and atraumatic. Eyes intact, no ulcers. Nose intact, no ulcers. Ears intact, no ulcers. NECK: Supple. No JVD. CHEST: Symmetrical and clear. CARDIOVASCULAR: Shows S1 and S2, no rub, no murmur. GASTROINTESTINAL: Abdomen is soft, bowel sounds positive. EXTREMITIES: Show no edema or ulcers. SKIN: Shows no rash or petechiae. MUSCULOSKELETAL: Shows no joint swelling or stiffness. GENITOURINARY: Shows no Long or CVA tenderness. NEUROLOGIC: Motor intact. Cranial nerves intact. LABORATORY DATA: Reviewed. ASSESSMENT AND PLAN: 1. Acute kidney injury with chronic kidney disease, most likely due to adrenal insufficiency. Agree with cortisone and plan. 2. Hyponatremia. Sodium has corrected appropriately. If the sodium increases higher than 122, we would recommend starting D5 water. 3. Hyperkalemia due to acidosis as well as adrenal insufficiency. Continue to monitor. 4. Metabolic acidosis. I would recommend GI workup. 5. Anemia, stable. 6. Medication based on GFR, appropriate. Job ID: [id number]
[2019-04-29] MEDS ORDERED: Melatonin 3 MG TAB PO SCH (01:45)
[2019-04-29 03:46] LABS: #Lymphocytes 0.7 thou/uL (1.20-3.40); #Monocytes 0.3 thou/uL (0.11-0.59); #Neutrophils 15.1 thou/uL (1.40-6.50); %Basophils 0.1 % (0.0-1.0); %Eosinophils 0.2 % (0.0-10.0); %Lymphocytes 4.6 % (21.0-51.0); %Monocytes 1.9 % (0.0-10.0); %Neutrophils 93.2 % (42.0-75.0); Hemoglobin 7.4 g/dL (12.0-16.0); Mean Corpuscular HGB CONC 33.4 g/dL (32.0-36.0); Mean Corpuscular Hemoglobin 30.2 pg (27.0-31.0); Mean Corpuscular Volume 90.3 fL (78.0-98.0); Platelet Count 337 thou/uL (130-400); RBC Distribution Width 15.9 % (11.5-14.5); Red Blood Cell (RBC) Count 2.46 mill/uL (4.20-5.40); White Blood Cell (WBC) Count 16.2 thou/uL (4.8-10.8)
[2019-04-29 03:52] LABS: Anion Gap 15 mmol/L (10-20); BUN (Urea Nitrogen) 67 mg/dL (9.8-20.1); Calc. Creatinine Clearance 54 mL/min (70-130); Calcium 8.1 mg/dL (7.8-10.44); Carbon Dioxide 14 mmol/L (23-31); Chloride 102 mmol/L (98-107); Estimated GFR-MDRD 46; Glucose 216 mg/dL (80-115); Potassium 5.8 mmol/L (3.5-5.1); Sodium 125 mmol/L (136-145)
[2019-04-29] MEDS ORDERED: Morphine 4 MG/ML VIAL SLOW IVP SCH (04:00)
[2019-04-29] MEDS ORDERED: Dextrose 5% in Water 1,000 ML IV SCH (04:15)
[2019-04-29] MEDS ORDERED: Dextrose 50% Abboject 50 ML SYRINGE SLOW IVP PRN (05:02)
[2019-04-29] MEDS ORDERED: Dextrose 5% in Water 1,000 ML IV PRN (05:02)
[2019-04-29] MEDS: HumaLOG 300 UNITS/3 ML VIAL SC PRN ×3 (05:31→20:16)
--- NOTE | 2019-04-29 06:03 | HP ---
CHIEF COMPLAINT: Abdominal pain and generalized weakness. HISTORY OF PRESENT ILLNESS: The patient is a 68-year-old female with past medical history of diabetes and recent DVT, who presents to the hospital with complaints of generalized weakness and abdominal pain. The patient stated that today she was walking, felt very weak and fell. She did hit her head. She did not pass out. I also called the patient's daughter who does not live with her, but states that she has just not been feeling well and has not been eating or drinking very much for the past few days and also because of the fall and the fact that she is on anticoagulation. She states that she has been having an ongoing abdominal pain for the past couple of weeks. She does not associate it with food or without food. She says her pain is all the time. Denies any diarrhea or nausea, vomiting. PAST MEDICAL HISTORY: Hypertension, diabetes type 2, morbid obesity, chronic anemia, anxiety, depression, schizophrenia, recent DVT diagnosed few weeks ago. Also peptic ulcer disease with acute blood-loss anemia. The patient's last inpatient psych admission was in 2004. PAST SURGICAL HISTORY: She has had appendectomy, total hysterectomy, and back surgery. ALLERGIES: SHE HAS NO KNOWN DRUG ALLERGIES. HOME MEDICATIONS: The daughter did not have the full list, going off from the list that she was recently discharged on, which is as of the following: She is on Colace 100 mg daily, iron 325 twice a day, Lasix 20 mg daily. She is supposed to be on Eliquis 5 mg twice a day, carvedilol 25 mg twice a day, lisinopril 20 mg daily, metformin 50 mg twice a day, omeprazole 40 mg daily, Actos 15 mg daily, Tizanidine 4 mg q.i.d., risperidone 2 mg at bedtime, and tramadol 50 mg q.i.d. as needed. SOCIAL HISTORY: She is a former smoker. Currently lives with her family. She is a full code. No alcohol use or drug use. The patient has been using a walker for ambulation. FAMILY HISTORY: Negative for heart disease. REVIEW OF SYSTEMS: All negative except for the ones mentioned above in the HPI. PHYSICAL EXAMINATION: VITAL SIGNS: Temperature of 92.7, heart rate 77, blood pressure 137/56, respiratory rate 14, sats 99% on room air. GENERAL: She is awake, alert, and oriented x3. She does not appear in any distress. CARDIOVASCULAR: S1, S2 present. No murmurs, rubs, or gallops. LUNGS: Clear to auscultation. No rhonchi or wheezes noted. ABDOMEN: Obese. Bowel sounds are present x2. She has pain upon palpation all over her abdomen area. No guarding noted. EXTREMITIES: She does have significant muscle wasting to her lower extremities. She does have trace lower extremity edema. SKIN: She has some scabs on her right and left knee area. NEUROVASCULAR: She is able to move all 4 of her extremities without any difficulties. LABORATORY DATA: WBCs of 16.2, hemoglobin initially of 8.1, hematocrit of 24.3, platelets of 396. Chemistry; initial sodium on evaluation was 114, potassium of 6.4, BUN of 67, creatinine 1.57, glucose was 236. Her anion gap was 12, bicarb was 16. She did have a CT of abdomen and pelvis noncontrast, it did not show any acute abnormalities. She also had a brain CT and a cervical spine CT. Cervical spine CT did not show any acute fractures and her brain CT did not show any acute abnormalities either. ASSESSMENT AND PLAN: The patient is a 68-year-old female, who presents to the hospital with complaints of generalized weakness, fall, and abdominal pain. 1. Adrenal insufficiency. When patient was in the ER, she was found to be significantly hypotensive. At this time, given her lab values and her symptoms, a cortisol level was checked in the ER prior to administration of Solu-Cortef. Her cortisol level was 1.30 prior to administering 100 mg of Solu-Cortef, which was done by the ER. This improved her blood pressure significantly. I will start her on some Solu-Cortef 50 mg every 6 hours for now. 2. Hyponatremia. She did receive 2 L of normal saline in the ER. Her repeat sodium improved from 114 to 118. I did speak with Nephrology. We did not start any additional fluids. It corrected on its own to 119 and then to 125. 3. Non-anion gap metabolic acidosis. She received 2 amps of bicarb. Her ABG indicated a pH of 7.26, pCO2 of 33.9, clearly defines most likely metabolic acidosis. 4. Chronic pain syndrome. The patient has chronic pain and she has received pain medications in the past for that. From her previous documentation, it seems that she was having significant falls and she was being weaned off Tylenol for this. I am not sure if all of this could be the cause of withdrawal from pain medications, which is a possibility. 5. Deep venous thrombosis. The patient has been on Eliquis. She has been evaluated by CV Surgery and she is not a candidate for filter. I have trended her H and H and she still continues to be trended down. She states that she has been having some dark stools, which has been going on since the past couple weeks. At this time, I will put her on subcu Lovenox 40. May consider getting CV Surgery back for possible IVC filter. 6. Recent peptic ulcer. We will continue the patient's Protonix. We will put patient's Protonix IV. Continue to monitor. 7. Deep venous thrombosis prophylaxis. The patient is already on subcu Lovenox. Job ID: [id number]
[2019-04-29] MEDS: Enoxaparin Sodium 40 MG/0.4 ML SYRINGE SC SCH (07:39)
[2019-04-29] MEDS: Pantoprazole 40 MG VIAL IVP SCH (07:39)
[2019-04-29] MEDS ORDERED: Prevnar 13-Val Conj/PF 0.5 ML SYRINGE IM ONE (09:00)
[2019-04-29] MEDS ORDERED: Sodium Bicarbonate 100 MEQ in Dextrose 5% in Water 1,000 ML IV SCH (10:30)
[2019-04-29 11:18] LABS: Actual Bicarbonate (HCO3a) 15.3 mEq/L (22-28); Base Excess (BEa) -9.5 mEq/L (-2.0 to +3.0); CO2 Tension 29.1 mmHg (35.0-45.0); Calcium, Ionized 1.21 mmol/L (1.12-1.30); Carboxyhemoglobin (COHb) 1.9 gm% (0.0-3.0); Hemoglobin (Hb) 7.8 g/dL (12.0-16.0); O2 Tension (PaO2) 100.4 mmHg (> 80.0); Potassium - ABG Lab 5.09 mmol/L (3.70-5.30); pH, Arterial 7.34 (7.35-7.45)
[2019-04-29 11:21] LABS: ALV-art Gradient 12.955 (0-20); Puncture Site RRAD
--- NOTE | 2019-04-29 13:09 | PDOC.HOSPP ---
- Subjective Encounter Date: 04/29/19 Encounter Time: 09:45 Subjective: awake, responds well in northern irish at bedside no sob or palpitations - Objective Vital Signs & Weight: Vital Signs (12 hours) Temp Pulse Ox 04/29/19 12:00 98.6 F 04/29/19 08:00 100 04/29/19 07:32 98.6 F 04/29/19 03:54 97.2 F L Weight Weight 160 lb 3.2 oz Most Recent Monitor Data Heart Rate from ECG 94 NIBP 162/87 NIBP BP-Mean 112 Respiration from ECG 19 SpO2 100 I&O: 04/28/19 04/29/19 04/30/19 06:59 06:59 06:59 Intake Total 200 Output Total 550 Balance -350 Result Diagrams: 04/29/19 09:19 04/29/19 03:28 Additional Labs: Accuchecks 04/29/19 05:25 POC Glucose 209 H Hospitalist ROS - Medication Medications: Active Medications Generic Name Dose Route Start Last Admin Trade Name Freq PRN Reason Stop Dose Admin Acetaminophen 650 mg 04/28/19 22:18 04/28/19 23:58 Tylenol PO 650 mg Q4H PRN Administration Headache/Fever/Mild Pain (1-3) Enoxaparin Sodium 40 mg 04/29/19 09:00 04/29/19 07:39 Lovenox SC 40 mg 0900 DIMA Administration Hydrocortisone Sodium Succinate 50 mg 04/28/19 23:59 04/29/19 12:56 Solu-Cortef IVP 50 mg Q6HR DIMA Administration Dextrose/Water 1,000 mls @ 50 mls/hr 04/29/19 04:15 04/29/19 05:20 D5w IV 1,000 mls .Q20H DIMA Administration Sodium Bicarbonate 100 meq/ 1,100 mls @ 100 mls/hr 04/29/19 10:30 04/29/19 12 :36 Dextrose/Water IV Not Given .Q11H [facility] Insulin Human Lispro 0 units 04/29/19 05:02 04/29/19 05:31 Humalog SC 3 unit .MILD SLIDING SCALE PRN Administration Mild Correctional Scale Morphine Sulfate 4 mg 04/28/19 23:58 04/29/19 07:39 Morphine SLOW IVP 4 mg Q6H PRN Administration Moderate to Severe Pain (4-10) Ondansetron HCl 4 mg 04/28/19 22:18 04/28/19 23:58 Zofran IVP 4 mg Q6H PRN Administration Nausea/Vomiting Pantoprazole Sodium 40 mg 04/28/19 21:00 04/29/19 07:39 Protonix IVP 40 mg Q12HR DIMA Administration - Exam General Appearance: awake alert Eye: PERRL, anicteric sclera ENT: no oropharyngeal lesions, dry oral mucosa Neck: supple, no JVD Heart: RRR, no murmur Respiratory: no wheezes, no rales Gastrointestinal: soft, non-tender, non-distended, normal bowel sounds Extremities: no cyanosis, no edema Neurological: cranial nerve grossly intact, no focal deficits Psychiatric: A&O x 3 Hosp A/P (1) Adrenal insufficiency Code(s): E27.40 - UNSPECIFIED ADRENOCORTICAL INSUFFICIENCY Status: Acute (2) H/O deep venous thrombosis Code(s): Z86.718 - PERSONAL HISTORY OF OTHER VENOUS THROMBOSIS AND EMBOLISM Status: Chronic (3) PUD (peptic ulcer disease) Code(s): K27.9 - PEPTIC ULC, SITE UNSP, UNSP AC OR CHR, W/O HEMOR OR PERF Status: Chronic (4) Chronic back pain Code(s): M54.9 - DORSALGIA, UNSPECIFIED; G89.29 - OTHER CHRONIC PAIN Status: Chronic Qualifiers: Back pain location: low back pain Back pain laterality: bilateral (5) Diabetes type 2, controlled Code(s): E11.9 - TYPE 2 DIABETES MELLITUS WITHOUT COMPLICATIONS Status: Chronic Qualifiers: Diabetes mellitus manager terminal insulin use: without alf use (6) Dyslipidemia Code(s): E78.5 - HYPERLIPIDEMIA, UNSPECIFIED Status: Chronic (7) Hypertension Code(s): I10 - ESSENTIAL (PRIMARY) HYPERTENSION Status: Chronic Qualifiers: (8) Iron deficiency anemia Code(s): D50.9 - IRON DEFICIENCY ANEMIA, UNSPECIFIED Status: Chronic (9) Schizophrenia Code(s): F20.9 - SCHIZOPHRENIA, UNSPECIFIED Status: Chronic Qualifiers: - Plan h/h is stable continue home dose of risperdal is on steroids, iv fluid, protonix and morphine prn may tx to medical floor not sure if can tolerate eliquis due to recurrent transfusions given, ?IVC filter has severe knee and hip osteoarthritis and cannot mobilize much due to pain
[2019-04-29 13:13] LABS: Anion Gap 15 mmol/L (10-20); BUN (Urea Nitrogen) 10 mg/dL (9.8-20.1); Calc. Creatinine Clearance 98 mL/min (70-130); Calcium 8.2 mg/dL (7.8-10.44); Carbon Dioxide 22 mmol/L (23-31); Chloride 99 mmol/L (98-107); Estimated GFR-MDRD Greater than 90; Glucose 372 mg/dL (80-115); Potassium 5.6 mmol/L (3.5-5.1); Sodium 124 mmol/L (136-145)
[2019-04-29 16:10] LABS: Hemoglobin 7.7 g/dL (12.0-16.0)
[2019-04-29] MEDS: Ferrous Sulfate 325 MG TAB PO SCH (16:34)
[2019-04-29] MEDS: glipiZIDE 10 MG TAB PO SCH (16:35)
[2019-04-29] MEDS ORDERED: Furosemide 20 MG TAB PO PRN (16:44)
[2019-04-29] MEDS: Carvedilol 25 MG TAB PO SCH (16:56)
[2019-04-29] MEDS: Acetaminophen 325 MG TAB PO PRN (20:04)
[2019-04-29] MEDS: metFORMIN 500 MG TAB PO SCH (20:08)
[2019-04-29] MEDS: hydrALAZINE 25 MG TAB PO SCH (20:08)
[2019-04-29] MEDS: risperiDONE 1 MG TAB PO SCH (20:09)
[2019-04-29] MEDS: Lisinopril 20 MG TAB PO SCH (20:09)
[2019-04-29] MEDS: tiZANidine HCl 4 MG TAB PO PRN (21:45)
[2019-04-29 23:39] LABS: Hemoglobin 6.1 g/dL (12.0-16.0)
[2019-04-30] MEDS ORDERED: Melatonin 3 MG TAB PO SCH ×2 (00:45→21:15)
--- NOTE | 2019-04-30 00:54 | PRG ---
DATE OF SERVICE: 04/29/2019 SUBJECTIVE: A 68-year-old female being seen for acute kidney injury. Patient denies any complaint and was feeling better. The patient was seen at 10:00 a.m. OBJECTIVE: GENERAL: On exam, the patient is awake and alert. VITAL SIGNS: Pulse 67, breathing 16, blood pressure 94/54. HEENT: Head normocephalic and atraumatic. Eyes intact, no ulcers. Nose intact, no ulcers. Ears intact, no ulcers. Neck: Supple. No JVD. Chest: Symmetrical and clear. Cardiovascular: Shows S1 and S2, no rub, no murmur. Gastrointestinal: Abdomen is soft, bowel sounds positive. Extremities: Show no edema or ulcers. Skin: Shows no rash or petechiae. Musculoskeletal: Shows no joint swelling or stiffness. Genitourinary: Shows no Long or CVA tenderness. Neurologic: Motor intact. Cranial nerves intact. LABORATORY DATA: Reviewed. ASSESSMENT: Acute kidney injury with chronic kidney disease, improved; hyperkalemia, improved. The patient's potassium on a blood gas was 5. Metabolic acidosis is improved. Hyponatremia, improved. No indication for dialysis at the time of dictation. The patient's anemia management per primary team. Job ID: [id number]
[2019-04-30 03:10] LABS: #Basophils 0.1 thou/uL (0.0-0.2); #Lymphocytes 1.3 thou/uL (1.20-3.40); #Monocytes 0.8 thou/uL (0.11-0.59); #Neutrophils 11.2 thou/uL (1.40-6.50); %Basophils 0.6 % (0.0-1.0); %Eosinophils 0.2 % (0.0-10.0); %Lymphocytes 9.4 % (21.0-51.0); %Monocytes 6.1 % (0.0-10.0); %Neutrophils 83.7 % (42.0-75.0); Hemoglobin 6.8 g/dL (12.0-16.0); Mean Corpuscular HGB CONC 33.4 g/dL (32.0-36.0); Mean Corpuscular Hemoglobin 30.4 pg (27.0-31.0); Mean Corpuscular Volume 90.8 fL (78.0-98.0); Mean Platelet Volume 6.7 fL (7.4-10.4); Platelet Count 378 thou/uL (130-400); RBC Distribution Width 16.2 % (11.5-14.5); Red Blood Cell (RBC) Count 2.25 mill/uL (4.20-5.40); White Blood Cell (WBC) Count 13.4 thou/uL (4.8-10.8)
[2019-04-30] MEDS: Morphine 4 MG/ML VIAL SLOW IVP PRN ×4 (03:37→22:40)
[2019-04-30 04:01] LABS: Anion Gap 11 mmol/L (10-20); BUN (Urea Nitrogen) 51 mg/dL (9.8-20.1); Calc. Creatinine Clearance 60 mL/min (70-130); Calcium 8.5 mg/dL (7.8-10.44); Carbon Dioxide 18 mmol/L (23-31); Chloride 104 mmol/L (98-107); Estimated GFR-MDRD 52; Glucose 128 mg/dL (80-115); Potassium 4.4 mmol/L (3.5-5.1); Sodium 129 mmol/L (136-145)
[2019-04-30] MEDS ORDERED: predniSONE 20 MG TAB PO SCH (08:00)
[2019-04-30] MEDS: Pioglitazone HCl 15 MG TAB PO SCH (08:32)
[2019-04-30] MEDS: hydrALAZINE 25 MG TAB PO SCH ×3 (08:32→20:34)
[2019-04-30] MEDS: glipiZIDE 10 MG TAB PO SCH ×2 (08:32→16:28)
[2019-04-30] MEDS: Ferrous Sulfate 325 MG TAB PO SCH ×2 (08:32→16:28)
[2019-04-30] MEDS: Carvedilol 25 MG TAB PO SCH ×2 (08:32→16:28)
[2019-04-30] MEDS: Acetaminophen 325 MG TAB PO PRN ×3 (08:33→20:35)
[2019-04-30] MEDS: Magnesium Oxide 400 MG TAB PO SCH (08:33)
[2019-04-30] MEDS: metFORMIN 500 MG TAB PO SCH ×2 (08:33→20:36)
[2019-04-30] MEDS: Docusate 100 MG CAP PO SCH (08:33)
[2019-04-30 09:59] LABS: Prothrombin Time 13.4 SEC (12.0-14.7)
[2019-04-30] MEDS: Enoxaparin Sodium 40 MG/0.4 ML SYRINGE SC SCH (10:02)
[2019-04-30 10:24] LABS: PTT 21.3 SEC (22.9-36.1)
--- NOTE | 2019-04-30 10:55 | CON ---
DATE OF CONSULTATION: 04/30/2019 REASON FOR CONSULTATION: Anemia and melena. HISTORY OF PRESENT ILLNESS: Perla Bagley is a 68-year-old woman, who primarily speaks Thai, seen with the assistance of tube skiver. She has a history of morbid obesity, diabetes, and chronic anemia as well as adrenal insufficiency. She previously saw Dr. Hicks for GI. She has had multiple endoscopies through the years for chronic anemia including capsule endoscopies, colonoscopies, and upper endoscopies, which have all been essentially negative. She was recently diagnosed with a DVT and put on Eliquis 11 days ago on 04/19/2019. She was seen by Dr. Silva in hospital consultation for worsening anemia and melena. He performed EGD on that date and this demonstrated a 1.5-cm pre-pyloric ulcer. This was clean based. No endoscopic therapy was applied. He had recommended twice daily proton-pump inhibitor. The patient was restarted on her Eliquis afterward. She reports taking omeprazole once daily. She also takes oral iron. She says her stools have been very black in color prior to admission. Her last bowel movement was the day before yesterday however, but she has been nauseated, having very poor appetite, and generalized abdominal pain. She was readmitted to the hospital early yesterday with hyponatremia and adrenal insufficiency with acute kidney injury. She has been receiving IV steroids. Sodium level has improved up to 129. Her abdominal discomfort and poor appetite have persisted. Admission hemoglobin was 8.1, this fluctuated up to 9.0, but this morning, it is down to 6.8. She has elevated BUN out of proportion to creatinine with BUN 51, creatinine 1.05, and this morning, she was mildly tachycardic with pulse up to 106. So, there is concern for possible recurrent bleeding. Eliquis was held on admission and she received Lovenox yesterday, but Lovenox was held this morning. REVIEW OF SYSTEMS: Full review of systems including constitutional, head, eyes, ears, nose, throat, GI, , cardiovascular, respiratory, musculoskeletal, neurologic systems is negative except as noted in the HPI. PAST MEDICAL HISTORY: 1. Hypertension. 2. Chronic anemia. 3. Diabetes. 4. Morbid obesity. 5. Radiculopathy. 6. DVT. 7. Back surgery. 8. Appendectomy. 9. Hysterectomy. 10. Adrenal insufficiency. 11. Schizophrenia. 12. Gastric ulcer, demonstrated on EGD 04/19/2019. SOCIAL HISTORY: Former smoker. No alcohol or drug use. FAMILY HISTORY: Noncontributory. ALLERGIES: NO KNOWN DRUG ALLERGIES. OUTPATIENT MEDICATIONS: 1. Colace. 2. Iron 325 mg twice daily. 3. Eliquis 5 mg twice daily. 4. Omeprazole 40 mg daily. 5. Lasix. 6. Coreg. 7. Lisinopril. 8. Metformin. 9. Actos. 10. Tizanidine. 11. Risperidone. 12. Tramadol. PHYSICAL EXAMINATION: VITAL SIGNS: Temperature 97.9, pulse 106, blood pressure 138/77, and 100% oxygen saturation on room air. GENERAL: Morbidly obese 68-year-old woman, lying in bed comfortably, in no distress. SKIN: No jaundice. No rashes were palpable. EYES: No scleral icterus. Extraocular movements intact. ENT: Mucous membranes moist. No oral lesions. LYMPH: No submandibular or supraclavicular lymphadenopathy. THYROID: Nontender to palpation. HEART: Regular. Tachycardia. LUNGS: Clear to auscultation bilaterally. ABDOMEN: Nondistended. Bowel sounds are present. Soft. Tender to palpation in the mid abdomen, upper and lower abdomen, but no guarding or rebound tenderness. EXTREMITIES: No peripheral edema. VESSELS: Radial pulses 2+ bilaterally. NEURO: Cranial nerves 2 through 12 intact bilaterally. No focal deficits. LABORATORY STUDIES: Hemoglobin 6.8, MCV 90.8, WBC 13.4, platelets 378. INR 1.5 on admission. BUN is 51, creatinine is 1.05, sodium is 129, potassium is 4.4. Troponin negative. Lipase 30. LFTs normal. IMAGING STUDIES: CT of the C-spine shows no acute abnormalities. Brain CT shows no acute abnormalities. CT of the abdomen and pelvis shows no acute abnormalities. ASSESSMENT AND PLAN: 1. [id number] anemia. 2. Melena. 3. Gastric ulcer, visualized on EGD recently on 04/19/2019. The patient has a known gastric ulcer, and has continued once daily PPI over the past week and a half since it was visualized. Even so, given the acute decline in hemoglobin over the past day, her elevated BUN to creatinine ratio, and report of dark stools, there is some concern for possible rebleeding of this ulceration. Her Lovenox has been held this morning. We are going to proceed with EGD to re-examine the ulcer site, apply endoscopic therapy if needed. For now, continue the IV PPI. Agree with unit of RBC transfusion already in process. Thank you for the consultation. Further recommendations following EGD. Job ID: [id number]
[2019-04-30] MEDS ORDERED: Lidocaine 1% PF 5 ML VIAL ONE (10:57)
[2019-04-30] MEDS ORDERED: PROPOFOL 200 MG/20 ML VIAL ONE (10:57)
--- NOTE | 2019-04-30 12:20 | PDOC.HOSPP ---
- Subjective Encounter Date: 04/30/19 Encounter Time: 08:45 Subjective: has epigastric pain, no nausea ate her breakfast this am at bedside - Objective Vital Signs & Weight: Vital Signs (12 hours) Temp Pulse Pulse Resp BP BP BP 04/30/19 11:27 98.6 F 94 16 149/77 H 04/30/19 10:05 98.5 F 98 16 122/69 04/30/19 09:48 98.7 F 98 16 128/68 04/30/19 08:32 106 H 138/77 04/30/19 07:23 97.9 F 106 H 14 138/77 04/30/19 03:33 97.8 F 80 16 143/74 H 04/30/19 01:36 68 BP Pulse Ox 04/30/19 11:27 100 04/30/19 10:05 100 04/30/19 09:48 100 04/30/19 08:32 04/30/19 07:23 100 04/30/19 03:33 100 04/30/19 01:36 125/65 Weight Weight 158 lb 8 oz Most Recent Monitor Data Heart Rate from ECG 94 NIBP 192/108 NIBP BP-Mean 136 Respiration from ECG 20 SpO2 100 I&O: 04/29/19 04/30/19 05/01/19 06:59 06:59 06:59 Intake Total 200 1880 0 Output Total 550 2250 Balance -350 -370 0 Result Diagrams: 04/30/19 03:03 04/30/19 03:03 Additional Labs: Accuchecks 04/30/19 04/29/19 04/29/19 05:45 20:10 16:22 POC Glucose 134 H 231 H 341 H Hospitalist ROS - Medication Medications: Active Medications Generic Name Dose Route Start Last Admin Trade Name Freq PRN Reason Stop Dose Admin Acetaminophen 650 mg 04/28/19 22:18 04/30/19 08:33 Tylenol PO 650 mg Q4H PRN Administration Headache/Fever/Mild Pain (1-3) Carvedilol 25 mg 04/29/19 17:00 04/30/19 08:32 Coreg PO 25 mg BID-WM DIMA Administration Docusate Sodium 100 mg 04/30/19 09:00 04/30/19 08:33 Colace PO 100 mg DAILY DIMA Administration Enoxaparin Sodium 40 mg 04/29/19 09:00 04/30/19 10:02 Lovenox SC Not Given 0900 DIMA Ferrous Sulfate 325 mg 04/29/19 17:00 04/30/19 08:32 Feosol PO 325 mg BID-WM DIMA Administration Glipizide 10 mg 04/29/19 16:30 04/30/19 08:32 Glucotrol PO 10 mg BID-AC DIMA Administration Hydralazine HCl 50 mg 04/29/19 21:00 04/30/19 08:32 Apresoline PO 50 mg TID DIMA Administration Insulin Human Lispro 0 units 04/29/19 05:02 04/29/19 20:16 Humalog SC 3 unit .MILD SLIDING SCALE PRN Administration Mild Correctional Scale Lisinopril 20 mg 04/29/19 21:00 04/29/19 20:09 Zestril PO 20 mg HS DIMA Administration Magnesium Oxide 400 mg 04/30/19 09:00 04/30/19 08:33 Magnesium Oxide PO 400 mg DAILY DIMA Administration Metformin HCl 500 mg 04/29/19 21:00 04/30/19 08:33 Glucophage PO 500 mg BID DIMA Administration Morphine Sulfate 4 mg 04/28/19 23:58 04/30/19 09:39 Morphine SLOW IVP 4 mg Q6H PRN Administration Moderate to Severe Pain (4-10) Ondansetron HCl 4 mg 04/28/19 22:18 04/28/19 23:58 Zofran IVP 4 mg Q6H PRN Administration Nausea/Vomiting Pantoprazole Sodium 40 mg 04/29/19 21:00 04/30/19 08:33 Protonix PO 40 mg BID DIMA Administration Pioglitazone HCl 15 mg 04/30/19 09:00 04/30/19 08:32 Actos PO 15 mg DAILY DIMA Administration Prednisone 20 mg 04/30/19 08:00 04/30/19 08:32 Prednisone PO 20 mg QAM-WM DIMA Administration Risperidone 2 mg 04/29/19 21:00 04/29/19 20:09 Risperidone PO 2 mg HS DIMA Administration Tizanidine HCl 4 mg 04/29/19 13:11 04/29/19 21:45 Zanaflex PO 4 mg QID PRN Administration Muscle Spasm - Exam General Appearance: awake alert Eye: PERRL, anicteric sclera ENT: no oropharyngeal lesions, moist mucosa Neck: supple, no JVD Heart: RRR, no murmur Respiratory: no wheezes, no rales Gastrointestinal: soft, non-distended, normal bowel sounds, no guarding, no rigidity Extremities: no cyanosis, no edema Neurological: cranial nerve grossly intact, no focal deficits Psychiatric: normal affect, A&O x 3 Hosp A/P (1) Acute blood loss anemia Code(s): D62 - ACUTE POSTHEMORRHAGIC ANEMIA Status: Acute (2) Melena Code(s): K92.1 - MELENA Status: Acute (3) Adrenal insufficiency Code(s): E27.40 - UNSPECIFIED ADRENOCORTICAL INSUFFICIENCY Status: Resolved (4) H/O deep venous thrombosis Code(s): Z86.718 - PERSONAL HISTORY OF OTHER VENOUS THROMBOSIS AND EMBOLISM Status: Chronic (5) PUD (peptic ulcer disease) Code(s): K27.9 - PEPTIC ULC, SITE UNSP, UNSP AC OR CHR, W/O HEMOR OR PERF Status: Chronic (6) Chronic back pain Code(s): M54.9 - DORSALGIA, UNSPECIFIED; G89.29 - OTHER CHRONIC PAIN Status: Chronic Qualifiers: Back pain location: low back pain Back pain laterality: bilateral (7) Diabetes type 2, controlled Code(s): E11.9 - TYPE 2 DIABETES MELLITUS WITHOUT COMPLICATIONS Status: Chronic Qualifiers: Diabetes mellitus nursing home insulin use: without exterminator helper use (8) Dyslipidemia Code(s): E78.5 - HYPERLIPIDEMIA, UNSPECIFIED Status: Chronic (9) Hypertension Code(s): I10 - ESSENTIAL (PRIMARY) HYPERTENSION Status: Chronic Qualifiers: (10) Iron deficiency anemia Code(s): D50.9 - IRON DEFICIENCY ANEMIA, UNSPECIFIED Status: Chronic (11) Schizophrenia Code(s): F20.9 - SCHIZOPHRENIA, UNSPECIFIED Status: Chronic Qualifiers: - Plan h/h dropped this am, will transfuse 1 u prbc, keep her npo, GI consultation. continue home dose of risperdal is on steroids, iv fluid, protonix and morphine prn not sure if can tolerate eliquis, ?IVC filter has severe knee and hip osteoarthritis and cannot mobilize much due to pain
[2019-04-30] MEDS: Sodium Chloride 0.9% 1,000 ML IV SCH ×2 (13:28→17:34)
--- NOTE | 2019-04-30 15:01 | PRG ---
DATE OF SERVICE: 04/30/2019 SUBJECTIVE: A 68-year-old female, being seen for acute kidney injury. The patient denies any nausea, vomiting, or chest pain. OBJECTIVE: GENERAL: The patient is awake and alert. VITAL SIGNS: Afebrile, pulse 81, breathing at 16, blood pressure 149/77. HEENT: Head normocephalic and atraumatic. Eyes intact, no ulcers. Nose intact, no ulcers. Ears intact, no ulcers. NECK: Supple. No JVD. CHEST: Symmetrical and clear. CARDIOVASCULAR: Shows S1 and S2, no rub, no murmur. GASTROINTESTINAL: Abdomen is soft, bowel sounds positive. EXTREMITIES: Show no edema or ulcers. SKIN: Shows no rash or petechiae. MUSCULOSKELETAL: Shows no joint swelling or stiffness. GENITOURINARY: Shows no Long or CVA tenderness. NEUROLOGIC: Motor intact. Cranial nerves intact. LABORATORY DATA: Reviewed. ASSESSMENT AND PLAN: 1. Acute kidney injury, stable. 2. Hypertension, stable. 3. Metabolic acidosis, improved. 4. Hyponatremia, improved. 5. Hyperkalemia, improved. I will sign off on this patient. Please reconsult as needed. Job ID: [id number]
[2019-04-30] MEDS ORDERED: Promethazine HCl 25 MG/ML VIAL IM PRN (15:08)
[2019-04-30] MEDS ORDERED: Meperidine HCl/PF 25 MG/ML VIAL SLOW IVP PRN (15:08)
[2019-04-30] MEDS ORDERED: Promethazine HCl 25 MG/ML VIAL SLOW IVP PRN (15:08)
[2019-04-30] MEDS ORDERED: Ondansetron HCl/PF 4 MG/2 ML Vial IVP PRN (15:08)
--- NOTE | 2019-04-30 16:19 | OP ---
DATE OF PROCEDURE: 04/30/2019 SHEET METAL WELDER SURGEON: None. PROCEDURE PERFORMED: Esophagogastroduodenoscopy, diagnostic. INDICATIONS: 1. Melena. 2. Acute on chronic anemia. 3. History of gastric ulcer, seen on recent EGD, 04/19/2019. MEDICATIONS: See Anesthesia record. FINDINGS: After discussion of the risks, benefits, and alternatives of the procedure, informed consent was obtained and witnessed. Pre-endoscopic cardiopulmonary examination was satisfactory. Time-out was performed before sedation was achieved. Sedation was achieved with Anesthesia assistance in the endoscopy unit. A Pentax adult upper endoscope was placed into the oropharynx and passed through the cricopharyngeus under direct visualization. The proximal and mid esophageal mucosa appeared normal. In the distal esophagus, there are adherent white plaques, which do not scrape off with the endoscope and are suspicious for probable candidiasis. Biopsies were obtained from this area to rule out Giovanna. The endoscope was advanced into the stomach. Forward and retroflexed views of the entire gastric mucosa were obtained. There was no evidence of any old blood or active bleeding in the stomach. The gastric fundus and body appeared normal. In the antrum in the pre-pyloric area, there was a large clean based gastric ulcer. This does appear larger in size than the images I visualized from her recent endoscopy; however, there was no bleeding, no visible vessel in this area. I advanced the scope beyond the pylorus and into the duodenal bulb. There are multiple smaller and medium-sized ulcerations within the duodenal bulb. These are all clean based as well. There was some friability in the area and there was an area of very slow mild oozing around the edge of one of these ulcerations of the duodenal sweep. However, there are no visible vessels, nothing to endoscopically treat. The upper endoscope was completely withdrawn and the patient allowed to recover. The patient tolerated the procedure well. There were no immediate postprocedure complications. IMPRESSION: 1. Large clean based pre-pyloric ulcer. 2. Multiple small to medium sized ulcers in the proximal duodenum and duodenal sweep, with some friability and mild oozing around the edges, but no visible vessel, nothing to treat. 3. Distal esophageal plaques, suspicious for candidiasis, biopsied. RECOMMENDATIONS: 1. IV proton pump inhibitor every 12 hours. 2. Get a gastrin level in the morning. Note that recent gastric biopsies were negative for H pylori. 3. I would hold anticoagulation if possible. 4. Trend hemoglobin and hematocrit, transfuse as needed. 5. Follow up results of esophageal biopsies. If positive, treat with fluconazole. Job ID: [id number]
[2019-04-30] MEDS: HumaLOG 300 UNITS/3 ML VIAL SC PRN ×2 (16:34→21:24)
[2019-04-30 18:36] LABS: HBCM Index 0.05 S/CO (0-0.79); HBSAg Index 0.17 S/CO (0-0.99); HIV (1/2) Antibody/Antigen Non-Reactive (NonReactive); HIV 1/2 INDEX 0.12 S/CO (<1.00); Hep A IgM AB Non-Reactive (NonReactive); Hep A IgM S/CO 0.11 S/CO (0-0.79); Hep B Surf Ag Non-Reactive S/CO (NonReactive); Hep C IgG Ab Non-Reactive (NonReactive); Hep C Index 0.09 S/CO (0-0.79); Hepatitis B Core IgM Abs Non-Reactive (NonReactive)
[2019-04-30] MEDS: risperiDONE 1 MG TAB PO SCH (20:34)
[2019-04-30] MEDS: Lisinopril 20 MG TAB PO SCH (20:35)
[2019-04-30] MEDS: Pantoprazole 40 MG VIAL IVP SCH (20:49)
[2019-05-01] MEDS: Morphine 4 MG/ML VIAL SLOW IVP PRN ×2 (03:57→17:56)
[2019-05-01 07:01] LABS: Anion Gap 12 mmol/L (10-20); BUN (Urea Nitrogen) 27 mg/dL (9.8-20.1); Calc. Creatinine Clearance 76 mL/min (70-130); Calcium 8.8 mg/dL (7.8-10.44); Carbon Dioxide 19 mmol/L (23-31); Chloride 107 mmol/L (98-107); Estimated GFR-MDRD 70; Glucose 94 mg/dL (80-115); Potassium 4.8 mmol/L (3.5-5.1); Sodium 133 mmol/L (136-145)
[2019-05-01 07:14] LABS: #Basophils 0.1 thou/uL (0.0-0.2); #Eosinphils 0.1 thou/uL (0.0-0.7); #Lymphocytes 1.7 thou/uL (1.20-3.40); #Monocytes 0.9 thou/uL (0.11-0.59); #Neutrophils 7.8 thou/uL (1.40-6.50); %Basophils 0.8 % (0.0-1.0); %Eosinophils 0.6 % (0.0-10.0); %Lymphocytes 16.3 % (21.0-51.0); %Monocytes 8.2 % (0.0-10.0); Hemoglobin 9.2 g/dL (12.0-16.0); Mean Corpuscular HGB CONC 32.9 g/dL (32.0-36.0); Mean Corpuscular Hemoglobin 29.5 pg (27.0-31.0); Mean Corpuscular Volume 89.8 fL (78.0-98.0); Mean Platelet Volume 6.4 fL (7.4-10.4); Platelet Count 276 thou/uL (130-400); RBC Distribution Width 17.2 % (11.5-14.5); White Blood Cell (WBC) Count 10.5 thou/uL (4.8-10.8)
[2019-05-01] MEDS: glipiZIDE 10 MG TAB PO SCH ×2 (07:24→15:50)
--- NOTE | 2019-05-01 08:11 | ULT ---
BILATERAL LOWER EXTREMITY DOPPLER VENOUS ULTRASOUND: Date: 05/01/2019 INDICATION: Bilateral lower extremity pain. COMPARISON: Prior Doppler venous ultrasound of both lower extremities dated 04/02/2019. TECHNIQUE: Hicks scale, color Doppler, and vascular duplex with spectral analysis was performed of the deep venou s structures of the bilateral lower extremities. The common femoral vein, superficial femoral vein, p roximal greater saphenous vein, proximal greater profunda vein, popliteal, and posterior tibial veins were assessed. FINDINGS: Normal compression, flow, and augmentation was seen within the deep venous structures of both lower e xtremities. IMPRESSION: No evidence of deep venous thrombosis within the bilateral lower extremities. Partially occlusive thr ombus previously seen within the distal right superficial femoral vein is no longer identified. POS: BH
[2019-05-01] MEDS: Docusate 100 MG CAP PO SCH (08:25)
[2019-05-01] MEDS: Fluconazole 100 MG TAB PO SCH (08:29)
[2019-05-01] MEDS: Magnesium Oxide 400 MG TAB PO SCH (08:29)
[2019-05-01] MEDS: Pantoprazole 40 MG VIAL IVP SCH ×2 (08:29→21:24)
[2019-05-01] MEDS: Carvedilol 25 MG TAB PO SCH ×2 (08:30→17:51)
[2019-05-01] MEDS: hydrALAZINE 25 MG TAB PO SCH ×3 (08:30→20:53)
[2019-05-01] MEDS: Ferrous Sulfate 325 MG TAB PO SCH ×2 (08:30→17:51)
[2019-05-01] MEDS: Pioglitazone HCl 15 MG TAB PO SCH (08:30)
[2019-05-01] MEDS: metFORMIN 500 MG TAB PO SCH ×2 (08:30→20:55)
[2019-05-01] MEDS: Enoxaparin Sodium 40 MG/0.4 ML SYRINGE SC SCH (08:30)
--- NOTE | 2019-05-01 12:14 | PDOC.HOSPP ---
- Subjective Encounter Date: 05/01/19 Encounter Time: 10:15 Subjective: no bleeding per rectum or sob feels better - Objective Vital Signs & Weight: Vital Signs (12 hours) Temp Pulse Resp BP BP BP Pulse Ox 05/01/19 11:30 98.5 F 95 12 108/67 100 05/01/19 10:03 128/76 05/01/19 07:25 98.4 F 100 12 172/78 H 100 05/01/19 04:21 98.6 F 98 16 172/78 H 100 Weight Weight 158 lb Most Recent Monitor Data Heart Rate from ECG 94 NIBP 192/108 NIBP BP-Mean 136 Respiration from ECG 20 SpO2 100 I&O: 04/30/19 05/01/19 05/02/19 06:59 06:59 06:59 Intake Total 1880 2030 Output Total 2250 3100 Balance -370 -1070 Result Diagrams: 05/01/19 06:28 05/01/19 06:28 Additional Labs: Accuchecks 05/01/19 05/01/19 04/30/19 10:19 05:35 20:47 POC Glucose 213 H 106 301 H 04/30/19 04/30/19 16:18 11:18 POC Glucose 255 H 201 H Hospitalist ROS - Medication Medications: Active Medications Generic Name Dose Route Start Last Admin Trade Name Freq PRN Reason Stop Dose Admin Acetaminophen 650 mg 04/28/19 22:18 04/30/19 20:35 Tylenol PO 650 mg Q4H PRN Administration Headache/Fever/Mild Pain (1-3) Carvedilol 25 mg 04/29/19 17:00 05/01/19 08:30 Coreg PO 25 mg BID-WM DIMA Administration Docusate Sodium 100 mg 04/30/19 09:00 05/01/19 08:25 Colace PO 100 mg DAILY DIMA Administration Enoxaparin Sodium 40 mg 04/29/19 09:00 05/01/19 08:30 Lovenox SC 40 mg 0900 DIMA Administration Ferrous Sulfate 325 mg 04/29/19 17:00 05/01/19 08:30 Feosol PO 325 mg BID-WM DIMA Administration Fluconazole 200 mg 05/01/19 09:00 05/01/19 08:29 Diflucan PO 200 mg DAILY DIMA Administration Glipizide 10 mg 04/29/19 16:30 05/01/19 07:24 Glucotrol PO 10 mg BID-AC DIMA Administration Hydralazine HCl 50 mg 04/29/19 21:00 05/01/19 08:30 Apresoline PO 50 mg TID DIMA Administration Sodium Chloride 1,000 mls @ 60 mls/hr 04/30/19 11:15 04/30/19 17:34 Normal Saline 0.9% IV 1,000 mls .[id number] DIMA Administration Insulin Human Lispro 0 units 04/29/19 05:02 04/30/19 21:24 Humalog SC 5 unit .MILD SLIDING SCALE PRN Administration Mild Correctional Scale Lisinopril 20 mg 04/29/19 21:00 04/30/19 20:35 Zestril PO 20 mg HS DIMA Administration Magnesium Oxide 400 mg 04/30/19 09:00 05/01/19 08:29 Magnesium Oxide PO 400 mg DAILY DIMA Administration Metformin HCl 500 mg 04/29/19 21:00 05/01/19 08:30 Glucophage PO 500 mg BID DIMA Administration Morphine Sulfate 4 mg 04/28/19 23:58 05/01/19 03:57 Morphine SLOW IVP 4 mg Q6H PRN Administration Moderate to Severe Pain (4-10) Ondansetron HCl 4 mg 04/28/19 22:18 04/28/19 23:58 Zofran IVP 4 mg Q6H PRN Administration Nausea/Vomiting Pantoprazole Sodium 40 mg 04/29/19 21:00 05/01/19 08:29 Protonix PO Not Given BID [facility] Pantoprazole Sodium 40 mg 04/30/19 21:00 05/01/19 08:29 Protonix IVP 40 mg Q12HR DIMA Administration Pioglitazone HCl 15 mg 04/30/19 09:00 05/01/19 08:30 Actos PO 15 mg DAILY DIMA Administration Risperidone 2 mg 04/29/19 21:00 04/30/19 20:34 Risperidone PO 2 mg HS DIMA Administration Tizanidine HCl 4 mg 04/29/19 13:11 04/29/19 21:45 Zanaflex PO 4 mg QID PRN Administration Muscle Spasm - Exam General Appearance: awake alert Eye: PERRL, anicteric sclera ENT: no oropharyngeal lesions, moist mucosa Neck: supple, no JVD Heart: RRR, no murmur Respiratory: no wheezes, no rales Gastrointestinal: soft, non-tender, non-distended, normal bowel sounds Extremities: no cyanosis, no edema Neurological: cranial nerve grossly intact, no focal deficits Psychiatric: A&O x 3 Hosp A/P (1) Acute blood loss anemia Code(s): D62 - ACUTE POSTHEMORRHAGIC ANEMIA Status: Acute (2) Melena Code(s): K92.1 - MELENA Status: Acute (3) Adrenal insufficiency Code(s): E27.40 - UNSPECIFIED ADRENOCORTICAL INSUFFICIENCY Status: Resolved (4) H/O deep venous thrombosis Code(s): Z86.718 - PERSONAL HISTORY OF OTHER VENOUS THROMBOSIS AND EMBOLISM Status: Resolved (5) PUD (peptic ulcer disease) Code(s): K27.9 - PEPTIC ULC, SITE UNSP, UNSP AC OR CHR, W/O HEMOR OR PERF Status: Chronic (6) Chronic back pain Code(s): M54.9 - DORSALGIA, UNSPECIFIED; G89.29 - OTHER CHRONIC PAIN Status: Chronic Qualifiers: Back pain location: low back pain Back pain laterality: bilateral (7) Diabetes type 2, controlled Code(s): E11.9 - TYPE 2 DIABETES MELLITUS WITHOUT COMPLICATIONS Status: Chronic Qualifiers: Diabetes mellitus meterman insulin use: without mcc use (8) Dyslipidemia Code(s): E78.5 - HYPERLIPIDEMIA, UNSPECIFIED Status: Chronic (9) Hypertension Code(s): I10 - ESSENTIAL (PRIMARY) HYPERTENSION Status: Chronic Qualifiers: (10) Iron deficiency anemia Code(s): D50.9 - IRON DEFICIENCY ANEMIA, UNSPECIFIED Status: Chronic (11) Schizophrenia Code(s): F20.9 - SCHIZOPHRENIA, UNSPECIFIED Status: Chronic Qualifiers: - Plan EGD showed multiple ulcers, none actively bleeding, also had findings s/o esophageal candidiasis. hemoglobin stable around 9g this am. continue home dose of risperdal protonix bid, diflucan, morphine prn usg venous doppler shows clearing of prior non occlusive thrombus. has severe knee and hip osteoarthritis and cannot mobilize much due to pain await esophageal biopsy, likely dc plan in am HIV, ac hep panel is non reactive d/w patient and daughter over phone
[2019-05-01] MEDS: HumaLOG 300 UNITS/3 ML VIAL SC PRN ×2 (12:54→20:57)
--- NOTE | 2019-05-01 17:54 | PRG ---
DATE OF SERVICE: 05/01/2019 SUBJECTIVE: The patient's history is obtained through an metalworker from the iPad. She reports having abdominal pain still, but no nausea or vomiting. She reports having black stool, but nursing staff has not seen any bowel movement today. There is no nausea or vomiting. OBJECTIVE: VITAL SIGNS: Temperature is 98.5, blood pressure 147/75, and pulse of 92. GENERAL: She is alert, does not appear in any distress. HEENT: Anicteric sclerae. NECK: Supple. CV: Normal S1 and S2. Regular rate and rhythm. CHEST: Exam shows breath sounds. ABDOMEN: Protuberant, but soft. No tenderness to palpation. EXTREMITIES: Does not show any edema. LABORATORY DATA: WBC is 10.5, hemoglobin 9.2 (up from the lowest of 6.1, status post 1 unit RBC transfusion), and platelet count of 276. Electrolytes within normal range, creatinine 0.82. Serum gastrin, pending. Bilateral lower extremity Doppler venous ultrasound is negative for any DVT. ASSESSMENT: 1. Peptic ulcer disease with prepyloric ulcer and multiple smaller duodenal ulcers without any active bleeding. The prepyloric ulcer is larger than last seen 2 weeks ago with new duodenal ulcers. The patient denies taking any further Advil at home. No signs of bleeding on the endoscopy. 2. History of deep venous thrombosis, negative venous Doppler of lower extremities today. RECOMMENDATION: 1. Advance diet to diabetic regular diet. 2. Continue to trend blood count. 3. We would hold off further anticoagulation if possible given negative lower extremity Doppler study today. 4. If the patient can tolerate diet and blood count remained stable, can be discharged to home tomorrow with followup GI in 2 to 3 week. Job ID: [id number]
[2019-05-01] MEDS: risperiDONE 1 MG TAB PO SCH (20:54)
[2019-05-01] MEDS: Lisinopril 20 MG TAB PO SCH (20:56)
[2019-05-01] MEDS: Melatonin 3 MG TAB PO PRN (20:56)
[2019-05-02] MEDS: Sodium Chloride 0.9% 1,000 ML IV SCH ×2 (03:57→18:16)
[2019-05-02 06:10] LABS: #Eosinphils 0.1 thou/uL (0.0-0.7); #Lymphocytes 1.3 thou/uL (1.20-3.40); #Monocytes 0.6 thou/uL (0.11-0.59); #Neutrophils 11.3 thou/uL (1.40-6.50); %Basophils 0.3 % (0.0-1.0); %Eosinophils 0.6 % (0.0-10.0); %Lymphocytes 10.1 % (21.0-51.0); %Monocytes 4.2 % (0.0-10.0); %Neutrophils 84.8 % (42.0-75.0); Mean Corpuscular HGB CONC 31.9 g/dL (32.0-36.0); Mean Corpuscular Volume 93.9 fL (78.0-98.0); Mean Platelet Volume 6.4 fL (7.4-10.4); Platelet Count 420 thou/uL (130-400); RBC Distribution Width 17.9 % (11.5-14.5); Red Blood Cell (RBC) Count 3.02 mill/uL (4.20-5.40); White Blood Cell (WBC) Count 13.3 thou/uL (4.8-10.8)
[2019-05-02 06:18] LABS: Anion Gap 12 mmol/L (10-20); BUN (Urea Nitrogen) 22 mg/dL (9.8-20.1); Calc. Creatinine Clearance 0 mL/min (70-130); Calcium 8.4 mg/dL (7.8-10.44); Carbon Dioxide 18 mmol/L (23-31); Chloride 110 mmol/L (98-107); Estimated GFR-MDRD 73; Potassium 4.8 mmol/L (3.5-5.1); Sodium 135 mmol/L (136-145)
[2019-05-02 06:21] LABS: Glucose 46 mg/dL (80-115)
[2019-05-02] MEDS: Carvedilol 25 MG TAB PO SCH ×2 (11:03→18:16)
[2019-05-02] MEDS: Fluconazole 100 MG TAB PO SCH (11:03)
[2019-05-02] MEDS: metFORMIN 500 MG TAB PO SCH ×2 (11:03→20:31)
[2019-05-02] MEDS: Magnesium Oxide 400 MG TAB PO SCH (11:04)
[2019-05-02] MEDS: hydrALAZINE 25 MG TAB PO SCH ×3 (11:04→20:32)
[2019-05-02] MEDS: Ferrous Sulfate 325 MG TAB PO SCH ×2 (11:04→18:16)
[2019-05-02] MEDS: Docusate 100 MG CAP PO SCH (11:04)
[2019-05-02] MEDS: Enoxaparin Sodium 40 MG/0.4 ML SYRINGE SC SCH (11:04)
--- NOTE | 2019-05-02 12:08 | PDOC.HOSPP ---
- Subjective Encounter Date: 05/02/19 Encounter Time: 09:00 Subjective: is still sleepy but arousable no sob or abd pain feels better, at bedside - Objective Vital Signs & Weight: Vital Signs (12 hours) Temp Pulse Resp BP BP Pulse Ox 05/02/19 07:50 97.9 F 75 16 163/70 H 100 05/02/19 04:12 97.4 F L 86 18 121/75 99 05/02/19 01:00 98.4 F 88 18 112/68 99 Weight Weight 6.088 oz Most Recent Monitor Data Heart Rate from ECG 94 NIBP 192/108 NIBP BP-Mean 136 Respiration from ECG 20 SpO2 100 I&O: 05/01/19 05/02/19 05/03/19 06:59 06:59 06:59 Intake Total 2030 Output Total 3100 900 650 Balance -1070 -900 -650 Result Diagrams: 05/02/19 05:30 05/02/19 05:30 Additional Labs: Accuchecks 05/02/19 05/01/19 05/01/19 06:40 20:40 15:33 POC Glucose 265 H 206 H 102 Hospitalist ROS - Medication Medications: Active Medications Generic Name Dose Route Start Last Admin Trade Name Freq PRN Reason Stop Dose Admin Acetaminophen 650 mg 04/28/19 22:18 04/30/19 20:35 Tylenol PO 650 mg Q4H PRN Administration Headache/Fever/Mild Pain (1-3) Carvedilol 25 mg 04/29/19 17:00 05/02/19 11:03 Coreg PO 25 mg BID-WM DIMA Administration Dextrose/Water 25 gm 04/29/19 05:02 05/02/19 06:24 Dextrose 50% SLOW IVP 25 gm PRN PRN Administration Hypoglycemia Docusate Sodium 100 mg 04/30/19 09:00 05/02/19 11:04 Colace PO 100 mg DAILY DIMA Administration Enoxaparin Sodium 40 mg 04/29/19 09:00 05/02/19 11:04 Lovenox SC 40 mg 0900 DIMA Administration Ferrous Sulfate 325 mg 04/29/19 17:00 05/02/19 11:04 Feosol PO 325 mg BID-WM DIMA Administration Fluconazole 200 mg 05/01/19 09:00 05/02/19 11:03 Diflucan PO 200 mg DAILY DIMA Administration Hydralazine HCl 50 mg 04/29/19 21:00 05/02/19 11:04 Apresoline PO 50 mg TID DIMA Administration Sodium Chloride 1,000 mls @ 60 mls/hr 04/30/19 11:15 05/02/19 03:57 Normal Saline 0.9% IV Not Given .[id number] [facility] Insulin Human Lispro 0 units 04/29/19 05:02 05/01/19 20:57 Humalog SC 3 unit .MILD SLIDING SCALE PRN Administration Mild Correctional Scale Lisinopril 20 mg 04/29/19 21:00 05/01/19 20:56 Zestril PO 20 mg HS DIMA Administration Magnesium Oxide 400 mg 04/30/19 09:00 05/02/19 11:04 Magnesium Oxide PO 400 mg DAILY DIMA Administration Melatonin 3 mg 04/30/19 21:03 05/01/19 20:56 Melatonin PO 3 mg HSPRN PRN Administration Insomnia Metformin HCl 500 mg 04/29/19 21:00 05/02/19 11:03 Glucophage PO 500 mg BID DIMA Administration Morphine Sulfate 4 mg 04/28/19 23:58 05/01/19 17:56 Morphine SLOW IVP 4 mg Q6H PRN Administration Moderate to Severe Pain (4-10) Ondansetron HCl 4 mg 04/28/19 22:18 04/28/19 23:58 Zofran IVP 4 mg Q6H PRN Administration Nausea/Vomiting Pantoprazole Sodium 40 mg 04/29/19 21:00 05/02/19 11:05 Protonix PO 40 mg BID DIMA Administration Risperidone 2 mg 04/29/19 21:00 05/01/19 20:54 Risperidone PO 2 mg HS DIMA Administration Tizanidine HCl 4 mg 04/29/19 13:11 04/29/19 21:45 Zanaflex PO 4 mg QID PRN Administration Muscle Spasm - Exam General Appearance: awake alert Eye: PERRL, anicteric sclera ENT: no oropharyngeal lesions, moist mucosa Neck: supple, no JVD Heart: RRR, no murmur Respiratory: no wheezes, no rales Gastrointestinal: soft, non-tender, non-distended, normal bowel sounds Extremities: no cyanosis, no edema Neurological: cranial nerve grossly intact, no focal deficits Hosp A/P (1) PUD (peptic ulcer disease) Code(s): K27.9 - PEPTIC ULC, SITE UNSP, UNSP AC OR CHR, W/O HEMOR OR PERF Status: Chronic (2) Acute blood loss anemia Code(s): D62 - ACUTE POSTHEMORRHAGIC ANEMIA Status: Acute (3) Melena Code(s): K92.1 - MELENA Status: Resolved (4) Adrenal insufficiency Code(s): E27.40 - UNSPECIFIED ADRENOCORTICAL INSUFFICIENCY Status: Resolved (5) H/O deep venous thrombosis Code(s): Z86.718 - PERSONAL HISTORY OF OTHER VENOUS THROMBOSIS AND EMBOLISM Status: Resolved (6) Chronic back pain Code(s): M54.9 - DORSALGIA, UNSPECIFIED; G89.29 - OTHER CHRONIC PAIN Status: Chronic Qualifiers: Back pain location: low back pain Back pain laterality: bilateral (7) Diabetes type 2, controlled Code(s): E11.9 - TYPE 2 DIABETES MELLITUS WITHOUT COMPLICATIONS Status: Chronic Qualifiers: Diabetes mellitus long-term insulin use: without expander use (8) Dyslipidemia Code(s): E78.5 - HYPERLIPIDEMIA, UNSPECIFIED Status: Chronic (9) Hypertension Code(s): I10 - ESSENTIAL (PRIMARY) HYPERTENSION Status: Chronic Qualifiers: (10) Iron deficiency anemia Code(s): D50.9 - IRON DEFICIENCY ANEMIA, UNSPECIFIED Status: Chronic (11) Schizophrenia Code(s): F20.9 - SCHIZOPHRENIA, UNSPECIFIED Status: Chronic Qualifiers: - Plan EGD showed multiple ulcers, none actively bleeding, also had findings s/o esophageal candidiasis. hemoglobin stable around 9g. continue home dose of risperdal protonix bid, diflucan, morphine prn usg venous doppler shows clearing of prior non occlusive thrombus. has severe knee and hip osteoarthritis and cannot mobilize much due to pain await esophageal biopsy HIV, ac hep panel is non reactive family prefer skilled placement
[2019-05-02] MEDS: Acetaminophen 325 MG TAB PO PRN ×2 (15:40→20:34)
--- NOTE | 2019-05-02 18:20 | PRG ---
DATE OF SERVICE: 05/02/2019 SUBJECTIVE: Ms. Bagley has had 1 bowel movement today, which was soft and formed. It is dark on iron supplementation. She has had no nausea or vomiting. She is tolerating a solid diet at this point. OBJECTIVE: VITAL SIGNS: Temperature 98.8, pulse 93, and blood pressure 160/80. GENERAL: She is in no acute distress. Alert and oriented. LUNGS: Clear to auscultation bilaterally. HEART: Regular rate and rhythm without murmur. ABDOMEN: Soft, nontender, and nondistended. Bowel sounds are present. EXTREMITIES: No lower extremity edema. LABORATORY DATA: White blood cell count 13.3, hemoglobin 9.0, and platelets 420. INR 1.0. Creatinine 0.79. IMPRESSION: 1. Gastric and duodenal ulcers. She was originally on NSAIDs, however, even after holding NSAIDs and adding in proton pump inhibitors, the ulcers seem to have worsened. Anticoagulation has been held for now. 2. Anemia of acute blood loss, status post transfusion. 3. Fungal esophagitis. RECOMMENDATIONS: 1. Continue pantoprazole twice daily. 2. Fluconazole for a total 14-day course. 3. Avoid NSAIDs. 4. Await gastrin level. 5. I will sign off. Please call if GI can be of assistance. Job ID: [id number]
[2019-05-02] MEDS: risperiDONE 1 MG TAB PO SCH (20:30)
[2019-05-02] MEDS: Lisinopril 20 MG TAB PO SCH (20:31)
[2019-05-03] MEDS: Acetaminophen 325 MG TAB PO PRN ×4 (02:03→21:01)
[2019-05-03] MEDS: Sodium Chloride 0.9% 1,000 ML IV SCH ×2 (05:15→21:31)
[2019-05-03 05:39] LABS: #Eosinphils 0.1 thou/uL (0.0-0.7); #Lymphocytes 1.4 thou/uL (1.20-3.40); #Monocytes 0.5 thou/uL (0.11-0.59); #Neutrophils 7.8 thou/uL (1.40-6.50); %Basophils 0.3 % (0.0-1.0); %Eosinophils 0.7 % (0.0-10.0); %Monocytes 5.3 % (0.0-10.0); %Neutrophils 79.7 % (42.0-75.0); Hemoglobin 8.5 g/dL (12.0-16.0); Mean Corpuscular HGB CONC 33.6 g/dL (32.0-36.0); Mean Corpuscular Volume 92.2 fL (78.0-98.0); Mean Platelet Volume 6.4 fL (7.4-10.4); Platelet Count 466 thou/uL (130-400); RBC Distribution Width 17.5 % (11.5-14.5); Red Blood Cell (RBC) Count 2.74 mill/uL (4.20-5.40); White Blood Cell (WBC) Count 9.7 thou/uL (4.8-10.8)
[2019-05-03 05:53] LABS: Anion Gap 11 mmol/L (10-20); BUN (Urea Nitrogen) 17 mg/dL (9.8-20.1); Calc. Creatinine Clearance 81 mL/min (70-130); Calcium 8.7 mg/dL (7.8-10.44); Carbon Dioxide 22 mmol/L (23-31); Chloride 104 mmol/L (98-107); Estimated GFR-MDRD 69; Glucose 118 mg/dL (80-115); Sodium 132 mmol/L (136-145)
[2019-05-03] MEDS: Enoxaparin Sodium 40 MG/0.4 ML SYRINGE SC SCH (07:59)
[2019-05-03] MEDS: Ondansetron PF 4 MG/2 ML Vial IVP PRN (08:26)
[2019-05-03] MEDS: Carvedilol 25 MG TAB PO SCH ×2 (08:29→17:08)
[2019-05-03] MEDS: Docusate 100 MG CAP PO SCH (08:29)
[2019-05-03] MEDS: Magnesium Oxide 400 MG TAB PO SCH (08:29)
[2019-05-03] MEDS: Fluconazole 100 MG TAB PO SCH (08:29)
[2019-05-03] MEDS: hydrALAZINE 25 MG TAB PO SCH ×3 (08:30→21:00)
[2019-05-03] MEDS: Ferrous Sulfate 325 MG TAB PO SCH ×2 (08:30→16:59)
[2019-05-03] MEDS: metFORMIN 500 MG TAB PO SCH ×2 (08:30→21:01)
[2019-05-03] MEDS: tiZANidine HCl 4 MG TAB PO PRN ×2 (10:14→22:02)
[2019-05-03] MEDS: HumaLOG 300 UNITS/3 ML VIAL SC PRN (12:30)
--- NOTE | 2019-05-03 13:39 | PDOC.HOSPP ---
- Subjective Encounter Date: 05/03/19 Encounter Time: 08:00 Subjective: no sob or chest pain or abd pain feels better - Objective Vital Signs & Weight: Vital Signs (12 hours) Temp Pulse Resp BP Pulse Ox 05/03/19 11:32 99.0 F 69 20 93/52 L 98 05/03/19 08:30 93 05/03/19 08:00 98.6 F 93 16 166/80 H 100 05/03/19 03:12 98.9 F 91 16 145/71 H 100 Weight Weight 172 lb Most Recent Monitor Data Heart Rate from ECG 94 NIBP 192/108 NIBP BP-Mean 136 Respiration from ECG 20 SpO2 100 I&O: 05/02/19 05/03/19 05/04/19 06:59 06:59 06:59 Intake Total 1250 Output Total 900 2100 Balance -900 -850 Result Diagrams: 05/03/19 05:23 05/03/19 05:23 Additional Labs: Accuchecks 05/03/19 05/03/19 05/02/19 11:33 05:20 19:52 POC Glucose 195 H 133 H 154 H 05/02/19 15:50 POC Glucose 142 H Hospitalist ROS - Medication Medications: Active Medications Generic Name Dose Route Start Last Admin Trade Name Freq PRN Reason Stop Dose Admin Acetaminophen 650 mg 04/28/19 22:18 05/03/19 08:30 Tylenol PO 650 mg Q4H PRN Administration Headache/Fever/Mild Pain (1-3) Carvedilol 25 mg 04/29/19 17:00 05/03/19 08:29 Coreg PO 25 mg BID-WM DIMA Administration Dextrose/Water 25 gm 04/29/19 05:02 05/02/19 06:24 Dextrose 50% SLOW IVP 25 gm PRN PRN Administration Hypoglycemia Docusate Sodium 100 mg 04/30/19 09:00 05/03/19 08:29 Colace PO 100 mg DAILY DIMA Administration Enoxaparin Sodium 40 mg 04/29/19 09:00 05/03/19 07:59 Lovenox SC Not Given 0900 DIMA Ferrous Sulfate 325 mg 04/29/19 17:00 05/03/19 08:30 Feosol PO 325 mg BID-WM DIMA Administration Fluconazole 200 mg 05/01/19 09:00 05/03/19 08:29 Diflucan PO 200 mg DAILY DIMA Administration Hydralazine HCl 50 mg 04/29/19 21:00 05/03/19 08:30 Apresoline PO 50 mg TID DIMA Administration Sodium Chloride 1,000 mls @ 60 mls/hr 04/30/19 11:15 05/03/19 05:15 Normal Saline 0.9% IV Not Given .[id number] [facility] Insulin Human Lispro 0 units 04/29/19 05:02 05/01/19 20:57 Humalog SC 3 unit .MILD SLIDING SCALE PRN Administration Mild Correctional Scale Lisinopril 20 mg 04/29/19 21:00 05/02/19 20:31 Zestril PO 20 mg HS DIMA Administration Magnesium Oxide 400 mg 04/30/19 09:00 05/03/19 08:29 Magnesium Oxide PO 400 mg DAILY DIMA Administration Melatonin 3 mg 04/30/19 21:03 05/01/19 20:56 Melatonin PO 3 mg HSPRN PRN Administration Insomnia Metformin HCl 500 mg 04/29/19 21:00 05/03/19 08:30 Glucophage PO 500 mg BID DIMA Administration Morphine Sulfate 4 mg 04/28/19 23:58 05/01/19 17:56 Morphine SLOW IVP 4 mg Q6H PRN Administration Moderate to Severe Pain (4-10) Ondansetron HCl 4 mg 04/28/19 22:18 05/03/19 08:26 Zofran IVP 4 mg Q6H PRN Administration Nausea/Vomiting Pantoprazole Sodium 40 mg 04/29/19 21:00 05/03/19 08:29 Protonix PO 40 mg BID DIMA Administration Risperidone 2 mg 04/29/19 21:00 05/02/19 20:30 Risperidone PO 2 mg HS DIMA Administration Tizanidine HCl 4 mg 04/29/19 13:11 05/03/19 10:14 Zanaflex PO 4 mg QID PRN Administration Muscle Spasm - Exam General Appearance: awake alert Eye: PERRL, anicteric sclera ENT: no oropharyngeal lesions, moist mucosa Neck: supple, no JVD Heart: RRR, no murmur, no gallops Respiratory: no wheezes, no rales Gastrointestinal: soft, non-tender, non-distended, normal bowel sounds Extremities: no cyanosis, no edema Neurological: cranial nerve grossly intact, no focal deficits Psychiatric: normal affect, A&O x 3 Hosp A/P (1) PUD (peptic ulcer disease) Code(s): K27.9 - PEPTIC ULC, SITE UNSP, UNSP AC OR CHR, W/O HEMOR OR PERF Status: Chronic (2) Acute blood loss anemia Code(s): D62 - ACUTE POSTHEMORRHAGIC ANEMIA Status: Acute (3) Melena Code(s): K92.1 - MELENA Status: Resolved (4) Adrenal insufficiency Code(s): E27.40 - UNSPECIFIED ADRENOCORTICAL INSUFFICIENCY Status: Resolved (5) H/O deep venous thrombosis Code(s): Z86.718 - PERSONAL HISTORY OF OTHER VENOUS THROMBOSIS AND EMBOLISM Status: Resolved (6) Chronic back pain Code(s): M54.9 - DORSALGIA, UNSPECIFIED; G89.29 - OTHER CHRONIC PAIN Status: Chronic Qualifiers: Back pain location: low back pain Back pain laterality: bilateral (7) Diabetes type 2, controlled Code(s): E11.9 - TYPE 2 DIABETES MELLITUS WITHOUT COMPLICATIONS Status: Chronic Qualifiers: Diabetes mellitus care home insulin use: without care home use (8) Dyslipidemia Code(s): E78.5 - HYPERLIPIDEMIA, UNSPECIFIED Status: Chronic (9) Hypertension Code(s): I10 - ESSENTIAL (PRIMARY) HYPERTENSION Status: Chronic Qualifiers: (10) Iron deficiency anemia Code(s): D50.9 - IRON DEFICIENCY ANEMIA, UNSPECIFIED Status: Chronic (11) Schizophrenia Code(s): F20.9 - SCHIZOPHRENIA, UNSPECIFIED Status: Chronic Qualifiers: - Plan EGD showed multiple ulcers, none actively bleeding, biopsy confirms esophageal candidiasis. hemoglobin stable around 9g. continue home dose of risperdal protonix bid, diflucan x 12 days, morphine prn usg venous doppler shows clearing of prior non occlusive thrombus. has severe left hip osteoarthritis and cannot mobilize much due to pain, outpt f /u with HIV, ac hep panel is non reactive May dc anytime if placement is ready
[2019-05-03] MEDS ORDERED: Enoxaparin Sodium 40 MG/0.4 ML SYRINGE SC SCH (17:00)
[2019-05-03] MEDS: risperiDONE 1 MG TAB PO SCH (21:00)
[2019-05-03] MEDS: Lisinopril 20 MG TAB PO SCH (21:00)
[2019-05-04] MEDS: Acetaminophen 325 MG TAB PO PRN ×2 (01:49→05:28)
[2019-05-04] MEDS: Melatonin 3 MG TAB PO PRN (01:49)
[2019-05-04 05:55] LABS: #Eosinphils 0.1 thou/uL (0.0-0.7); #Lymphocytes 1.3 thou/uL (1.20-3.40); #Monocytes 0.5 thou/uL (0.11-0.59); #Neutrophils 7.2 thou/uL (1.40-6.50); %Basophils 0.4 % (0.0-1.0); %Eosinophils 1.1 % (0.0-10.0); %Lymphocytes 14.5 % (21.0-51.0); %Monocytes 5.7 % (0.0-10.0); %Neutrophils 78.4 % (42.0-75.0); Hemoglobin 8.4 g/dL (12.0-16.0); Mean Corpuscular HGB CONC 33.2 g/dL (32.0-36.0); Mean Corpuscular Hemoglobin 30.7 pg (27.0-31.0); Mean Corpuscular Volume 92.5 fL (78.0-98.0); Mean Platelet Volume 6.5 fL (7.4-10.4); Platelet Count 423 thou/uL (130-400); RBC Distribution Width 17.3 % (11.5-14.5); Red Blood Cell (RBC) Count 2.73 mill/uL (4.20-5.40); White Blood Cell (WBC) Count 9.2 thou/uL (4.8-10.8)
[2019-05-04 06:17] LABS: Anion Gap 10 mmol/L (10-20); BUN (Urea Nitrogen) 17 mg/dL (9.8-20.1); Calc. Creatinine Clearance 76 mL/min (70-130); Calcium 8.7 mg/dL (7.8-10.44); Carbon Dioxide 25 mmol/L (23-31); Chloride 103 mmol/L (98-107); Estimated GFR-MDRD 64; Glucose 116 mg/dL (80-115); Potassium 4.8 mmol/L (3.5-5.1); Sodium 133 mmol/L (136-145)
[2019-05-04] MEDS ORDERED: Prevnar 13-Val Conj/PF 0.5 ML SYRINGE IM ONE (08:45)
[2019-05-04] MEDS ORDERED: FLU VACC TS2019-20(65YR UP)/PF 180 MCG/0.5 ML SYRINGE IM ONE (09:00)
[2019-05-04] MEDS: Fluconazole 100 MG TAB PO SCH (09:28)
[2019-05-04] MEDS: metFORMIN 500 MG TAB PO SCH (09:28)
[2019-05-04] MEDS: hydrALAZINE 25 MG TAB PO SCH ×2 (09:29→16:24)
[2019-05-04] MEDS: Docusate 100 MG CAP PO SCH (09:29)
[2019-05-04] MEDS: Magnesium Oxide 400 MG TAB PO SCH (09:29)
[2019-05-04] MEDS: Carvedilol 25 MG TAB PO SCH ×2 (09:29→16:24)
[2019-05-04] MEDS: HYDROcodone/Acetaminophen 5/325 mg Tablet PO PRN ×3 (09:30→16:25)
[2019-05-04] MEDS: Ferrous Sulfate 325 MG TAB PO SCH ×2 (09:30→16:24)
[2019-05-04] MEDS: Enoxaparin Sodium 40 MG/0.4 ML SYRINGE SC SCH (09:31)
[2019-05-04] MEDS: HumaLOG 300 UNITS/3 ML VIAL SC PRN (11:52)
[2019-05-04 12:33] LABS: ANA Symphony (Qualitative) Negative (Negative); ANA Symphony (Quantitative) 0.2 Ratio (< 0.7 Negative); dsDNA IgG Antibody 2.4 IU/mL (<10 Negative)
[2019-05-04] MEDS: Sodium Chloride 0.9% 1,000 ML IV SCH (14:15)
[2019-05-04 16:02] VITALS: BP 156/82; TEMP 98.6
--- NOTE | 2019-05-04 16:32 | PDOC.HOSPP ---
- Subjective Subjective: Seen and examined. Pain in the hips with ambulation/movement. We are planning for subacute placement. Review of systems is otherwise benign. - Objective Vital Signs & Weight: Vital Signs (12 hours) Temp Pulse Resp BP BP Pulse Ox 05/04/19 16:24 77 05/04/19 15:17 98.6 F 77 16 156/82 H 96 05/04/19 11:07 99.1 F 87 16 122/73 100 05/04/19 09:29 86 05/04/19 07:13 98.6 F 86 16 149/81 H 100 Weight Weight 171 lb 15.369 oz Most Recent Monitor Data Heart Rate from ECG 94 NIBP 192/108 NIBP BP-Mean 136 Respiration from ECG 20 SpO2 100 I&O: 05/03/19 05/04/19 05/05/19 06:59 06:59 06:59 Intake Total 1250 1450 Output Total 2100 1050 Balance -850 400 Result Diagrams: 05/04/19 05:30 05/04/19 05:30 Additional Labs: Accuchecks 05/04/19 05/04/19 05/04/19 15:21 11:04 05:38 POC Glucose 97 235 H 116 H 05/03/19 05/03/19 21:18 17:05 POC Glucose 167 H 100 Radiology Reviewed by me: Yes Hospitalist ROS - Review of Systems All other systems reviewed; all pertinent +/- noted in HPI/Subj - Medication Medications: Active Medications Generic Name Dose Route Start Last Admin Trade Name Freq PRN Reason Stop Dose Admin Acetaminophen 650 mg 04/28/19 22:18 05/04/19 05:28 Tylenol PO 650 mg Q4H PRN Administration Headache/Fever/Mild Pain (1-3) Hydrocodone Bitart/Acetaminophen 1 tab 05/04/19 08:49 05/04/19 16:25 Dixon 5/325 PO 1 tab Q4H PRN Administration Moderate to Severe Pain (6-10) Carvedilol 25 mg 04/29/19 17:00 05/04/19 16:24 Coreg PO 25 mg BID-WM DIMA Administration Dextrose/Water 25 gm 04/29/19 05:02 05/02/19 06:24 Dextrose 50% SLOW IVP 25 gm PRN PRN Administration Hypoglycemia Docusate Sodium 100 mg 04/30/19 09:00 05/04/19 09:29 Colace PO 100 mg DAILY DIMA Administration Enoxaparin Sodium 40 mg 04/29/19 09:00 05/04/19 09:31 Lovenox SC 40 mg 0900 DIMA Administration Ferrous Sulfate 325 mg 04/29/19 17:00 05/04/19 16:24 Feosol PO 325 mg BID-WM DIMA Administration Fluconazole 200 mg 05/01/19 09:00 05/04/19 09:28 Diflucan PO 200 mg DAILY DIMA Administration Hydralazine HCl 50 mg 04/29/19 21:00 05/04/19 16:24 Apresoline PO 50 mg TID DIMA Administration Sodium Chloride 1,000 mls @ 60 mls/hr 04/30/19 11:15 05/04/19 14:15 Normal Saline 0.9% IV Not Given .[id number] [facility] Insulin Human Lispro 0 units 04/29/19 05:02 05/04/19 11:52 Humalog SC 3 unit .MILD SLIDING SCALE PRN Administration Mild Correctional Scale Lisinopril 20 mg 04/29/19 21:00 05/03/19 21:00 Zestril PO 20 mg HS DIMA Administration Magnesium Oxide 400 mg 04/30/19 09:00 05/04/19 09:29 Magnesium Oxide PO 400 mg DAILY DIMA Administration Melatonin 3 mg 04/30/19 21:03 05/04/19 01:49 Melatonin PO 3 mg HSPRN PRN Administration Insomnia Metformin HCl 500 mg 04/29/19 21:00 05/04/19 09:28 Glucophage PO 500 mg BID DIMA Administration Morphine Sulfate 4 mg 04/28/19 23:58 05/01/19 17:56 Morphine SLOW IVP 4 mg Q6H PRN Administration Moderate to Severe Pain (4-10) Ondansetron HCl 4 mg 04/28/19 22:18 05/03/19 08:26 Zofran IVP 4 mg Q6H PRN Administration Nausea/Vomiting Pantoprazole Sodium 40 mg 04/29/19 21:00 05/04/19 09:29 Protonix PO 40 mg BID DIMA Administration Risperidone 2 mg 04/29/19 21:00 05/03/19 21:00 Risperidone PO 2 mg HS DIMA Administration Sodium Chloride 10 ml 04/30/19 07:18 05/04/19 09:32 Flush - Normal Saline IVF 10 ml PRN PRN Administration Saline Flush Tizanidine HCl 4 mg 04/29/19 13:11 05/03/19 22:02 Zanaflex PO 4 mg QID PRN Administration Muscle Spasm - Exam General Appearance: NAD, awake alert Eye: anicteric sclera ENT: normocephalic atraumatic, moist mucosa Neck: supple, symmetric, no lymphadenopathy Heart: no murmur, no gallops, no rubs Respiratory: CTAB, no wheezes, no rales, no ronchi, normal chest expansion Gastrointestinal: soft, non-tender, no guarding, no rigidity Extremities: 1+ LE edema Skin: no lesions, no rashes Neurological: cranial nerve grossly intact, no focal deficits Musculoskeletal: generalized weakness Psychiatric: A&O x 3 Hosp A/P (1) Adrenal insufficiency Code(s): E27.40 - UNSPECIFIED ADRENOCORTICAL INSUFFICIENCY Status: Resolved (2) Chronic back pain Code(s): M54.9 - DORSALGIA, UNSPECIFIED; G89.29 - OTHER CHRONIC PAIN Status: Chronic Qualifiers: Back pain location: low back pain Back pain laterality: bilateral (3) Diabetes type 2, controlled Code(s): E11.9 - TYPE 2 DIABETES MELLITUS WITHOUT COMPLICATIONS Status: Chronic Qualifiers: Diabetes mellitus api architect insulin use: without alf use (4) Dyslipidemia Code(s): E78.5 - HYPERLIPIDEMIA, UNSPECIFIED Status: Chronic (5) Hypertension Code(s): I10 - ESSENTIAL (PRIMARY) HYPERTENSION Status: Chronic Qualifiers: (6) Iron deficiency anemia Code(s): D50.9 - IRON DEFICIENCY ANEMIA, UNSPECIFIED Status: Chronic (7) Obesity (BMI 30-39.9) Code(s): E66.9 - OBESITY, UNSPECIFIED Status: Chronic (8) PUD (peptic ulcer disease) Code(s): K27.9 - PEPTIC ULC, SITE UNSP, UNSP AC OR CHR, W/O HEMOR OR PERF Status: Chronic (9) Schizophrenia Code(s): F20.9 - SCHIZOPHRENIA, UNSPECIFIED Status: Chronic Qualifiers: (10) NING (acute kidney injury) Code(s): N17.9 - ACUTE KIDNEY FAILURE, UNSPECIFIED Status: Resolved (11) Epigastric abdominal pain Code(s): R10.13 - EPIGASTRIC PAIN Status: Resolved (12) H/O deep venous thrombosis Code(s): Z86.718 - PERSONAL HISTORY OF OTHER VENOUS THROMBOSIS AND EMBOLISM Status: Resolved - Plan Plan: discharge planning to subacute facility case management consultation, recommendations appreciated S/p EGD patient with fungal esophagitis, on Diflucan oral pain control patient was severe hip osteoarthritis, will have follow up with orthopedic surgery in the outpatient setting in the near future continue other home medications as able blood pressure control blood sugar control G.I. prophylaxis DVT prophylaxis
--- NOTE | 2019-05-04 20:19 | DIS ---
DATE OF ADMISSION: 04/28/2019 DATE OF DISCHARGE: 05/04/2019 REASON FOR HOSPITALIZATION: Abdominal pain and generalized weakness. PROCEDURES PERFORMED AND TREATMENTS RENDERED: The patient was admitted to [facility] on 04/29/2019, please see full history and physical from Dr. Castillo for details. The patient with generalized weakness and abdominal pain present on admission. The patient with an extensive past medical history of diabetes, DVT, hypertension, chronic anemia, elevated BMI, depression, schizophrenia, and peptic ulcer disease with acute blood loss anemia. The patient was seen and evaluated by admitting physician and had a complete and thorough workup. The patient had a CT scan of the abdomen, please see full report for details. There were no acute intraabdominal findings. The patient was seen and evaluated by Nephrology, please see full consultation notes and progress notes from Dr. Espinoza for details. The patient with acute kidney injury on chronic kidney disease, was managed appropriately by Nephrology throughout her hospitalization. The patient was seen and evaluated by Gastroenterology, please see full consultation notes and progress notes from Dr. Carrera from 04/30/[address] Carrera recommending endoscopy which was performed on 04/30/2019 - please see full operative report for details - with the indications of possible melena and history of gastric ulcers, the patient went for EGD. Please see full operative report for details. EGD was found to have a large clean-based prepyloric ulcer in addition to multiple small and medium-sized ulcers in the proximal duodenum and duodenal sweep with some friability and mild oozing around the edges, but no visible vessels that needed to be treated. The patient was also found to have distal esophageal plaque suspicious for candidiasis, which was biopsied, please see full biopsy report for details. Gastroenterology recommending antifungal therapy as biopsy results did demonstrate Giovanna esophagitis without Hameed disease. The patient also having chronic hip pain, was recommended to follow up with Orthopedic Surgery in the outpatient setting electively. The patient was recommended safe for discharge by all specialists. The patient profoundly weak and debilitated, was recommended placement in subacute facility. The patient was discharged on 05/04/2019 in stable condition. CONDITION ON DISCHARGE: Stable. SPECIFIC INSTRUCTIONS FOR THE PATIENT/FAMILY: 1. The patient is recommended safe for transfer to subacute facility. 2. The patient is recommended to take all medications as directed, to be re-evaluated by admitting physician and adjusted as appropriate. 3. The patient is recommended to complete a full course of Diflucan for treatment of fungal esophagitis with Giovanna species. 4. The patient is recommended to follow up with Gastroenterology in the outpatient setting in the next 2 to 4 weeks. 5. The patient is recommended to follow up with Nephrology in the outpatient setting in the next 1 to 2 weeks. 6. The patient is recommended to follow up with primary care physician in the next 5 to 7 days. 7. The patient is recommended to follow up with Orthopedic Surgery in the next 2 to 4 weeks. 8. The patient is recommended to return to acute care hospital immediately if signs or symptoms return, worsen, or any other new symptoms occur. DISCHARGE MEDICATIONS: Please see full discharge medication list for details. 1. Metformin 500 mg one tablet p.o. b.i.d. 2. Tizanidine 4 mg p.o. 4 times per day p.r.n. muscle spasms. 3. Risperidone 2 mg p.o. at bedtime. 4. Hydralazine 50 mg one tablet p.o. t.i.d. 5. Zofran 4 mg p.o. q.6 hours p.r.n. nausea and vomiting. 6. Magnesium oxide 400 mg one tablet p.o. daily. 7. Lisinopril 20 mg one tablet p.o. at bedtime. 8. Furosemide 20 mg one tablet p.o. daily, p.r.n. edema. 9. Ferrous sulfate 325 mg one tablet p.o. b.i.d. 10. Docusate 100 mg p.o. daily. 11. Carvedilol 25 mg p.o. b.i.d. 12. Tylenol No. 3 with codeine one tablet p.o. q.4 hours p.r.n. severe pain. 13. Protonix 40 mg one tablet p.o. b.i.d. 14. Diflucan 200 mg p.o. daily, recommended to complete additional 11 days for a full course. Greater than 37 minutes spent coordinating care and discharge process for this patient. Job ID: [id number]
--- NOTE | 2019-05-07 10:43 | PQF ---
TRINIDAD ROMERO ERIK [id number] SURG [id number] CLINICAL DOCUMENTATION CLARIFICATION FORM: POST DISCHARGE Addendum to original discharge summary date: ____ Late entry note date: __ DATE:05/07/2019 ATTN:AMEENA BROWN Please exercise your independent, professional judgment in responding to the clarification form. Clinical indicators are provided on the bottom of this form for your review Please check appropriate box(s): kindly clarify the melena etiology [ ] Melena due to Viviana Esophagitis [ XX ] Melena due to Pyloric ulcer [ ] Melena due to Duodenal ulcer [ ] Other diagnosis _ [ ] Unable to determine n addition, please specify: Present on Admission (POA): [ XX ] Yes [ ] No [ ] Unable to determine For continuity of documentation, please document condition throughout progress notes and discharge summary. Thank You. CLINICAL INDICATORS - SIGNS / SYMPTOMS / LABS Indications; Melana Acute blood loss anemia-Documented in OP note on 04/29 by penny Kidd History of gastric ulcer seen on recent EGD 04/18 -Documented in OP note on by penny Kidd large clean based pre-pyloric ulcer-Documented in OP note on 04/29 by penny Kidd Multiple small to medium sized ulcers in the proximal duodenum and duodenal sweep. with some fribility and mild oozing the edges but no visible vessel nothing to treat -Documented in OP note on 04/29 by penny Kidd Gastroenterology recommending antifungal therapy as biopsy result did demonastrate viviana esophagitis -Documented in discharge summary on 05/03 by ameena Brown DO [employer] large clean based pre-pyloric ulcer-Documented in OP note on 04/29 by penny Kidd Multiple small to medium sized ulcers in the proximal duodenum and duodenal sweep. with some fribility and mild oozing the edges but no visible vessel nothing to treat -Documented in OP note on 04/29 by penny Kidd Gastroenterology recommending antifungal therapy as biopsy result did demonstrate viviana esophagitis -Documented in discharge summary on 05/03 by ameena Brown DO TREATMENT: EGD -Documented in OP note on 04/29 by Bernabe Carrera Recommendations: 1-IV proton pump inhibitor every 12 hours -Documented in OP note on 04/29 by penny Kidd Protonix 40 mg IV-Documented in Medication snapshot Gastroenterology recommending antifungal therapy -Documented in discharge summary on 05/03 by ameena Brown DO [employer] Winform [employer] (This form is maintained as a part of the permanent medical record) 2014 [employer]. All Rights Reserved Janee [phone] [phone]
== END 2019-05-04 17:30 | DRG 643 ==
LOC: ERS 17:12 → IMCU/EMU 20:03 → SURG B 04-29 18:29
PROVIDERS: ADMIT Internal Medicine; ATTEND Internal Medicine
PROC: 0DB38ZX Excision of Lower Esophagus, Via Natural or Artificial Opening Endoscopic, Diagnostic (ICD-10-PCS; principal; 2019-04-30)
PROC: 30233N1 Transfusion of Nonautologous Red Blood Cells into Peripheral Vein, Percutaneous Approach (ICD-10-PCS; 2019-04-30)
DX: E27.40 Unspecified adrenocortical insufficiency (principal); K25.4 Chronic or unspecified gastric ulcer with hemorrhage; N17.9 Acute kidney failure, unspecified; E87.1 Hypo-osmolality and hyponatremia; E87.2 Acidosis; D62 Acute posthemorrhagic anemia; B37.81 Candidal esophagitis; E11.22 Type 2 diabetes mellitus with diabetic chronic kidney disease; I12.9 Hypertensive chronic kidney disease with stage 1 through stage 4 chronic kidney disease, or unspecified chronic kidney disease; K25.9 Gastric ulcer, unspecified as acute or chronic, without hemorrhage or perforation; N18.9 Chronic kidney disease, unspecified; E66.01 Morbid (severe) obesity due to excess calories; F41.9 Anxiety disorder, unspecified; F32.9 Major depressive disorder, single episode, unspecified; F20.9 Schizophrenia, unspecified; G89.4 Chronic pain syndrome; E78.5 Hyperlipidemia, unspecified; D50.9 Iron deficiency anemia, unspecified; E87.5 Hyperkalemia; Z68.31 Body mass index [BMI] 31.0-31.9, adult; Z90.710 Acquired absence of both cervix and uterus; Z90.49 Acquired absence of other specified parts of digestive tract; Z86.718 Personal history of other venous thrombosis and embolism; Z87.891 Personal history of nicotine dependence
CPT/HCPCS: 36415; 36416; 36430; 70450; 72125; 74176; 80048; 80053; 80074; 82533; 82805; 82941; 83605; 83690; 83735; 83930; 83935; 84100; 84300; 84443; 84484; 85025; 85610; 85730; 86038; 86225; 86850; 86900; 86901; 87389; 88305; 88312; 88313; 90471; 90662; 90670; 93005; 93970; 94760; 96361; 96374; 96375; C9113; G0008; G0009; J1650; J1720; J2001; J2270; J2405; J2704; J7070; J7512; P9016